=== PATIENT | male | born 1935 | race Caucasian/White ===

== ENCOUNTER 2017-06-23 11:40 | Inpatient (IN) | payer OTHER, MEDICARE ==
[~2017-06-23] VITALS: Ht 188 cm; Wt 90.9 kg
[2017-06-23 11:57] VITALS: BP 136/68; PULSE 79; RESP 20; TEMP 98.1; O2SAT 97
--- NOTE | 2017-06-23 12:08 | PD ---
HPI Chief Complaint: Fall Time Seen by Provider: 11:51 Travel History International Travel<30 days: No Contact w/Intl Traveler<30days: No Traveled to known affect area: No History of Present Illness HPI Patient is an 82-year-old male presenting to emergency Department for evaluation after sustaining a mechanical fall yesterday subsequently bumping his head. Per EMS patient was seen and evaluated at a hospital in [place] however his was not satisfied with the care he received an him here for evaluation. Patient is a very poor historian, he states that he was sitting in a chair got up and fell. He reports right-sided arm pain. He has a contusion to the left forehead. Patient is not quantifying his pain. He does deny any loss of consciousness. is en route to the hospital. PFSH Past Medical History Hx Anticoagulant Therapy: Yes (aspirin daily) Depression: Yes Cardiovascular Problems: Yes High Cholesterol: Yes Diabetes: Yes GERD: Yes Hypertension: Yes Neurologic: Yes (neuropathy) Reproductive: Yes (BPH) Social History Alcohol Use: No Tobacco Use: No Substance Use: No Allergies-Medications (Allergen,Severity, Reaction): Coded Allergies: No Known Allergies (Unverified , 06/23/17) Reported Meds & Prescriptions Reported Meds & Active Scripts Active Reported Aspirin Low Dose (Aspirin) 81 Mg Chew 81 Mg CHEW DAILY Isosorbide Dinitrate 20 Mg Tab 30 Mg PO HS Cymbalta DR (Duloxetine HCl) 30 Mg Capdr 30 Mg PO DAILY Gabapentin 600 Mg Tab 600 Mg PO HS Gabapentin 300 Mg Cap 300 Mg PO DAILY Atorvastatin (Atorvastatin Calcium) 40 Mg Tab 40 Mg PO HS Glimepiride 2 Mg Tab 2 Mg PO DAILY Take with breakfast or first main meal Finasteride 5 Mg Tab 5 Mg PO DAILY Do not crush. Pantoprazole (Pantoprazole Sodium) 40 Mg Tab 40 Mg PO DAILY Review of Systems Except as stated in HPI: all other systems reviewed are Neg Skin: Positive Other (contusion to left forehead) Physical Exam Exam Limitations: Poor Historian Narrative GENERAL: Well-developed, well-nourished, alert male. Resting in no acute distress. SKIN: Warm and dry. Contusion to left forehead. HEAD: Atraumatic. Normocephalic. EYES: Pupils equal and round. No scleral icterus. No injection or drainage. ENT: No nasal bleeding or discharge. Mucous membranes pink and moist. NECK: Trachea midline. No JVD. CARDIOVASCULAR: Regular rate and rhythm. RESPIRATORY: No accessory muscle use. Clear to auscultation. Breath sounds equal bilaterally. GASTROINTESTINAL: Abdomen soft, non-tender, nondistended. Hepatic and splenic margins not palpable. MUSCULOSKELETAL: Extremities without clubbing, cyanosis, or edema. No obvious deformities. NEUROLOGICAL: Awake and alert. 3/5 muscle strength in the right upper extremity , 5/5 muscle strength in left upper extremity and bilateral lower extremities. Patient oriented to self, place PSYCHIATRIC: Appropriate mood and affect; insight and judgment normal. Data Data Last Documented VS Vital Signs Date Time Temp Pulse Resp B/P (MAP) Pulse Ox O2 Delivery O2 Flow Rate FiO2 06/23/17 11:57 98.1 79 20 136/68 (90) [address] Brain W/O Iv Contrast(Rout) (06/23/17 ) Complete Blood Count With Diff (06/23/17 12:17) Comprehensive Metabolic Panel (06/23/17 12:17) Urinalysis - C+S If Indicated (06/23/17 12:17) Ecg Monitoring (06/23/17 12:17) Iv Access Insert/Monitor (06/23/17 12:17) Oximetry (06/23/17 12:17) Sodium Chloride 0.9% Flush (Ns Flush) (06/23/17 12:30) Ct Cerv Spine W/O Contrast (06/23/17 ) Urine Culture (06/23/17 12:55) Sodium Chlor 0.9% 1000 Ml Inj (Ns 1000 M (06/23/17 13:30) Ceftriaxone Inj (Rocephin Inj) (06/23/17 13:30) Urinary Catheter Insert/Apply (06/23/17 13:54) Gabapentin (Neurontin) (06/23/17 14:15) Admit Order (Ed Use Only) (06/23/17 14:42) Labs Laboratory Tests Test 06/23/17 12:40 06/23/17 12:55 White Blood Count 7.4 TH/MM3 Red Blood Count 3.55 MIL/MM3 Hemoglobin 10.4 GM/DL Hematocrit 31.8 % Mean Corpuscular Volume 89.6 FL Mean Corpuscular Hemoglobin 29.2 PG Mean Corpuscular Hemoglobin Concent 32.6 % Red Cell Distribution Width 19.0 % Platelet Count 155 TH/MM3 Mean Platelet Volume 9.4 FL Neutrophils (%) (Auto) 75.5 % Lymphocytes (%) (Auto) 13.0 % Monocytes (%) (Auto) 9.8 % Eosinophils (%) (Auto) 1.0 % Basophils (%) (Auto) 0.7 % Neutrophils # (Auto) 5.6 TH/MM3 Lymphocytes # (Auto) 1.0 TH/MM3 Monocytes # (Auto) 0.7 TH/MM3 Eosinophils # (Auto) 0.1 TH/MM3 Basophils # (Auto) 0.1 TH/MM3 CBC Comment DIFF FINAL Differential Comment Blood Urea Nitrogen 39 MG/DL Creatinine 3.27 MG/DL Random Glucose 229 MG/DL Total Protein 6.4 GM/DL Albumin 2.6 GM/DL Calcium Level 8.5 MG/DL Alkaline Phosphatase 75 U/L Aspartate Amino Transf (AST/SGOT) 23 U/L Alanine Aminotransferase (ALT/SGPT) 21 U/L Total Bilirubin 0.4 MG/DL Sodium Level 142 MEQ/L Potassium Level 4.1 MEQ/L Chloride Level 109 MEQ/L Carbon Dioxide Level 25.1 MEQ/L Anion Gap 8 MEQ/L Estimat Glomerular Filtration Rate 18 ML/MIN Urine Color YELLOW Urine Turbidity CLOUDY Urine pH 6.0 Urine Specific [place] 1.014 Urine Protein 100 mg/dL Urine Glucose (UA) NEG mg/dL Urine Ketones NEG mg/dL Urine Occult Blood MOD Urine Nitrite POS Urine Bilirubin NEG Urine Urobilinogen LESS THAN 2.0 MG/DL Urine Leukocyte Esterase LARGE Urine RBC 40 /hpf Urine WBC /hpf Urine WBC Clumps MANY Urine Bacteria MANY /hpf Microscopic Urinalysis Comment CATH-CULTURE IND MDM Medical Decision Making Medical Screen Exam Complete: Yes Emergency Medical Condition: Yes Interpretation(s) Last Impressions Head CT 06/23/17 0000 Signed Impressions: Service Date/Time: Friday, June 23, 2017 12:32 - CONCLUSION: No bleed or other acute intracranial abnormality. Chronic white matter changes. Alejandro Millan MD Cervical Spine CT 06/23/17 0000 Signed Impressions: Service Date/Time: Friday, June 23, 2017 12:33 - CONCLUSION: 1. Postsurgical features of anterior plate and screw with interbody bone plug at C5-7 without significant bony union. 2. Advanced multilevel degenerative spondylosis of the cervical spine most prominently at C5-7 with posterior osteophytes resulting in severe bony central canal narrowing. 3. Slight increased anterior disc height at C7-T1, likely degenerative and reflecting adjacent level flexion. Flexion/extension views may be performed if there is clinical concern regarding ligamentous instability. 4. No acute fracture. Wiliam Oropeza MD Laboratory Tests Test 06/23/17 12:40 06/23/17 12:55 White Blood Count 7.4 TH/MM3 Red Blood Count 3.55 MIL/MM3 Hemoglobin 10.4 GM/DL Hematocrit 31.8 % Mean Corpuscular Volume 89.6 FL Mean Corpuscular Hemoglobin 29.2 PG Mean Corpuscular Hemoglobin Concent 32.6 % Red Cell Distribution Width 19.0 % Platelet Count 155 TH/MM3 Mean Platelet Volume 9.4 FL Neutrophils (%) (Auto) 75.5 % Lymphocytes (%) (Auto) 13.0 % Monocytes (%) (Auto) 9.8 % Eosinophils (%) (Auto) 1.0 % Basophils (%) (Auto) 0.7 % Neutrophils # (Auto) 5.6 TH/MM3 Lymphocytes # (Auto) 1.0 TH/MM3 Monocytes # (Auto) 0.7 TH/MM3 Eosinophils # (Auto) 0.1 TH/MM3 Basophils # (Auto) 0.1 TH/MM3 CBC Comment DIFF FINAL Differential Comment Blood Urea Nitrogen 39 MG/DL Creatinine 3.27 MG/DL Random Glucose 229 MG/DL Total Protein 6.4 GM/DL Albumin 2.6 GM/DL Calcium Level 8.5 MG/DL Alkaline Phosphatase 75 U/L Aspartate Amino Transf (AST/SGOT) 23 U/L Alanine Aminotransferase (ALT/SGPT) 21 U/L Total Bilirubin 0.4 MG/DL Sodium Level 142 MEQ/L Potassium Level 4.1 MEQ/L Chloride Level 109 MEQ/L Carbon Dioxide Level 25.1 MEQ/L Anion Gap 8 MEQ/L Estimat Glomerular Filtration Rate 18 ML/MIN Urine Color YELLOW Urine Turbidity CLOUDY Urine pH 6.0 Urine Specific [place] 1.014 Urine Protein 100 mg/dL Urine Glucose (UA) NEG mg/dL Urine Ketones NEG mg/dL Urine Occult Blood MOD Urine Nitrite POS Urine Bilirubin NEG Urine Urobilinogen LESS THAN 2.0 MG/DL Urine Leukocyte Esterase LARGE Urine RBC 40 /hpf Urine WBC /hpf Urine WBC Clumps MANY Urine Bacteria MANY /hpf Microscopic Urinalysis Comment CATH-CULTURE IND Vital Signs Date Time Temp Pulse Resp B/P (MAP) Pulse Ox O2 Delivery O2 Flow Rate FiO2 06/23/17 11:57 98.1 79 20 136/68 (90) 97 Differential Diagnosis Contusion versus hemorrhage versus UTI versus other Narrative Course Patient is a 82-year-old male that presented to emergency department for evaluation after a fall yesterday. was not present initially, she is here now and states that he is normally able to transfer from a chair to his wheelchair but he was very weak yesterday. She states that he was seen in February and and discharged, throughout the night he remained very weak and unable to transfer. It took her as well as to neighbors to get him into the bed. She states that he has been increasingly more confused since yesterday. She brought him in today because he was also complaining of back pain last night. She is concerned because he had a significant cervical spine injury after fall previously. This may account for the right-sided weakness that he has on exam today. CT scan, labs, urinalysis ordered and pending. CT scan of the brain, read by the radiologist shows no acute integrating abnormality, chronic white matter changes. CT scan of the cervical spine which was also read by the radiologist shows postsurgical changes, degenerative disc disease, no acute fracture. Urinalysis is indicative of urinary tract infection, nitrite positive with hematuria. Patient was given 1 g Rocephin IV 1 dose. Chemistry with elevated BUN/creatinine 39/3.27, no labs to compare patient's baseline. IV fluid ordered. CBC reviewed, mild anemia with hemoglobin of 10.4/31.8. Discussed findings with patient and spouse. Due to patient's increasing weakness, increased risk for falls as well as urinary tract infection. Patient will be admitted under observation. Discussed with Dr. Juarez who accepted admission. Orders placed. Diagnosis Primary Impression: UTI (urinary tract infection) Qualified Codes: N39.0 - Urinary tract infection, site not specified; R31.9 - Hematuria, unspecified Additional Impressions: Acute renal failure Qualified Codes: N17.9 - Acute kidney failure, unspecified Weakness generalized Admitting Information Admitting Physician Requests: Observation Condition: Stable Miriam Richey Jun 23, 2017 12:07
[2017-06-23] MEDS ORDERED: FINA5TAB2 PO (12:19)
[2017-06-23] MEDS ORDERED: ASPI81CH6 CHEW (12:19)
[2017-06-23] MEDS ORDERED: GABA600T PO (12:19)
[2017-06-23] MEDS ORDERED: PANT40TA3 PO (12:19)
[2017-06-23] MEDS ORDERED: CYMB30CA PO (12:19)
[2017-06-23] MEDS ORDERED: ISOS20TA2 PO (12:19)
[2017-06-23] MEDS ORDERED: ATOR40TA16 PO (12:19)
[2017-06-23] MEDS ORDERED: GABA300C5 PO (12:19)
[2017-06-23] MEDS ORDERED: GLIM2TAB PO (12:19)
[2017-06-23] MEDS ORDERED: SODIUM CHLORIDE 0.9% FLUSH 5 ML FLUSH IV FLUSH PRN (12:30)
[2017-06-23 12:49] LABS: AUTOMATED NEUTROPHIL # 5.6 TH/MM3 (1.8-7.7); BASOPHIL # 0.1 TH/MM3 (0-0.2); BASOPHIL % 0.7 % (0.0-2.0); EOSINOPHIL # 0.1 TH/MM3 (0-0.4); HEMATOCRIT 31.8 % (39.0-51.0); HEMO FLAGS DIFF FINAL; MEAN CELL VOLUME 89.6 FL (80.0-100.0); MEAN CORPUSCULAR HEMOGLOBIN 29.2 PG (27.0-34.0); MEAN CORPUSCULAR HGB CONC 32.6 % (32.0-36.0); MONO % 9.8 % (0.0-8.0); NEUT % 75.5 % (16.0-70.0); PLATELET COUNT 155 TH/MM3 (150-450); RED BLOOD COUNT 3.55 MIL/MM3 (4.50-5.90); WHITE BLOOD COUNT 7.4 TH/MM3 (4.0-11.0)
--- NOTE | 2017-06-23 13:02 | RADRPT ---
EXAM DATE/TIME: 06/23/2017 12:32 [facility] COMPARISON: No previous studies available for comparison. INDICATIONS : Trauma; fall yesterday. RADIATION DOSE: 56.35 CTDIvol (mGy) MEDICAL HISTORY : Cardiovascular disease. Hypertension. SURGICAL HISTORY : None. ENCOUNTER: Initial ACUITY: 1 day PAIN SCALE: 4/10 LOCATION: cranial TECHNIQUE: Multiple contiguous axial images were obtained of the head. Using automated exposure control and adj ustment of the mA and/or kV according to patient size, radiation dose was kept as low as reasonably a chievable to obtain optimal diagnostic quality images. DICOM format image data is available electro nically for review and comparison. FINDINGS: CEREBRUM: The ventricles are normal for age. No evidence of midline shift, mass lesion, hemorrhage or acute in farction. No extra-axial fluid collections are seen. Chronic appearing diffuse low attenuation seen in the periventricular white matter. POSTERIOR FOSSA: The cerebellum and brainstem are intact. The 4th ventricle is midline. The cerebellopontine angle i s unremarkable. EXTRACRANIAL: 14 mm left maxillary mucous retention cyst. SKULL: The calvaria is intact. No evidence of skull fracture. CONCLUSION: No bleed or other acute intracranial abnormality. Chronic white matter changes. Alejandro Millan MD on June 23, 2017 at 12:59 Board Certified Radiologist. This report was verified electronically.
--- NOTE | 2017-06-23 13:02 | RADRPT ---
EXAM DATE/TIME: 06/23/2017 12:33 [facility] COMPARISON: No previous studies available for comparison. INDICATIONS : Trauma; fall. RADIATION DOSE: 22.44 CTDIvol (mGy) MEDICAL HISTORY : Cardiovascular disease. Hypertension. SURGICAL HISTORY : None. ENCOUNTER: Initial ACUITY: 1 day PAIN SCALE: 4/10 LOCATION: Bilateral neck TECHNIQUE: Volumetric scanning of the cervical spine was performed. Multiplanar reconstructions in the sagittal, coronal and oblique axial planes were performed. Using automated exposure control and adjustment o f the mA and/or kV according to patient size, radiation dose was kept as low as reasonably achievable to obtain optimal diagnostic quality images. DICOM format image data is available electronically f or review and comparison. FINDINGS: Prior anterior plate and screw fixation at C5-7 with interbody bone plug through C6. There is no ryder d bony union. Hardware is well positioned and appears intact. Vertebral body heights are maintained. Osseous structures are intact without evidence for acute bony fracture. Dens is intact. Loss of xvai l cervical lordosis. There is slight increased anterior disc height at C7-T1. Sagittal alignment is o therwise maintained. There is a normal C1-2 relationship. Facets are normally aligned. Multilevel deg enerative spondylosis with prominent posterior osteophytes at C5-6 and C6-7 and variable multilevel f acet arthropathy. Bony central canal measures approximately 8 mm at C5-6 with significant effacement of the lateral recesses bilaterally. This is slightly less prominent at C6-7. There is no significant prevertebral soft tissue hematoma. No significant cervical adenopathy or gross mass. The thyroid mohini ears unremarkable. Visualized lung apices are clear without pneumothorax. CONCLUSION: 1. Postsurgical features of anterior plate and screw with interbody bone plug at C5-7 without signifi cant bony union. 2. Advanced multilevel degenerative spondylosis of the cervical spine most prominently at C5-7 with p osterior osteophytes resulting in severe bony central canal narrowing. 3. Slight increased anterior disc height at C7-T1, likely degenerative and reflecting adjacent level flexion. Flexion/extension views may be performed if there is clinical concern regarding ligamentous instability. 4. No acute fracture. Wiliam Oropeza MD on June 23, 2017 at 12:52 Board Certified Radiologist. This report was verified electronically.
[2017-06-23 13:11] LABS: ALT (GPT) 21 U/L (12-78); ANION GAP 8 MEQ/L (5-15); AST (GOT) 23 U/L (15-37); BICARBONATE 25.1 MEQ/L (21.0-32.0); BLOOD UREA NITROGEN 39 MG/DL (7-18); CHLORIDE 109 MEQ/L (98-107); GLOMERULAR FILTRATION RATE 18 ML/MIN (>89); POTASSIUM 4.1 MEQ/L (3.5-5.1); SODIUM (NA) 142 MEQ/L (136-145)
[2017-06-23 13:13] LABS: ALKALINE PHOSPHATASE 75 U/L (45-117); TOTAL BILIRUBIN ADULT 0.4 MG/DL (0.2-1.0)
[2017-06-23 13:14] LABS: BACTERIA, URINE MANY /hpf; BLOOD, URINE MOD (NEG); GLUCOSE,URINE NEG (NEG); KETONE, URINE NEG (NEG); NITRITE,URINE POS (NEG); URINE COLOR YELLOW (YELLW/STRAW)
[2017-06-23 13:16] LABS: COMMENT (UR) CATH-CULTURE IND; CULTURE IF INDICATED CATH CULTURE IND
[2017-06-23] MEDS ORDERED: cefTRIAXone INJ 1,000 MG in SODIUM CHLORIDE 0.9% INJ 100 ML IV ONE (13:30)
[2017-06-23] MEDS ORDERED: SODIUM CHLOR 0.9% 1000 ML INJ 1,000 ML IV ONE (13:30)
[2017-06-23] MEDS ORDERED: GABAPENTIN 100 MG CAP PO ONE (14:15)
[2017-06-23] MEDS ORDERED: BISACODYL 10 MG SUPP RECTAL PRN (14:45)
[2017-06-23] MEDS ORDERED: NALOXONE HCL 0.4 MG/ML AMP IV PUSH PRN (14:45)
[2017-06-23] MEDS ORDERED: ONDANSETRON HCL 4 MG/2 ML VIAL IVP PRN (14:45)
[2017-06-23] MEDS ORDERED: LACTULOSE SYRUP 20 GM/30 ML CUP PO PRN (14:45)
[2017-06-23] MEDS ORDERED: SENNOSIDES 8.6 MG TAB PO PRN (14:45)
[2017-06-23] MEDS ORDERED: MAGNESIUM HYDROXIDE SUSP 30 ML CUP PO PRN (14:45)
[2017-06-23] MEDS ORDERED: SODIUM CHLORIDE 0.9% FLUSH 10 ML FLUSH IV FLUSH PRN (14:45)
[2017-06-23 15:19] VITALS: BP 167/78; PULSE 78; RESP 20; O2SAT 98
--- NOTE | 2017-06-23 15:22 | HHI.HP ---
HPI Service [facility] Primary Care Physician Errol Klein MD Admission Diagnosis UTI, ARF Diagnoses: Travel History International Travel<30 Days: No Contact w/Intl Traveler <30 Da: No Traveled to Known Affected Are: No History of Present Illness Patient is a 82-year-old male with past medical history of hyperlipidemia, AR, neuropathy, GERD, diabetes, BPH comes in to the emergency room status post fall. at bedside helps with the history and states that he was trying to transfer from bed to his wheelchair when he tried to get up , tried holding his walker and he fell. Pt states that he experienced weakness in his upper extremities which is new. Patient hit the front of his head. He complained to her of neck pain. Patient denied any chest pain, lightheadedness or dizziness. Denies any burning with urination or increase in urinary frequency. However , states that prior to March he was treated on multiple occasions about 4 times for urinary tract infection until they were able to get cultures and he was appropriately treated. It has been about 3 months since he hasn't been on any antibiotics. denies any prior history of kidney failures or kidney disease. Patient admits to feeling nauseous however he denies any vomiting or fevers or chills. tells me after the fall she noted some fasciculations in his upper extremities and tremors of the upper extremities which is new for him. Review of Systems Except as stated in HPI: all other systems reviewed are Neg Past Family Social History Past Medical History Hyperlipidemia, AR, neuropathy, GERD, diabetes, BPH, anemia of unknown origin requiring blood transfusion Past Surgical History Cervicals spine surgery, cardiac stent placement 1998, lumbar surgery, cholecystectomy Reported Medications Reported Meds & Active Scripts Active Reported Aspirin Low Dose (Aspirin) 81 Mg Chew 81 Mg CHEW DAILY Isosorbide Dinitrate 20 Mg Tab 30 Mg PO HS Cymbalta DR (Duloxetine HCl) 30 Mg Capdr 30 Mg PO DAILY Gabapentin 600 Mg Tab 600 Mg PO HS Gabapentin 300 Mg Cap 300 Mg PO DAILY Atorvastatin (Atorvastatin Calcium) 40 Mg Tab 40 Mg PO HS Glimepiride 2 Mg Tab 2 Mg PO DAILY Take with breakfast or first main meal Finasteride 5 Mg Tab 5 Mg PO DAILY Do not crush. Pantoprazole (Pantoprazole Sodium) 40 Mg Tab 40 Mg PO DAILY Allergies: Coded Allergies: No Known Allergies (Unverified , 06/23/17) Family History Mother was healthy and lived to be 98. Father of prostate cancer Social History Denies any alcohol use or illegal drug use. Admits to smoking pipes and cigars Physical Exam Vital Signs Vital Signs Date Time Temp Pulse Resp B/P (MAP) Pulse Ox O2 Delivery O2 Flow Rate FiO2 06/23/17 11:57 98.1 79 20 136/68 (90) 97 Physical Exam GENERAL: This is an elderly male somewhat hard of hearing. Pleasant SKIN: No rashes, ecchymoses or lesions. Cool and dry. HEAD: Tenderness to palpation in the left frontal area, abrasion noted but no signs of infection or bleeding. EYES: Pupils equal round and reactive. Extraocular motions intact. No scleral icterus. No injection or drainage. ENT: Nose without drainage. Mucous membranes somewhat dry. Throat without erythema, tonsillar hypertrophy or exudate. Uvula midline. Airway patent. NECK: Trachea midline. I did palpate the back of his neck and at times he does experience some discomfort. However he is able to rotate left and right are up and down his neck CARDIOVASCULAR: Regular rate and rhythm without murmurs RESPIRATORY: Clear to auscultation. Breath sounds equal bilaterally. No wheezes GASTROINTESTINAL: Abdomen soft, non-tender, nondistended, obese. No guarding. : Medrano catheter in place with blood-tinged urine MUSCULOSKELETAL: Extremities without edema. There is decreased strength in his lower extremities almost a 4 out of 5 bilaterally. NEUROLOGICAL: Awake and alert. Cranial nerves II through XII intact. Normal speech. Laboratory Laboratory Tests Test 06/23/17 12:40 06/23/17 12:55 White Blood Count 7.4 Red Blood Count 3.55 Hemoglobin 10.4 Hematocrit 31.8 Mean Corpuscular Volume 89.6 Mean Corpuscular Hemoglobin 29.2 Mean Corpuscular Hemoglobin Concent 32.6 Red Cell Distribution Width 19.0 Platelet Count 155 Mean Platelet Volume 9.4 Neutrophils (%) (Auto) 75.5 Lymphocytes (%) (Auto) 13.0 Monocytes (%) (Auto) 9.8 Eosinophils (%) (Auto) 1.0 Basophils (%) (Auto) 0.7 Neutrophils # (Auto) 5.6 Lymphocytes # (Auto) 1.0 Monocytes # (Auto) 0.7 Eosinophils # (Auto) 0.1 Basophils # (Auto) 0.1 CBC Comment DIFF FINAL Differential Comment Blood Urea Nitrogen 39 Creatinine 3.27 Random Glucose 229 Total Protein 6.4 Albumin 2.6 Calcium Level 8.5 Alkaline Phosphatase 75 Aspartate Amino Transf (AST/SGOT) 23 Alanine Aminotransferase (ALT/SGPT) 21 Total Bilirubin 0.4 Sodium Level 142 Potassium Level 4.1 Chloride Level 109 Carbon Dioxide Level 25.1 Anion Gap 8 Estimat Glomerular Filtration Rate 18 Urine Color YELLOW Urine Turbidity CLOUDY Urine pH 6.0 Urine Specific [place] 1.014 Urine Protein 100 Urine Glucose (UA) NEG Urine Ketones NEG Urine Occult Blood MOD Urine Nitrite POS Urine Bilirubin NEG Urine Urobilinogen LESS THAN 2.0 Urine Leukocyte Esterase LARGE Urine RBC 40 Urine WBC Urine WBC Clumps MANY Urine Bacteria MANY Microscopic Urinalysis Comment CATH-CULTURE IND Date/Time Source Procedure Growth Status 06/23/17 12:55 Urine Catheterized Urine Urine Culture Pending Received Result Diagram: 06/23/17 1240 06/23/17 1240 Imaging Last Impressions Head CT 06/23/17 0000 Signed Impressions: Service Date/Time: Friday, June 23, 2017 12:32 - CONCLUSION: No bleed or other acute intracranial abnormality. Chronic white matter changes. Alejandro Millan MD Cervical Spine CT 06/23/17 0000 Signed Impressions: Service Date/Time: Friday, June 23, 2017 12:33 - CONCLUSION: 1. Postsurgical features of anterior plate and screw with interbody bone plug at C5-7 without significant bony union. 2. Advanced multilevel degenerative spondylosis of the cervical spine most prominently at C5-7 with posterior osteophytes resulting in severe bony central canal narrowing. 3. Slight increased anterior disc height at C7-T1, likely degenerative and reflecting adjacent level flexion. Flexion/extension views may be performed if there is clinical concern regarding ligamentous instability. 4. No acute fracture. MD Osman Vides VTE Risk Assessment Caprini VTE Risk Assessment: Mod/High Risk (score >= 2) Caprini Risk Assessment Model Point Value = 1 Point Value = 2 Point Value = 3 Point Value = 5 Age 41-60 Minor surgery BMI > 25 kg/m2 Swollen legs Varicose veins or History of unexplained or recurrent spontaneous Oral contraceptives or hormone replacement Sepsis (< 1 month) Serious lung disease, including pneumonia (< 1 month) Abnormal pulmonary function Acute myocardial infarction Congestive heart failure (< 1 month) History of inflammatory bowel disease Medical patient at bed rest Age 61-74 Arthroscopic surgery Major open surgery (> 45 min) Laparoscopic surgery (> 45 min) Malignancy Confined to bed (> 72 hours) Immobilizing plaster cast Central venous access Age >= 75 History of VTE Family history of VTE Factor V Leiden Prothrombin [id number] Lupus anticoagulant Anticardiolipin antibodies Elevated serum homocysteine Heparin-induced thrombocytopenia Other congenital or acquired thrombophilia Stroke (< 1 month) Elective arthroplasty Hip, pelvis, or leg fracture Acute spinal cord injury (< 1 month) Prophylaxis Regimen Total Risk Factor Score Risk Level Prophylaxis Regimen 0-1 Low Early ambulation 2 Moderate Order ONE of the following: *Sequential Compression Device (SCD) *Heparin 5000 units SQ BID 3-4 Higher Order ONE of the following medications: *Heparin 5000 units SQ TID *Enoxaparin/Lovenox 40 mg SQ daily (WT < 150 kg, CrCl > 30 mL/min) *Enoxaparin/Lovenox 30 mg SQ daily (WT < 150 kg, CrCl > 10-29 mL/min) *Enoxaparin/Lovenox 30 mg SQ BID (WT < 150 kg, CrCl > 30 mL/min) AND/OR *Sequential Compression Device (SCD) 5 or more Highest Order ONE of the following medications: *Heparin 5000 units SQ TID (Preferred with Epidurals) *Enoxaparin/Lovenox 40 mg SQ daily (WT < 150 kg, CrCl > 30 mL/min) *Enoxaparin/Lovenox 30 mg SQ daily (WT < 150 kg, CrCl > 10-29 mL/min) *Enoxaparin/Lovenox 30 mg SQ BID (WT < 150 kg, CrCl > 30 mL/min) AND *Sequential Compression Device (SCD) Assessment and Plan Assessment and Plan UTI. Urine concerning for UTI. Apparently, patient was treated 4 times prior to March for urinary tract infection. Patient received a dose of Rocephin in the emergency room. I will continue IV Rocephin .Follow urine cultures. Discussed with RN and apparently patient had loose stools while on antibiotics. We will add Lactinex CORINNE: denies any prior history of kidney disease. Creatinine was 3.27 today. Patient does have a history of BPH which could be causing urinary obstruction. Patient only uses condom catheter at home and does not self catheterize. We'll check an ultrasound of the bladder to rule out any hydronephrosis or obstruction. Will give IVFs, gentle hydration due to age. NS@ 75ml/hr. Monitor Cr levels closely and if worsening, will consult nephrology. Fall/neck pain/upper extremity weakness: Pt admits to weakness in his upper extremities at the time of the fall and then later complained of excruciating neck pain to his . Here pt doesn't complain of pain to me but just discomfort w palpation, Will get PT to evaluate the patient. Will consult neurosx for further eval and recs. CT neck revealed advanced multilevel degenerative spondylosis of the cervical spine most prominent at C5 to C7 with posterior osteophytes resulting in severe bony central canal narrowing. is very concerned about patient's neck pain and weakness in the upper extremity. I will get a neurosurgical evaluation for further recommendations. Mild anemia: Hemoglobin 10.4 today. Monitor H&H hyperlipidemia, AR, neuropathy, GERD, diabetes, BPH: We'll resume all of patient's home medications. Patient is on aspirin and will monitor hemoglobin closely. Hold Glimepiride due to kidney function, Will place him on low-dose insulin sliding scale monitor his blood sugars. DVT prophylaxis: SCDs/heparin. Hold anticoagulation if hemoglobin continues to drop Code Status Patient wishes to be full code Discussed Condition With Patient, ER staff, and Justina Juarez MD Jun 23, 2017 15:22
[2017-06-23] MEDS ORDERED: GLUCAGON 1 MG/ML VIAL OTHER PRN (15:45)
[2017-06-23] MEDS: SODIUM CHLOR 0.9% 1000 ML INJ 1,000 ML IV SCH (15:52)
--- NOTE | 2017-06-23 16:16 | RADRPT ---
EXAM DATE/TIME: 06/23/2017 15:47 [place] COMPARISON: No previous studies available for comparison. INDICATIONS : Increased BUN and creatinine. MEDICAL HISTORY : Benign prostatic hyperplasia, (BPH) Hypercholesterolemia. Hypertension. Gastroesophageal reflux. Diab etes. Cardiac disorders. SURGICAL HISTORY : Coronary stent. ENCOUNTER: Initial ACUITY: 1 day PAIN SCORE: 6/10 LOCATION: Bilateral flank MEASUREMENTS: RIGHT KIDNEY: 11.7 x 4.9 x 5.1 cm LEFT KIDNEY: 11.6 x 5.1 x 5.6 cm FINDINGS: RIGHT KIDNEY: 2.7 x 2.8 x 2.9 cm upper pole simple cyst. Mild hydronephrosis is present. LEFT KIDNEY: There is mild hydronephrosis present. BLADDER: The bladder is abnormal. A Medrano catheter is present within the bladder and there is abnormal soft ti ssue echotexture seen suggesting diffuse wall thickening and possible mass. It is not well evaluated on this study. CONCLUSION: 1. Mild hydronephrosis. 2. The bladder is abnormal. It is contracted and therefore not well evaluated with Medrano catheter in place however there is a concern for marked bladder wall thickening, possibility of mass is difficult to exclude. 3. Right renal cyst. Luis Garcia MD on June 23, 2017 at 16:12 Board Certified Radiologist. This report was verified electronically.
[2017-06-23] MEDS: LACTOBACILLUS ACIDOPHILUS 1 GM PACKET PO SCH (16:48)
[2017-06-23] MEDS: INSULIN ASPART SUPPLEMENTAL SCALE SQ SCH ×2 (16:53→21:56)
[2017-06-23 20:00] VITALS: BP 171/77; PULSE 81; RESP 18; TEMP 97.2; O2SAT 96
[2017-06-23] MEDS: SODIUM CHLORIDE 0.9% FLUSH 10 ML FLUSH IV FLUSH SCH (21:44)
[2017-06-23] MEDS: DOCUSATE SODIUM 50 MG/SENNA 8.6 MG TAB PO SCH (21:53)
[2017-06-23] MEDS: GABAPENTIN 300 MG CAP PO SCH (21:53)
[2017-06-23] MEDS: ISOSORBIDE DINITRATE 10 MG TAB PO SCH (21:54)
[2017-06-23] MEDS: ATORVASTATIN 40 MG TAB PO SCH (21:54)
[2017-06-24] VITALS: BP 148/76; PULSE 74; RESP 17; TEMP 96.8; O2SAT 95
[2017-06-24 00:45] LABS: HEMATOCRIT 29.5 % (39.0-51.0); REVIEW FLAG FINAL
[2017-06-24] MEDS: HEPARIN SODIUM - SQ 10,000 UNITS/ML VIAL SQ SCH ×2 (02:04→08:14)
[2017-06-24] MEDS: SODIUM CHLOR 0.9% 1000 ML INJ 1,000 ML IV SCH ×2 (02:09→17:03)
[2017-06-24 04:00] VITALS: BP 117/66; PULSE 88; RESP 17; TEMP 98.3; O2SAT 96
[2017-06-24 06:13] LABS: BICARBONATE 25.4 MEQ/L (21.0-32.0)
[2017-06-24 06:58] LABS: HEMATOCRIT 31.6 % (39.0-51.0); REVIEW FLAG FINAL
[2017-06-24] MEDS: INSULIN ASPART SUPPLEMENTAL SCALE SQ SCH ×4 (07:48→20:50)
[2017-06-24 08:00] VITALS: BP 129/65; PULSE 56; RESP 19; TEMP 96.9; O2SAT 96
[2017-06-24] MEDS: FINASTERIDE 5 MG TAB PO SCH (08:12)
[2017-06-24] MEDS: PANTOPRAZOLE SOD 40 MG DELAYED RELEASE TAB PO SCH (08:13)
[2017-06-24] MEDS: DULoxetine HCl DR 30 MG CAP PO SCH (08:13)
[2017-06-24] MEDS: DOCUSATE SODIUM 50 MG/SENNA 8.6 MG TAB PO SCH ×2 (08:16→20:17)
[2017-06-24] MEDS: SODIUM CHLORIDE 0.9% FLUSH 10 ML FLUSH IV FLUSH SCH ×2 (08:16→20:17)
[2017-06-24] MEDS: LACTOBACILLUS ACIDOPHILUS 1 GM PACKET PO SCH ×3 (08:17→17:03)
[2017-06-24] MEDS ORDERED: GABAPENTIN 300 MG CAP PO SCH (09:00)
[2017-06-24] MEDS ORDERED: ASPIRIN 81 MG CHEW TAB CHEW SCH (09:00)
[2017-06-24] MEDS ORDERED: INFLUENZA VIRUS VACCINE (QUADRIVALENT) 0.5 ML SYR IM ONE (10:00)
[2017-06-24] MEDS ORDERED: PNEUMOCOCCAL POLYVALENT INJ 25 MCG/0.5 ML SYR IM ONE (10:00)
--- NOTE | 2017-06-24 11:05 | PD.CONS ---
[facility] Service neurosurgery Consult Requested By Dr Veras Reason for Consult Cervical stenosis Primary Care Physician Errol Klein MD History of Present Illness This is a 82-year-old male with past medical history of hyperlipidemia, LA, neuropathy, GERD, diabetes, BPH comes in to the emergency room status post fall. at bedside helps with the history and states that he was trying to transfer from bed to his wheelchair when he tried to get up , tried holding his walker and he fell. Pt states that he experienced weakness in his upper extremities which is new. Patient hit the front of his head. He complained to her of neck pain. Patient denied any chest pain, lightheadedness or dizziness. Denies any burning with urination or increase in urinary frequency. However , states that prior to March he was treated on multiple occasions about 4 times for urinary tract infection until they were able to get cultures and he was appropriately treated. It has been about 3 months since he hasn't been on any antibiotics. He denies any prior history of kidney failures or kidney disease. Reports feeling nauseous however he denies any vomiting or fevers or chills. tells me after the fall she noted some fasciculations in his upper extremities and tremors of the upper extremities which is new for him. CT C spine showed stenosis. Neurosurgical consuktation was requested Past Family Social History Allergies: Coded Allergies: No Known Allergies (Unverified , 06/23/17) Past Medical History Hyperlipidemia, LA, neuropathy, GERD, diabetes, BPH, anemia of unknown origin requiring blood transfusion Past Surgical History Past Surgical History ACDF Cervical spine surgery, cardiac stent placement 1998, lumbar surgery, cholecystectomy Reported Medications Reported Medications Reported Meds & Active Scripts Active Reported Aspirin Low Dose (Aspirin) 81 Mg Chew 81 Mg CHEW DAILY Isosorbide Dinitrate 20 Mg Tab 30 Mg PO HS Cymbalta DR (Duloxetine HCl) 30 Mg Capdr 30 Mg PO DAILY Gabapentin 600 Mg Tab 600 Mg PO HS Gabapentin 300 Mg Cap 300 Mg PO DAILY Atorvastatin (Atorvastatin Calcium) 40 Mg Tab 40 Mg PO HS Glimepiride 2 Mg Tab 2 Mg PO DAILY Take with breakfast or first main meal Finasteride 5 Mg Tab 5 Mg PO DAILY Do not crush. Pantoprazole (Pantoprazole Sodium) 40 Mg Tab 40 Mg PO DAILY Active Ordered Medications Current Medications Medications (Trade) Dose Ordered Sig/Oracio Route Start Time Stop Time Status Last Admin Sodium Chloride 1,000 ml @ 75 mls/hr [id number] IV 06/23/17 15:00 06/24/17 17:03 (NS Flush) 2 ml UNSCH PRN IV FLUSH 06/23/17 14:45 (NS Flush) 2 ml BID IV FLUSH 06/23/17 21:00 (Zofran Inj) 4 mg Q6H PRN IVP 06/23/17 14:45 (Narcan Inj) 0.4 mg UNSCH PRN IV PUSH 06/23/17 14:45 (Georgette-Colace) 1 tab BID PO 06/23/17 21:00 06/23/17 21:53 (Milk Of Magnesia Liq) 30 ml Q12H PRN PO 06/23/17 14:45 (Senokot) 17.2 mg Q12H PRN PO 06/23/17 14:45 (Dulcolax Supp) 10 mg DAILY PRN RECTAL 06/23/17 14:45 (Lactulose Liq) 30 ml DAILY PRN PO 06/23/17 14:45 Ceftriaxone Sodium 1000 mg/ Sodium Chloride 100 ml @ 200 mls/hr Q24H IV 06/24/17 14:00 06/24/17 13:35 (Lactinex Pkt) 1 gm TID PO 06/23/17 18:00 06/24/17 17:03 (Heparin Inj) 5,000 units Q12HR SQ 06/23/17 21:00 06/24/17 08:14 (Aspirin Chew) 81 mg DAILY CHEW 06/24/17 09:00 06/24/17 08:12 (Lipitor) 40 mg HS PO 06/23/17 21:00 06/23/17 21:54 (Cymbalta Dr) 30 mg DAILY PO 06/24/17 09:00 06/24/17 08:13 (Proscar) 5 mg DAILY PO 06/24/17 09:00 06/24/17 08:12 (Neurontin) 600 mg HS PO 06/23/17 21:00 06/23/17 21:53 (Isordil) 30 mg HS PO 06/23/17 21:00 06/23/17 21:54 (Protonix) 40 mg DAILY PO 06/24/17 09:00 06/24/17 08:13 (D50w (Vial) Inj) 50 ml UNSCH PRN IV PUSH 06/23/17 15:45 (Glucagon Inj) 1 mg UNSCH PRN OTHER 06/23/17 15:45 (NovoLOG SUPPLEMENTAL SCALE) 1 ACHS SLIDING SCALE SQ 06/23/17 17:00 06/24/17 13:35 (Neurontin) 300 mg TID PO 06/24/17 18:00 06/24/17 16:14 Family History Mother was healthy and lived to be . Father of prostate cancer Social History Denies any alcohol use or illegal drug use. Admits to smoking pipes and cigars Physical Exam Vital Signs Vital Signs Date Time Temp Pulse Resp B/P (MAP) Pulse Ox O2 Delivery O2 Flow Rate FiO2 06/24/17 08:00 96.9 56 19 129/65 (86) 96 06/24/17 04:00 98.3 88 17 117/66 (83) 96 06/24/17 00:00 96.8 74 17 148/76 (100) 95 06/23/17 20:00 97.2 81 18 171/77 (108) 96 06/23/17 16:48 06/23/17 15:19 78 20 167/78 (107) 98 Room Air 06/23/17 11:57 98.1 79 20 136/68 (90) 97 Physical Exam The patient is alert, awake and oriented to time, place and person. Speech is fluent. Higher cognitive functions are normal. Cranial nerve examination demonstrates the pupils to be equal, round, and reactive to light. Extra-ocular movements are intact. Facial motor and sensory function are normal and symmetrical. Gross hearing is intact, bilaterally. The uvula is midline and elevates symmetrically with the soft palate. Sternocleidomastoid and trapezius muscles have normal and symmetrical strength. Other cranial nerves are intact. Neck is soft and supple. Cervical spine has a decreased range of motion in anterior flexion, extension, lateral bending, and rotation without pain. There is no tenderness to palpation to the spinous processes or paraspinal muscles. Muscle testing reveals normal bulk and tone overall without rigidity, spasticity , fasciculations, or atrophy. Muscle strength is 4/5 in his deltod, biceps 4/5, triceps, brachioradialis 4 on the left, 4+ on the right, wrist extension and binder and box builder 3/5 on the right, 4/5 on the left. . In the lower extremities, strength is 4+/5 in both iliopsoas, quadriceps, hamstrings, plantar flexion, dorsiflexion, and extensor hallicus longus. Sensory examination is decreased in a C6 and C7 dermatome Deep tendon reflexes are 2+ and symmetrical in the biceps, triceps, and brachioradialis, bilaterally, in the upper extremities. In the lower extremities , the patellar and Achilles are 2+, bilaterally. There is a bilateral Babinsky , no clonus Cerebellar examination is intact to [id number] test, rapid rhythmic alternating motion. There is no dysmetria, dysdiadochokinesia, truncal ataxia, or tremor. Laboratory Laboratory Tests Test 06/23/17 12:40 06/23/17 12:55 06/24/17 00:13 06/24/17 04:36 White Blood Count 7.4 Red Blood Count 3.55 Hemoglobin 10.4 9.9 Hematocrit 31.8 29.5 Mean Corpuscular Volume 89.6 Mean Corpuscular Hemoglobin 29.2 Mean Corpuscular Hemoglobin Concent 32.6 Red Cell Distribution Width 19.0 Platelet Count 155 Mean Platelet Volume 9.4 Neutrophils (%) (Auto) 75.5 Lymphocytes (%) (Auto) 13.0 Monocytes (%) (Auto) 9.8 Eosinophils (%) (Auto) 1.0 Basophils (%) (Auto) 0.7 Neutrophils # (Auto) 5.6 Lymphocytes # (Auto) 1.0 Monocytes # (Auto) 0.7 Eosinophils # (Auto) 0.1 Basophils # (Auto) 0.1 CBC Comment DIFF FINAL Differential Comment Blood Urea Nitrogen 39 36 Creatinine 3.27 2.77 Random Glucose 229 120 Total Protein 6.4 Albumin 2.6 Calcium Level 8.5 8.2 Alkaline Phosphatase 75 Aspartate Amino Transf (AST/SGOT) 23 Alanine Aminotransferase (ALT/SGPT) 21 Total Bilirubin 0.4 Sodium Level 142 144 Potassium Level 4.1 4.0 Chloride Level 109 111 Carbon Dioxide Level 25.1 25.4 Anion Gap 8 8 Estimat Glomerular Filtration Rate 18 22 Urine Color YELLOW Urine Turbidity CLOUDY Urine pH 6.0 Urine Specific [place] 1.014 Urine Protein 100 Urine Glucose (UA) NEG Urine Ketones NEG Urine Occult Blood MOD Urine Nitrite POS Urine Bilirubin NEG Urine Urobilinogen LESS THAN 2.0 Urine Leukocyte Esterase LARGE Urine RBC 40 Urine WBC Urine WBC Clumps MANY Urine Bacteria MANY Microscopic Urinalysis Comment CATH-CULTURE IND Test 06/24/17 06:13 Hemoglobin 10.5 Hematocrit 31.6 Date/Time Source Procedure Growth Status 06/23/17 12:55 Urine Catheterized Urine Urine Culture Pending Received Result Diagram: 06/24/17 0613 06/24/17 0436 Imaging Last 48 hours Impressions Renal Ultrasound 06/23/17 0000 Signed Impressions: Service Date/Time: Friday, June 23, 2017 15:47 - CONCLUSION: 1. Mild hydronephrosis. 2. The bladder is abnormal. It is contracted and therefore not well evaluated with Medrano catheter in place however there is a concern for marked bladder wall thickening, possibility of mass is difficult to exclude. 3. Right renal cyst. Luis Garcia MD Head CT 06/23/17 0000 Signed Impressions: Service Date/Time: Friday, June 23, 2017 12:32 - CONCLUSION: No bleed or other acute intracranial abnormality. Chronic white matter changes. Alejandro Millan MD Cervical Spine CT 06/23/17 0000 Signed Impressions: Service Date/Time: Friday, June 23, 2017 12:33 - CONCLUSION: 1. Postsurgical features of anterior plate and screw with interbody bone plug at C5-7 without significant bony union. 2. Advanced multilevel degenerative spondylosis of the cervical spine most prominently at C5-7 with posterior osteophytes resulting in severe bony central canal narrowing. 3. Slight increased anterior disc height at C7-T1, likely degenerative and reflecting adjacent level flexion. Flexion/extension views may be performed if there is clinical concern regarding ligamentous instability. 4. No acute fracture. Wiliam Oropeza MD Assessment and Plan Assessment and Plan Caprini VTE Risk Assessment Caprini VTE Risk Assessment: No/Low Risk (score <= 1) Caprini Risk Assessment Model Point Value = 1 Point Value = 2 Point Value = 3 Point Value = 5 Age 41-60 Minor surgery BMI > 25 kg/m2 Swollen legs Varicose veins or History of unexplained or recurrent spontaneous Oral contraceptives or hormone replacement Sepsis (< 1 month) Serious lung disease, including pneumonia (< 1 month) Abnormal pulmonary function Acute myocardial infarction Congestive heart failure (< 1 month) History of inflammatory bowel disease Medical patient at bed rest Age 61-74 Arthroscopic surgery Major open surgery (> 45 min) Laparoscopic surgery (> 45 min) Malignancy Confined to bed (> 72 hours) Immobilizing plaster cast Central venous access Age >= 75 History of VTE Family history of VTE Factor V Leiden Prothrombin [id number] Lupus anticoagulant Anticardiolipin antibodies Elevated serum homocysteine Heparin-induced thrombocytopenia Other congenital or acquired thrombophilia Stroke (< 1 month) Elective arthroplasty Hip, pelvis, or leg fracture Acute spinal cord injury (< 1 month) Prophylaxis Regimen Total Risk Factor Score Risk Level Prophylaxis Regimen 0-1 Low Early ambulation 2 Moderate Order ONE of the following: *Sequential Compression Device (SCD) *Heparin 5000 units SQ BID 3-4 Higher Order ONE of the following medications: *Heparin 5000 units SQ TID *Enoxaparin/Lovenox 40 mg SQ daily (WT < 150 kg, CrCl > 30 mL/min) *Enoxaparin/Lovenox 30 mg SQ daily (WT < 150 kg, CrCl > 10-29 mL/min) *Enoxaparin/Lovenox 30 mg SQ BID (WT < 150 kg, CrCl > 30 mL/min) AND/OR *Sequential Compression Device (SCD) 5 or more Highest Order ONE of the following medications: *Heparin 5000 units SQ TID (Preferred with Epidurals) *Enoxaparin/Lovenox 40 mg SQ daily (WT < 150 kg, CrCl > 30 mL/min) *Enoxaparin/Lovenox 30 mg SQ daily (WT < 150 kg, CrCl > 10-29 mL/min) *Enoxaparin/Lovenox 30 mg SQ BID (WT < 150 kg, CrCl > 30 mL/min) AND *Sequential Compression Device (SCD) Attending Statement I reviewed his clinical and radiological fndings. He has clinical evidence of cervical myelopathy. I recommend an MRI cervical spine. I discussed with him the alternatives of treatment. Will defer recommendations to upon completion of MRI Continue Pulmonary.aggressive pulmonary toilette, nasotracheal suction, and breathing treatments with nebulizers. BPH. Consult urology Nutrition. Continue Oral diet Renal. monitor closely urine output, BUN and creatinine Endocrine. Monitor serial Acu checks and SSI as needed in detail ID monitor for signs of infection Continue Protonix for stress ulcer prophylaxis Continue Ashu hose and SCD's for DVT prophylaxis. Gunnar Gambino MD Jun 24, 2017 11:05
[2017-06-24 12:00] VITALS: BP 160/81; PULSE 83; RESP 21; TEMP 97.4; O2SAT 97
[2017-06-24] MEDS: cefTRIAXone INJ 1,000 MG in SODIUM CHLORIDE 0.9% INJ 100 ML IV SCH (13:35)
--- NOTE | 2017-06-24 15:54 | HHI.PR ---
Subjective Remarks no major complaints denies cp/sob denies abdominal pain, nausea or vomiting (+) hematuria Objective Vitals Vital Signs Date Time Temp Pulse Resp B/P (MAP) Pulse Ox O2 Delivery O2 Flow Rate FiO2 06/24/17 12:00 97.4 83 21 160/81 (107) 97 06/24/17 08:00 96.9 56 19 129/65 (86) 96 06/24/17 04:00 98.3 88 17 117/66 (83) 96 06/24/17 00:00 96.8 74 17 148/76 (100) 95 06/23/17 20:00 97.2 81 18 171/77 (108) 96 06/23/17 16:48 I/O 06/23/17 06/23/17 06/23/17 06/24/17 06/24/17 06/24/17 07:00 15:00 23:00 07:00 15:00 23:00 Intake Total 1360 ml 1556 ml 120 ml Output Total 1400 ml 1150 ml Balance -40 ml 406 ml 120 ml Intake Oral 760 ml 240 ml 120 ml IV Total 600 ml 1316 ml Output Urine Total 1400 ml 1150 ml # Bowel Movements 0 Result Diagram: 06/24/17 0613 06/24/17 0436 Imaging Last Impressions Renal Ultrasound 06/23/17 0000 Signed Impressions: Service Date/Time: Friday, June 23, 2017 15:47 - CONCLUSION: 1. Mild hydronephrosis. 2. The bladder is abnormal. It is contracted and therefore not well evaluated with Franks catheter in place however there is a concern for marked bladder wall thickening, possibility of mass is difficult to exclude. 3. Right renal cyst. Luis Garica MD Head CT 06/23/17 0000 Signed Impressions: Service Date/Time: Friday, June 23, 2017 12:32 - CONCLUSION: No bleed or other acute intracranial abnormality. Chronic white matter changes. Alejandro Millan MD Cervical Spine CT 06/23/17 0000 Signed Impressions: Service Date/Time: Friday, June 23, 2017 12:33 - CONCLUSION: 1. Postsurgical features of anterior plate and screw with interbody bone plug at C5-7 without significant bony union. 2. Advanced multilevel degenerative spondylosis of the cervical spine most prominently at C5-7 with posterior osteophytes resulting in severe bony central canal narrowing. 3. Slight increased anterior disc height at C7-T1, likely degenerative and reflecting adjacent level flexion. Flexion/extension views may be performed if there is clinical concern regarding ligamentous instability. 4. No acute fracture. Wiliam Oropeza MD Objective Remarks AAOx3 NAD Clear lungs BL S1S2 Abdomen soft, nt, nd no edema in lower extremities franks catheter in place with hematuria Medications and IVs Current Medications Medications (Trade) Dose Ordered Sig/Oracio Route Start Time Stop Time Status Last Admin Sodium Chloride 1,000 ml @ 75 mls/hr [id number] IV 06/23/17 15:00 06/24/17 17:03 (NS Flush) 2 ml UNSCH PRN IV FLUSH 06/23/17 14:45 (NS Flush) 2 ml BID IV FLUSH 06/23/17 21:00 (Zofran Inj) 4 mg Q6H PRN IVP 06/23/17 14:45 (Narcan Inj) 0.4 mg UNSCH PRN IV PUSH 06/23/17 14:45 (Georgette-Colace) 1 tab BID PO 06/23/17 21:00 06/23/17 21:53 (Milk Of Magnesia Liq) 30 ml Q12H PRN PO 06/23/17 14:45 (Senokot) 17.2 mg Q12H PRN PO 06/23/17 14:45 (Dulcolax Supp) 10 mg DAILY PRN RECTAL 06/23/17 14:45 (Lactulose Liq) 30 ml DAILY PRN PO 06/23/17 14:45 Ceftriaxone Sodium 1000 mg/ Sodium Chloride 100 ml @ 200 mls/hr Q24H IV 06/24/17 14:00 06/24/17 13:35 (Lactinex Pkt) 1 gm TID PO 06/23/17 18:00 06/24/17 17:03 (Heparin Inj) 5,000 units Q12HR SQ 06/23/17 21:00 06/24/17 08:14 (Aspirin Chew) 81 mg DAILY CHEW 06/24/17 09:00 06/24/17 08:12 (Lipitor) 40 mg HS PO 06/23/17 21:00 06/23/17 21:54 (Cymbalta Dr) 30 mg DAILY PO 06/24/17 09:00 06/24/17 08:13 (Proscar) 5 mg DAILY PO 06/24/17 09:00 06/24/17 08:12 (Neurontin) 600 mg HS PO 06/23/17 21:00 06/23/17 21:53 (Isordil) 30 mg HS PO 06/23/17 21:00 06/23/17 21:54 (Protonix) 40 mg DAILY PO 06/24/17 09:00 06/24/17 08:13 (D50w (Vial) Inj) 50 ml UNSCH PRN IV PUSH 06/23/17 15:45 (Glucagon Inj) 1 mg UNSCH PRN OTHER 06/23/17 15:45 (NovoLOG SUPPLEMENTAL SCALE) 1 ACHS SLIDING SCALE SQ 06/23/17 17:00 06/24/17 13:35 (Neurontin) 300 mg TID PO 06/24/17 18:00 06/24/17 16:14 A/P Problem List: (1) UTI (urinary tract infection) ICD Code: N39.0 - Urinary tract infection, site not specified Status: Acute Plan: Concerning for urinary tract infection. Apparently the patient has been treated for times this past March. Continue IV Rocephin. Follow-up urine cultures. (2) Acute renal failure ICD Code: N17.9 - Acute kidney failure, unspecified Status: Acute Plan: Creatinine 2.27 on admission. 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 Continue with Franks catheter and gentle IV fluids. (3) Weakness generalized ICD Code: R53.1 - Weakness Status: Acute Plan: CT neck revealed advanced multilevel degenerative spondylosis of the cervical spine most prominent at C5 to C7 with posterior osteophytes resulting in severe bony central canal narrowing. is very concerned about patient's neck pain and weakness in the upper extremity. Neurosurgery has been consulted - awaiting recommendations. Continue with physical therapy. (4) Bladder outlet obstruction ICD Code: N32.0 - Bladder-neck obstruction Status: Acute Plan: Continue Franks catheter. Urology consulted. Appreciate recommendations. The patient will likely need to be discharge with a Franks catheter. (5) Hematuria ICD Code: R31.9 - Hematuria, unspecified Plan: Continue to monitor, continue Franks catheter. Hold aspirin and heparin. Assessment and Plan DVT prophylaxis: SCDs, hold heparin subcutaneously due to hematuria. Discharge Planning Continue to monitor in the medical floor. The patient still with elevated creatinine and hematuria. Problem Qualifiers (1) UTI (urinary tract infection): Qualified Codes: N39.0 - Urinary tract infection, site not specified; R31.9 - Hematuria, unspecified (2) Acute renal failure: Qualified Codes: N17.9 - Acute kidney failure, unspecified (3) Hematuria: Qualified Codes: R31.0 - Gross hematuria Kvng Ruiz MD Jun 24, 2017 15:54
[2017-06-24 16:00] VITALS: BP 175/78; PULSE 67; RESP 20; TEMP 96.9; O2SAT 97
[2017-06-24] MEDS: GABAPENTIN 300 MG CAP PO SCH ×2 (16:14→20:17)
--- NOTE | 2017-06-24 17:22 | PD.CONS ---
HPI Service Urology Consult Requested By Reason for Consult BPH Primary Care Physician Errol Klein MD Diagnosis: History of Present Illness 82yo male admitted for UTI and fall seen in consultation for bladder wall thickening and urinary retention. Patient reports he follows with Dr. Mac, Urology in [place] for his lower urinary tract symptoms. Patient states he does have a slow weak stream with difficulty in voiding. He was found to have close to 800cc in his bladder once catheter was placed with dark murky looking urine return. Ultrasound also identified bilateral hydronephrosis and CORINNE with Cr over 3, as well as thickened bladder wall. Patient with likely bladder outlet obstruction. Currently doing well, on antibiotics. No fevers. Creatinine has improved since catheter placement Review of Systems ROS Limitations: Clinical Condition Constitutional: DENIES: Fever Endocrine: DENIES: Heat/cold intolerance Ears, nose, mouth, throat: DENIES: Hearing loss Respiratory: DENIES: Cough Cardiovascular: DENIES: Chest pain Gastrointestinal: COMPLAINS OF: Abdominal pain Genitourinary: COMPLAINS OF: Urgency, Dysuria Musculoskeletal: COMPLAINS OF: Muscle aches Integumentary: DENIES: Abnormal pigmentation Hematologic/lymphatic: DENIES: Bruising Psychiatric: DENIES: Anxiety Except as stated in HPI: all other systems reviewed are Neg Past Family Social History Past Medical History Hyperlipidemia, NH, neuropathy, GERD, diabetes, BPH, anemia of unknown origin requiring blood transfusion Past Surgical History Cervicals spine surgery, cardiac stent placement 1998, lumbar surgery, cholecystectomy Reported Medications Reported Meds & Active Scripts Active Reported Aspirin Low Dose (Aspirin) 81 Mg Chew 81 Mg CHEW DAILY Isosorbide Dinitrate 20 Mg Tab 30 Mg PO HS Cymbalta DR (Duloxetine HCl) 30 Mg Capdr 30 Mg PO DAILY Gabapentin 600 Mg Tab 600 Mg PO HS Gabapentin 300 Mg Cap 300 Mg PO DAILY Atorvastatin (Atorvastatin Calcium) 40 Mg Tab 40 Mg PO HS Glimepiride 2 Mg Tab 2 Mg PO DAILY Take with breakfast or first main meal Finasteride 5 Mg Tab 5 Mg PO DAILY Do not crush. Pantoprazole (Pantoprazole Sodium) 40 Mg Tab 40 Mg PO DAILY Allergies: Coded Allergies: No Known Allergies (Unverified , 06/23/17) Active Ordered Medications Current Medications Medications (Trade) Dose Ordered Sig/Oracio Route Start Time Stop Time Status Last Admin Sodium Chloride 1,000 ml @ 75 mls/hr [id number] IV 06/23/17 15:00 06/24/17 17:03 (NS Flush) 2 ml UNSCH PRN IV FLUSH 06/23/17 14:45 (NS Flush) 2 ml BID IV FLUSH 06/23/17 21:00 (Zofran Inj) 4 mg Q6H PRN IVP 06/23/17 14:45 (Narcan Inj) 0.4 mg UNSCH PRN IV PUSH 06/23/17 14:45 (Georgette-Colace) 1 tab BID PO 06/23/17 21:00 06/23/17 21:53 (Milk Of Magnesia Liq) 30 ml Q12H PRN PO 06/23/17 14:45 (Senokot) 17.2 mg Q12H PRN PO 06/23/17 14:45 (Dulcolax Supp) 10 mg DAILY PRN RECTAL 06/23/17 14:45 (Lactulose Liq) 30 ml DAILY PRN PO 06/23/17 14:45 Ceftriaxone Sodium 1000 mg/ Sodium Chloride 100 ml @ 200 mls/hr Q24H IV 06/24/17 14:00 06/24/17 13:35 (Lactinex Pkt) 1 gm TID PO 06/23/17 18:00 06/24/17 17:03 (Heparin Inj) 5,000 units Q12HR SQ 06/23/17 21:00 06/24/17 08:14 (Aspirin Chew) 81 mg DAILY CHEW 06/24/17 09:00 06/24/17 08:12 (Lipitor) 40 mg HS PO 06/23/17 21:00 06/23/17 21:54 (Cymbalta Dr) 30 mg DAILY PO 06/24/17 09:00 06/24/17 08:13 (Proscar) 5 mg DAILY PO 06/24/17 09:00 06/24/17 08:12 (Neurontin) 600 mg HS PO 06/23/17 21:00 06/23/17 21:53 (Isordil) 30 mg HS PO 06/23/17 21:00 06/23/17 21:54 (Protonix) 40 mg DAILY PO 06/24/17 09:00 06/24/17 08:13 (D50w (Vial) Inj) 50 ml UNSCH PRN IV PUSH 06/23/17 15:45 (Glucagon Inj) 1 mg UNSCH PRN OTHER 06/23/17 15:45 (NovoLOG SUPPLEMENTAL SCALE) 1 ACHS SLIDING SCALE SQ 06/23/17 17:00 06/24/17 13:35 (Neurontin) 300 mg TID PO 06/24/17 18:00 06/24/17 16:14 Family History Mother was healthy and lived to be . Father of prostate cancer Social History Denies any alcohol use or illegal drug use. Admits to smoking pipes and cigars Physical Exam Vital Signs Date Time Temp Pulse Resp B/P (MAP) Pulse Ox O2 Delivery O2 Flow Rate FiO2 06/24/17 16:00 96.9 67 20 175/78 (110) 97 06/24/17 12:00 97.4 83 21 160/81 (107) 97 06/24/17 08:00 96.9 56 19 129/65 (86) 96 06/24/17 04:00 98.3 88 17 117/66 (83) 96 06/24/17 00:00 96.8 74 17 148/76 (100) 95 06/23/17 20:00 97.2 81 18 171/77 (108) 96 Physical Exam GENERAL: This is a well-nourished, well-developed patient, in no apparent distress. SKIN: No rashes, ecchymoses or lesions. Cool and dry. HEAD: Atraumatic. Normocephalic. EYES: . Extraocular motions intact. No scleral icterus. No injection or drainage. ENT: Nose without bleeding, purulent drainage. Airway patent. NECK: Trachea midline. CARDIOVASCULAR: Normal pulses RESPIRATORY: Nonlabored, equal chest rise GASTROINTESTINAL: Abdomen soft, non-tender, nondistended. GENITOURINARY: Franks catheter in place, draining dark murky appearing urine MUSCULOSKELETAL: Extremities without clubbing, cyanosis, or edema.. NEUROLOGICAL: Awake and alert. Motor and sensory grossly within normal limits. Normal speech. Lab results reviewed: Yes Laboratory Tests Test 06/24/17 00:13 06/24/17 04:36 06/24/17 06:13 Hemoglobin 9.9 10.5 Hematocrit 29.5 31.6 Blood Urea Nitrogen 36 Creatinine 2.77 Random Glucose 120 Calcium Level 8.2 Sodium Level 144 Potassium Level 4.0 Chloride Level 111 Carbon Dioxide Level 25.4 Anion Gap 8 Estimat Glomerular Filtration Rate 22 Date/Time Source Procedure Growth Status 06/23/17 12:55 Urine Catheterized Urine Urine Culture - Preliminary Gram Negative Vivek Resulted Result Diagram: 06/24/17 0613 06/24/17 0436 Personally reviewed images: Yes Imaging Last Impressions Renal Ultrasound 06/23/17 0000 Signed Impressions: Service Date/Time: Friday, June 23, 2017 15:47 - CONCLUSION: 1. Mild hydronephrosis. 2. The bladder is abnormal. It is contracted and therefore not well evaluated with Franks catheter in place however there is a concern for marked bladder wall thickening, possibility of mass is difficult to exclude. 3. Right renal cyst. Luis Garcia MD Head CT 06/23/17 0000 Signed Impressions: Service Date/Time: Friday, June 23, 2017 12:32 - CONCLUSION: No bleed or other acute intracranial abnormality. Chronic white matter changes. Alejandro Millan MD Cervical Spine CT 06/23/17 0000 Signed Impressions: Service Date/Time: Friday, June 23, 2017 12:33 - CONCLUSION: 1. Postsurgical features of anterior plate and screw with interbody bone plug at C5-7 without significant bony union. 2. Advanced multilevel degenerative spondylosis of the cervical spine most prominently at C5-7 with posterior osteophytes resulting in severe bony central canal narrowing. 3. Slight increased anterior disc height at C7-T1, likely degenerative and reflecting adjacent level flexion. Flexion/extension views may be performed if there is clinical concern regarding ligamentous instability. 4. No acute fracture. Wiliam Oropeza MD Assessment and Plan Problem List: (1) UTI (urinary tract infection) ICD Code: N39.0 - Urinary tract infection, site not specified Status: Acute (2) Acute renal failure ICD Code: N17.9 - Acute kidney failure, unspecified Status: Acute Assessment and Plan -Thickened bladder wall likely due to chronic bladder outlet obstruction -Expect Cr to improve with catheter in place -Maintain franks catheter in place -Continue Antibiotics -Patient may be discharged with catheter in place once medically stable. He is to followup with his Urologist, Dr. Mac in [facility] for catheter removal and voiding trial as well as any further evaluation regarding his lower urinary tract symptoms. -Please call with questions Problem Qualifiers (1) UTI (urinary tract infection): Qualified Codes: N39.0 - Urinary tract infection, site not specified; R31.9 - Hematuria, unspecified (2) Acute renal failure: Qualified Codes: N17.9 - Acute kidney failure, unspecified Cain Correia MD Jun 24, 2017 17:22
[2017-06-24 20:00] VITALS: BP 174/81; PULSE 74; RESP 18; TEMP 97.7; O2SAT 97
[2017-06-24] MEDS: ATORVASTATIN 40 MG TAB PO SCH (20:17)
[2017-06-24] MEDS: ISOSORBIDE DINITRATE 10 MG TAB PO SCH (20:17)
[2017-06-25] VITALS: BP 119/64; PULSE 79; RESP 17; TEMP 98; O2SAT 96
[2017-06-25 04:00] VITALS: BP 135/70; PULSE 85; RESP 17; TEMP 97.9; O2SAT 96
[2017-06-25] MEDS: SODIUM CHLOR 0.9% 1000 ML INJ 1,000 ML IV SCH ×2 (05:41→21:32)
[2017-06-25] MEDS: INSULIN ASPART SUPPLEMENTAL SCALE SQ SCH ×4 (07:39→21:39)
[2017-06-25 08:00] VITALS: BP 159/72; PULSE 77; RESP 17; TEMP 96.7; O2SAT 96
[2017-06-25] MEDS: DULoxetine HCl DR 30 MG CAP PO SCH (08:24)
[2017-06-25] MEDS: DOCUSATE SODIUM 50 MG/SENNA 8.6 MG TAB PO SCH ×2 (08:24→21:00)
[2017-06-25] MEDS: LACTOBACILLUS ACIDOPHILUS 1 GM PACKET PO SCH ×3 (08:24→18:00)
[2017-06-25] MEDS: GABAPENTIN 300 MG CAP PO SCH ×4 (08:24→21:28)
[2017-06-25] MEDS: SODIUM CHLORIDE 0.9% FLUSH 10 ML FLUSH IV FLUSH SCH ×2 (08:24→21:36)
[2017-06-25] MEDS: PANTOPRAZOLE SOD 40 MG DELAYED RELEASE TAB PO SCH (08:24)
[2017-06-25] MEDS: FINASTERIDE 5 MG TAB PO SCH (08:24)
[2017-06-25 12:00] VITALS: BP 162/73; PULSE 71; RESP 17; TEMP 97.7; O2SAT 97
--- NOTE | 2017-06-25 15:38 | RADRPT ---
EXAM DATE/TIME: 06/25/2017 14:54 [facility] COMPARISON: No previous studies available for comparison. INDICATIONS : Pain. Post fall. MEDICAL HISTORY : Hypertension. Diabetes mellitus type 2. Renal insufficiency. SURGICAL HISTORY : Fusion, cervical. Fusion, lumbar. Cholecystectomy. ENCOUNTER: Initial ACUITY: 2 day PAIN SCORE: 2/10 LOCATION: neck TECHNIQUE: Multiplanar, multisequence MRI examination of the cervical spine was performed. FINDINGS: VERTEBRAE: Status post anterior cervical fusion C5-C7 with allograft. ALIGNMENT: Reversal of the normal cervical lordosis. CORD: Normal configuration and signal. POST FOSSA: The cerebellar tonsils are normal in position. C2-C3: The thecal sac has a normal configuration. There is no evidence of disc herniation or spinal canal s tenosis. The neural foramina are patent bilaterally. C3-C4: Moderate uncinate ridging is present causing some flattening of the anterior thecal space with bilate ral foraminal encroachment. C4-C5: Moderate uncinate ridging is present more prominent on the right than the left bilateral foramina enc roachment worse on the right. C5-C6: Level is fused with mild to moderate spinal stenosis with effacement of the anterior thecal sac. C6-C7: Level was used with mild to moderate spinal stenosis with effacement of the anterior thecal sac. C7-T1: The thecal sac has a normal configuration. There is no evidence of disc herniation or spinal canal s tenosis. The neural foramina are patent bilaterally. CONCLUSION: Fusion, C5-C7. Moderate degenerative changes at C3-C4 and C4-C5 with [id number] stenosis. Cisco England MD FACR on June 25, 2017 at 15:30 Board Certified Radiologist. This report was verified electronically.
[2017-06-25] MEDS: cefTRIAXone INJ 1,000 MG in SODIUM CHLORIDE 0.9% INJ 100 ML IV SCH (15:44)
--- NOTE | 2017-06-25 15:58 | HHI.NSPN ---
(Sparkle Dave) Note Status Status: Progress Note (Sparkle Dave) Interval History Interval History This is a 82-year-old male with past medical history of hyperlipidemia, ID, neuropathy, GERD, diabetes, BPH comes in to the emergency room status post fall. at bedside helps with the history and states that he was trying to transfer from bed to his wheelchair when he tried to get up , tried holding his walker and he fell. Pt states that he experienced weakness in his upper extremities which is new. Patient hit the front of his head. He complained to her of neck pain. Patient denied any chest pain, lightheadedness or dizziness. Denies any burning with urination or increase in urinary frequency. However , states that prior to March he was treated on multiple occasions about 4 times for urinary tract infection until they were able to get cultures and he was appropriately treated. It has been about 3 months since he hasn't been on any antibiotics. He denies any prior history of kidney failures or kidney disease. Reports feeling nauseous however he denies any vomiting or fevers or chills. tells me after the fall she noted some fasciculations in his upper extremities and tremors of the upper extremities which is new for him. CT C spine showed stenosis. Neurosurgical consultation was requested 06/25: patient seen this morning during rounds. MRI C spine ordered - pending. no changes in his neuro symptoms. (Sparkle Dave) Labs, Micro, & Vital Signs Results Date Time Temp Pulse Resp B/P (MAP) Pulse Ox O2 Delivery O2 Flow Rate FiO2 06/25/17 12:00 97.7 71 17 162/73 (102) 97 06/25/17 08:00 96.7 77 17 159/72 (101) 96 06/25/17 04:00 97.9 85 17 135/70 (91) 96 06/25/17 00:00 98.0 79 17 119/64 (82) 96 06/24/17 20:00 97.7 74 18 174/81 (112) 97 06/24/17 16:00 96.9 67 20 175/78 (110) 97 Constitutional Vital Signs Date Time Temp Pulse Resp B/P (MAP) Pulse Ox O2 Delivery O2 Flow Rate FiO2 06/25/17 12:00 97.7 71 17 162/73 (102) 97 06/25/17 08:00 96.7 77 17 159/72 (101) 96 06/25/17 04:00 97.9 85 17 135/70 (91) 96 06/25/17 00:00 98.0 79 17 119/64 (82) 96 06/24/17 20:00 97.7 74 18 174/81 (112) 97 06/24/17 16:00 96.9 67 20 175/78 (110) 97 (Sparkle Dave) Review of Systems Musculoskeletal: COMPLAINS OF: Neck pain Neurologic: COMPLAINS OF: Localized weakness, Paresthesias (Sparkle Dave) Physical Exam Mr. Plata is alert, awake and oriented to place and person. Speech is fluent. Cranial nerve examination demonstrates the pupils to be equal, round, and reactive to light. Extra-ocular movements are intact. Facial motor are normal and symmetrical. Gross decreased hearing. Sternocleidomastoid and trapezius muscles have normal and symmetrical strength. Other cranial nerves are intact. Cervical spine has a decreased range of motion in anterior flexion, extension, lateral bending, and rotation without pain. 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 In the lower extremities, strength is 4+ to 5-/5 in iliopsoas , quadriceps, hamstrings, plantar flexion, dorsiflexion. Sensory examination is intact to light touch in both the upper and lower extremities, symmetrically. Deep tendon reflexes are trace to 1+ biceps, triceps, and brachioradialis in the upper extremities. In the lower extremities, the patellar and Achilles are absent, bilaterally. There is a bilateral Babinski response. Yasmeen sign is negative. There is no clonus. Cerebellar examination is intact to buczxr-[id number] test. (Sparkle Dave) Mr Plata is alert, awake and oriented to time, place and person. Speech is fluent. Higher cognitive functions are normal. Cranial nerve examination demonstrates the pupils to be equal, round, and reactive to light. Extra-ocular movements are intact. Facial motor and sensory function are normal and symmetrical. Gross hearing is intact, bilaterally. The uvula is midline and elevates symmetrically with the soft palate. Sternocleidomastoid and trapezius muscles have normal and symmetrical strength. Other cranial nerves are intact. Neck is soft and supple. Cervical spine has a decreased range of motion in anterior flexion, extension, lateral bending, and rotation without pain. There is no tenderness to palpation to the spinous processes or paraspinal muscles. Muscle testing reveals normal bulk and tone overall without rigidity, spasticity , fasciculations, or atrophy. 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 . In the lower extremities, strength is 4+/5 in both iliopsoas, quadriceps, hamstrings, plantar flexion, dorsiflexion, and extensor hallicus longus. Sensory examination is decreased in a C6 and C7 dermatome Deep tendon reflexes are 2+ and symmetrical in the biceps, triceps, and brachioradialis, bilaterally, in the upper extremities. In the lower extremities , the patellar and Achilles are 2+, bilaterally. There is a bilateral Babinsky , no clonus Cerebellar examination is intact to [id number]-[id number] test, rapid rhythmic alternating motion. There is no dysmetria, dysdiadochokinesia, truncal ataxia, or tremor. (Gunnar Gambino MD) Medications Current Medications Current Medications Medications (Trade) Dose Ordered Sig/Oracio Route PRN Reason Start Time Stop Time Status Last Admin Dose Admin Sodium Chloride 1,000 ml @ 75 mls/hr [id number] IV 06/23/17 15:00 06/25/17 05:41 Sodium Chloride (NS Flush) 2 ml UNSCH PRN IV FLUSH FLUSH AFTER USING IV ACCESS 06/23/17 14:45 Sodium Chloride (NS Flush) 2 ml BID IV FLUSH 06/23/17 21:00 06/24/17 20:17 Ondansetron HCl (Zofran Inj) 4 mg Q6H PRN IVP NAUSEA OR VOMITING 06/23/17 14:45 Naloxone HCl (Narcan Inj) 0.4 mg UNSCH PRN IV PUSH SEE LABEL COMMENTS 06/23/17 14:45 Senna/Docusate Sodium (Georgette-Colace) 1 tab BID PO 06/23/17 21:00 06/25/17 08:24 Magnesium Hydroxide (Milk Of Magnesia Liq) 30 ml Q12H PRN PO Mild constipation 06/23/17 14:45 Sennosides (Senokot) 17.2 mg Q12H PRN PO Moderate constipation 06/23/17 14:45 Bisacodyl (Dulcolax Supp) 10 mg DAILY PRN RECTAL SEVERE CONSITIPATION 06/23/17 14:45 Lactulose (Lactulose Liq) 30 ml DAILY PRN PO SEVERE CONSITIPATION 06/23/17 14:45 Ceftriaxone Sodium 1000 mg/ Sodium Chloride 100 ml @ 200 mls/hr Q24H IV 06/24/17 14:00 06/25/17 15:44 Lactobacillus Acidophilus (Lactinex Pkt) 1 gm TID PO 06/23/17 18:00 06/25/17 13:00 Heparin Sodium (Porcine) (Heparin Inj) 5,000 units Q12HR SQ 06/23/17 21:00 Future Hold 06/24/17 08:14 Aspirin (Aspirin Chew) 81 mg DAILY CHEW 06/24/17 09:00 Future Hold 06/24/17 08:12 Atorvastatin Calcium (Lipitor) 40 mg HS PO 06/23/17 21:00 06/24/17 20:17 Duloxetine HCl (Cymbalta Dr) 30 mg DAILY PO 06/24/17 09:00 06/25/17 08:24 Finasteride (Proscar) 5 mg DAILY PO 06/24/17 09:00 06/25/17 08:24 Gabapentin (Neurontin) 600 mg HS PO 06/23/17 21:00 06/24/17 20:17 Isosorbide Dinitrate (Isordil) 30 mg HS PO 06/23/17 21:00 06/24/17 20:17 Pantoprazole Sodium (Protonix) 40 mg DAILY PO 06/24/17 09:00 06/25/17 08:24 Dextrose (D50w (Vial) Inj) 50 ml UNSCH PRN IV PUSH HYPOGLYCEMIA-SEE COMMENTS 06/23/17 15:45 Glucagon (Glucagon Inj) 1 mg UNSCH PRN OTHER HYPOGLYCEMIA-SEE COMMENTS 06/23/17 15:45 Insulin Aspart (NovoLOG SUPPLEMENTAL SCALE) 1 ACHS SLIDING SCALE SQ 06/23/17 17:00 06/24/17 20:50 Gabapentin (Neurontin) 300 mg TID PO 06/24/17 18:00 06/25/17 13:00 (Sparkle Dave) Medical Decision Making MDM Remarks 82 y/o male s/p fall, acute upper extremity weakness CT C spine without acute fractures, awaiting MRI C spine (Sparkle Dave) Plan Plan Remarks awaiting MRI C spine, further recs to follow cont medical management PT, OT (Sparkle Dave) Attending Statement Cervical myelopathy. I again discussed with him the alternatives of treatment including a surgical decompression as a last resort. We have discussed the details including the [id number] details of the surgical procedure, its indications, alternatives, risks, and potential complications. Risks and potential complications include, but are not limited to, infection, blood loss, CSF leak, partial or complete loss of sight in one or both eyes, paresis, paralysis, permanent pain or difficulty swallowing, loss of bowel or bladder function, complications from anesthesia, blood clot, stroke, myocardial infarction, or even . Continue Pulmonary.aggressive pulmonary toilette, nasotracheal suction, and breathing treatments with nebulizers. BPH. Consult urology Nutrition. Continue Oral diet Renal. monitor closely urine output, BUN and creatinine Endocrine. Monitor serial Acu checks and SSI as needed in detail ID monitor for signs of infection Continue Protonix for stress ulcer prophylaxis Continue Ashu hose and SCD's for DVT prophylaxis. The exam, history, and the medical decision-making described in the above note were completed with the assistance of the mid-level provider. I reviewed and agree with the findings presented. I attest that I had a [id number] encounter with the patient on the same day, and personally performed and documented my assessment and findings in the medical record. (Gunnar Gambino MD) Sparkle Dave Jun 25, 2017 15:58 Gunnar Gambino MD Jun 26, 2017 16:16
[2017-06-25 16:00] VITALS: BP 175/82; PULSE 66; RESP 17; TEMP 96.1; O2SAT 97
[2017-06-25] MEDS ORDERED: ASP: Documented ESBL, MDR A baumannii or P. aeruginosa PRN (16:15)
[2017-06-25] MEDS ORDERED: MISCELLANEOUS PHARMACY INFORMATION XX PRN (16:15)
[2017-06-25] MEDS ORDERED: ASP: ID consult, note reason in consult order PRN (16:15)
--- NOTE | 2017-06-25 16:34 | HHI.PR ---
Subjective Remarks patient still has neck pain denies fevers or chills denies cp/sob Objective Vitals Vital Signs Date Time Temp Pulse Resp B/P (MAP) Pulse Ox O2 Delivery O2 Flow Rate FiO2 06/25/17 12:00 97.7 71 17 162/73 (102) 97 06/25/17 08:00 96.7 77 17 159/72 (101) 96 06/25/17 04:00 97.9 85 17 135/70 (91) 96 06/25/17 00:00 98.0 79 17 119/64 (82) 96 06/24/17 20:00 97.7 74 18 174/81 (112) 97 I/O 06/24/17 06/24/17 06/24/17 06/25/17 06/25/17 06/25/17 07:00 15:00 23:00 07:00 15:00 23:00 Intake Total 1556 ml 120 ml 1587 ml 1240 ml Output Total 1150 ml 800 ml 2000 ml Balance 406 ml 120 ml 787 ml -760 ml Intake Oral 240 ml 120 ml 900 ml 240 ml IV Total 1316 ml 687 ml 1000 ml Output Urine Total 1150 ml 800 ml 2000 ml # Bowel Movements 4 Result Diagram: 06/24/17 0613 06/24/17 0436 Imaging Last Impressions Cervical Spine MRI 06/25/17 0000 Signed Impressions: Service Date/Time: Sunday, June 25, 2017 14:54 - CONCLUSION: Fusion, C5- C7. Moderate degenerative changes at C3-C4 and C4-C5 with acwd-dg-hycyfyfx stenosis. Cisco England MD FACR Renal Ultrasound 06/23/17 0000 Signed Impressions: Service Date/Time: Friday, June 23, 2017 15:47 - CONCLUSION: 1. Mild hydronephrosis. 2. The bladder is abnormal. It is contracted and therefore not well evaluated with Franks catheter in place however there is a concern for marked bladder wall thickening, possibility of mass is difficult to exclude. 3. Right renal cyst. Luis Garcia MD Head CT 06/23/17 0000 Signed Impressions: Service Date/Time: Friday, June 23, 2017 12:32 - CONCLUSION: No bleed or other acute intracranial abnormality. Chronic white matter changes. Alejandro Millan MD Cervical Spine CT 06/23/17 0000 Signed Impressions: Service Date/Time: Friday, June 23, 2017 12:33 - CONCLUSION: 1. Postsurgical features of anterior plate and screw with interbody bone plug at C5-7 without significant bony union. 2. Advanced multilevel degenerative spondylosis of the cervical spine most prominently at C5-7 with posterior osteophytes resulting in severe bony central canal narrowing. 3. Slight increased anterior disc height at C7-T1, likely degenerative and reflecting adjacent level flexion. Flexion/extension views may be performed if there is clinical concern regarding ligamentous instability. 4. No acute fracture. Wiliam Oropeza MD Objective Remarks AAOx3 NAD Clear lungs BL S1S2 Abdomen soft, nt, nd no edema in lower extremities franks catheter in place with hematuria Neck is soft and supple. Cervical spine has a decreased range of motion in anterior flexion, extension, lateral bending, and rotation without pain. There is no tenderness to palpation to the spinous processes or paraspinal muscles. Medications and IVs Current Medications Medications (Trade) Dose Ordered Sig/Oracio Route Start Time Stop Time Status Last Admin Sodium Chloride 1,000 ml @ 75 mls/hr [id number] IV 06/23/17 15:00 06/25/17 05:41 (NS Flush) 2 ml UNSCH PRN IV FLUSH 06/23/17 14:45 (NS Flush) 2 ml BID IV FLUSH 06/23/17 21:00 06/24/17 20:17 (Zofran Inj) 4 mg Q6H PRN IVP 06/23/17 14:45 (Narcan Inj) 0.4 mg UNSCH PRN IV PUSH 06/23/17 14:45 (Georgette-Colace) 1 tab BID PO 06/23/17 21:00 06/25/17 08:24 (Milk Of Magnesia Liq) 30 ml Q12H PRN PO 06/23/17 14:45 (Senokot) 17.2 mg Q12H PRN PO 06/23/17 14:45 (Dulcolax Supp) 10 mg DAILY PRN RECTAL 06/23/17 14:45 (Lactulose Liq) 30 ml DAILY PRN PO 06/23/17 14:45 (Lactinex Pkt) 1 gm TID PO 06/23/17 18:00 06/25/17 13:00 (Heparin Inj) 5,000 units Q12HR SQ 06/23/17 21:00 Future Hold 06/24/17 08:14 (Aspirin Chew) 81 mg DAILY CHEW 06/24/17 09:00 Future Hold 06/24/17 08:12 (Lipitor) 40 mg HS PO 06/23/17 21:00 06/24/17 20:17 ([address]) 30 mg DAILY PO 06/24/17 09:00 06/25/17 08:24 (Proscar) 5 mg DAILY PO 06/24/17 09:00 06/25/17 08:24 (Neurontin) 600 mg HS PO 06/23/17 21:00 06/24/17 20:17 (Isordil) 30 mg HS PO 06/23/17 21:00 06/24/17 20:17 (Protonix) 40 mg DAILY PO 06/24/17 09:00 06/25/17 08:24 (D50w (Vial) Inj) 50 ml UNSCH PRN IV PUSH 06/23/17 15:45 (Glucagon Inj) 1 mg UNSCH PRN OTHER 06/23/17 15:45 (NovoLOG SUPPLEMENTAL SCALE) 1 ACHS SLIDING SCALE SQ 06/23/17 17:00 06/24/17 20:50 (Neurontin) 300 mg TID PO 06/24/17 18:00 06/25/17 13:00 (ASP Crit: Doc ESBL, MDR A baumannii or P aer) 1 UNSCH X1 PRN XX 06/25/17 16:15 06/26/17 16:14 UNV (ASP Crit: Infectious disease consult) 1 UNSCH X1 PRN XX 06/25/17 16:15 06/26/17 16:14 UNV ([facility] Information) 1 UNSCH X1 PRN XX 06/25/17 16:15 06/26/17 16:14 UNV Ertapenem 1000 mg/ Sodium Chloride 100 ml @ 200 mls/hr Q24H IV 06/25/17 16:15 UNV A/P Problem List: (1) UTI (urinary tract infection) ICD Code: N39.0 - Urinary tract infection, site not specified Status: Acute Plan: Concerning for urinary tract infection. Apparently the patient has been treated for times this past March. 06/25 the patient has been started on IV Rocephin, however urine cultures growing ESBL Escherichia coli, I will DC Rocephin and start the patient on Invanz and consult infectious disease. (2) Acute renal failure ICD Code: N17.9 - Acute kidney failure, unspecified Status: Acute Plan: Creatinine 3.27 on admission trending down. 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 Continue with Franks catheter and gentle IV fluids. 06/25 labs ordered today and pending. (3) Weakness generalized ICD Code: R53.1 - Weakness Status: Acute Plan: CT neck revealed advanced multilevel degenerative spondylosis of the cervical spine most prominent at C5 to C7 with posterior osteophytes resulting in severe bony central canal narrowing. is very concerned about patient's neck pain and weakness in the upper extremity. Neurosurgery has been consulted - recommended cervical spine MRI which shows fusion at C5 C7 with moderate degenerative changes at C3-C4 and C4-C5 mild to moderate stenosis. Will await recommendations. (4) Bladder outlet obstruction ICD Code: N32.0 - Bladder-neck obstruction Status: Acute Plan: Continue Franks catheter. Urology consulted. Appreciate recommendations. The patient will likely need to be discharge with a Franks catheter. (5) Hematuria ICD Code: R31.9 - Hematuria, unspecified Plan: Continue to monitor, continue Franks catheter. Hold aspirin and heparin. 06/25 hematuria improving. Continue to hold aspirin and heparin. Assessment and Plan DVT prophylaxis: SCDs, hold heparin subcutaneously due to hematuria. Discharge Planning Continue to monitor in the medical floor. The patient still with elevated creatinine and hematuria. Problem Qualifiers (1) UTI (urinary tract infection): Qualified Codes: N39.0 - Urinary tract infection, site not specified; R31.9 - Hematuria, unspecified (2) Acute renal failure: Qualified Codes: N17.9 - Acute kidney failure, unspecified (3) Hematuria: Qualified Codes: R31.0 - Gross hematuria Kvng Ruiz MD Jun 25, 2017 16:34
[2017-06-25 17:40] LABS: AUTOMATED NEUTROPHIL # 3.6 TH/MM3 (1.8-7.7); BASOPHIL % 0.5 % (0.0-2.0); EOSINOPHIL # 0.3 TH/MM3 (0-0.4); EOSINOPHIL % 5.2 % (0.0-4.0); HEMATOCRIT 31.4 % (39.0-51.0); HEMO FLAGS DIFF FINAL; LYMPH % 20.3 % (9.0-44.0); LYMPHOCYTE # 1.1 TH/MM3 (1.0-4.8); MEAN CELL VOLUME 89.4 FL (80.0-100.0); MEAN CORPUSCULAR HEMOGLOBIN 30.2 PG (27.0-34.0); MEAN CORPUSCULAR HGB CONC 33.7 % (32.0-36.0); MONO % 10.3 % (0.0-8.0); NEUT % 63.7 % (16.0-70.0); PLATELET COUNT 160 TH/MM3 (150-450); RED BLOOD COUNT 3.52 MIL/MM3 (4.50-5.90); WHITE BLOOD COUNT 5.6 TH/MM3 (4.0-11.0)
[2017-06-25 18:04] LABS: ANION GAP 8 MEQ/L (5-15); AST (GOT) 22 U/L (15-37); BICARBONATE 25.2 MEQ/L (21.0-32.0); BLOOD UREA NITROGEN 32 MG/DL (7-18); CHLORIDE 108 MEQ/L (98-107); GLOMERULAR FILTRATION RATE 27 ML/MIN (>89); POTASSIUM 4.1 MEQ/L (3.5-5.1); SODIUM (NA) 141 MEQ/L (136-145)
[2017-06-25 18:06] LABS: ALT (GPT) 26 U/L (12-78)
[2017-06-25 18:09] LABS: ALKALINE PHOSPHATASE 71 U/L (45-117); TOTAL BILIRUBIN ADULT 0.3 MG/DL (0.2-1.0)
[2017-06-25 20:49] VITALS: BP 164/77; PULSE 76; RESP 18; TEMP 96.9; O2SAT 94
[2017-06-25] MEDS: ATORVASTATIN 40 MG TAB PO SCH (21:28)
[2017-06-25] MEDS: ISOSORBIDE DINITRATE 10 MG TAB PO SCH (21:28)
[2017-06-25] MEDS: ERTAPENEM INJ 500 MG in SODIUM CHLORIDE 0.9% INJ 100 ML IV SCH (21:32)
[2017-06-26 00:43] VITALS: BP 125/68; PULSE 76; RESP 18; TEMP 98.6; O2SAT 97
[2017-06-26 07:43] LABS: HEMATOCRIT 28.1 % (39.0-51.0); MEAN CELL VOLUME 88.4 FL (80.0-100.0); MEAN CORPUSCULAR HEMOGLOBIN 29.7 PG (27.0-34.0); MEAN CORPUSCULAR HGB CONC 33.6 % (32.0-36.0); PLATELET COUNT 158 TH/MM3 (150-450); RED BLOOD COUNT 3.18 MIL/MM3 (4.50-5.90); RED CELL DISTRIBUTION WIDTH 17.8 % (11.6-17.2); REVIEW FLAG FINAL
[2017-06-26 07:48] LABS: BASOPHIL % 0.8 % (0.0-2.0); EOSINOPHIL # 0.3 TH/MM3 (0-0.4); EOSINOPHIL % 5.4 % (0.0-4.0); HEMATOCRIT 28.1 % (39.0-51.0); HEMO FLAGS DIFF FINAL; LYMPH % 22.2 % (9.0-44.0); LYMPHOCYTE # 1.1 TH/MM3 (1.0-4.8); MEAN CELL VOLUME 88.6 FL (80.0-100.0); MEAN CORPUSCULAR HEMOGLOBIN 30.2 PG (27.0-34.0); MEAN CORPUSCULAR HGB CONC 34.1 % (32.0-36.0); MONO % 10.1 % (0.0-8.0); NEUT % 61.5 % (16.0-70.0); PLATELET COUNT 147 TH/MM3 (150-450); RED BLOOD COUNT 3.17 MIL/MM3 (4.50-5.90); RED CELL DISTRIBUTION WIDTH 17.9 % (11.6-17.2); WHITE BLOOD COUNT 4.9 TH/MM3 (4.0-11.0)
[2017-06-26 07:54] VITALS: BP 154/72; PULSE 66; RESP 20; TEMP 97.1; O2SAT 100
[2017-06-26] MEDS: INSULIN ASPART SUPPLEMENTAL SCALE SQ SCH ×4 (08:00→20:29)
[2017-06-26 08:10] VITALS: BP 176/79; PULSE 68; RESP 18; TEMP 97.3; O2SAT 97
[2017-06-26 08:14] LABS: ALT (GPT) 26 U/L (12-78); ANION GAP 9 MEQ/L (5-15); AST (GOT) 23 U/L (15-37); BICARBONATE 25.5 MEQ/L (21.0-32.0); BLOOD UREA NITROGEN 29 MG/DL (7-18); CHLORIDE 110 MEQ/L (98-107); GLOMERULAR FILTRATION RATE 32 ML/MIN (>89); POTASSIUM 3.7 MEQ/L (3.5-5.1); SODIUM (NA) 144 MEQ/L (136-145)
[2017-06-26] MEDS: GABAPENTIN 300 MG CAP PO SCH ×4 (08:15→20:22)
[2017-06-26] MEDS: LACTOBACILLUS ACIDOPHILUS 1 GM PACKET PO SCH ×3 (08:15→17:03)
[2017-06-26] MEDS: SODIUM CHLORIDE 0.9% FLUSH 10 ML FLUSH IV FLUSH SCH ×2 (08:15→20:23)
[2017-06-26] MEDS: PANTOPRAZOLE SOD 40 MG DELAYED RELEASE TAB PO SCH (08:15)
[2017-06-26] MEDS: DULoxetine HCl DR 30 MG CAP PO SCH (08:15)
[2017-06-26] MEDS: FINASTERIDE 5 MG TAB PO SCH (08:15)
[2017-06-26] MEDS: DOCUSATE SODIUM 50 MG/SENNA 8.6 MG TAB PO SCH ×2 (08:15→20:23)
[2017-06-26 08:17] LABS: ALKALINE PHOSPHATASE 65 U/L (45-117); TOTAL BILIRUBIN ADULT 0.3 MG/DL (0.2-1.0)
[2017-06-26 11:15] VITALS: BP_SYST 152; BP_SYST 172; BP_DIAS 70; BP_DIAS 81; PULSE 66; RESP 20; TEMP 95.6; O2SAT 98
[2017-06-26] MEDS: SODIUM CHLOR 0.9% 1000 ML INJ 1,000 ML IV SCH ×2 (12:00→20:31)
--- NOTE | 2017-06-26 14:49 | HHI.NSPN ---
(Sparkle Dave) Note Status Status: Progress Note (Sparkle Dave) Interval History Interval History This is a 82-year-old male with past medical history of hyperlipidemia, NE, neuropathy, GERD, diabetes, BPH comes in to the emergency room status post fall. at bedside helps with the history and states that he was trying to transfer from bed to his wheelchair when he tried to get up , tried holding his walker and he fell. Pt states that he experienced weakness in his upper extremities which is new. Patient hit the front of his head. He complained to her of neck pain. Patient denied any chest pain, lightheadedness or dizziness. Denies any burning with urination or increase in urinary frequency. However , states that prior to March he was treated on multiple occasions about 4 times for urinary tract infection until they were able to get cultures and he was appropriately treated. It has been about 3 months since he hasn't been on any antibiotics. He denies any prior history of kidney failures or kidney disease. Reports feeling nauseous however he denies any vomiting or fevers or chills. tells me after the fall she noted some fasciculations in his upper extremities and tremors of the upper extremities which is new for him. CT C spine showed stenosis. Neurosurgical consultation was requested 06/25: patient seen this morning during rounds. MRI C spine ordered - pending. no changes in his neuro symptoms. 06/26: dw more in detail. patient had ACDF July [address] Monsalve, orthopedic surgeon. Patient did well for a while following surgery but then was becoming progressively weak in his legs again, and has had falls at home as his legs give out. this most recent fall caused more weakness in his extremities. (Sparkle Dave) Labs, Micro, & Vital Signs Results Date Time Temp Pulse Resp B/P (MAP) Pulse Ox O2 Delivery O2 Flow Rate FiO2 06/26/17 11:15 95.6 66 20 172/81 (111) 98 152/70 (97) 06/26/17 08:10 97.3 68 18 176/79 (111) 97 06/26/17 07:54 97.1 66 20 154/72 (99) 100 06/26/17 00:43 98.6 76 18 125/68 (87) 97 06/25/17 20:49 96.9 76 18 164/77 (106) 94 06/25/17 16:00 96.1 66 17 175/82 (113) 97 06/27/17 07:00 Intake Total 1120 ml Balance 1120 ml Constitutional Vital Signs Date Time Temp Pulse Resp B/P (MAP) Pulse Ox O2 Delivery O2 Flow Rate FiO2 06/26/17 11:15 95.6 66 20 172/81 (111) 98 152/70 (97) 06/26/17 08:10 97.3 68 18 176/79 (111) 97 06/26/17 07:54 97.1 66 20 154/72 (99) 100 06/26/17 00:43 98.6 76 18 125/68 (87) 97 06/25/17 20:49 96.9 76 18 164/77 (106) 94 06/25/17 16:00 96.1 66 17 175/82 (113) 97 06/27/17 07:00 Intake Total 1120 ml Balance 1120 ml (Sparkle Dave) Review of Systems Constitutional: DENIES: Fever, Chills Neurologic: COMPLAINS OF: Abnormal gait, Localized weakness (Sparkle Dave ) Physical Exam Mr. Plata is alert, awake and oriented to place and person. Speech is fluent. Cranial nerve examination demonstrates the pupils to be equal, round, and reactive to light. Extra-ocular movements are intact. Facial motor are normal and symmetrical. Gross decreased hearing. Sternocleidomastoid and trapezius muscles have normal and symmetrical strength. Other cranial nerves are intact. Cervical spine has a decreased range of motion in anterior flexion, extension, lateral bending, and rotation without pain. Muscle strength is 5-/5 deltoid, 4+both biceps, right triceps, 4-/5 left triceps and support dba. In the lower extremities, strength is 4+ to 5-/5 in iliopsoas , quadriceps, hamstrings, plantar flexion, dorsiflexion. Deep tendon reflexes are trace to 1+ biceps, triceps, and brachioradialis in the upper extremities. In the lower extremities, the patellar and Achilles are absent, bilaterally. There is a bilateral Babinski response. Yasmeen sign is negative. There is no clonus. (Sparkle Dave) The patient is alert, awake and oriented to time, place and person. Speech is fluent. Higher cognitive functions are normal. Cranial nerve examination demonstrates the pupils to be equal, round, and reactive to light. Extra-ocular movements are intact. Facial motor and sensory function are normal and symmetrical. Gross hearing is intact, bilaterally. The uvula is midline and elevates symmetrically with the soft palate. Sternocleidomastoid and trapezius muscles have normal and symmetrical strength. Other cranial nerves are intact. Neck is soft and supple. Cervical spine has a decreased range of motion in anterior flexion, extension, lateral bending, and rotation without pain. There is no tenderness to palpation to the spinous processes or paraspinal muscles. Muscle testing reveals normal bulk and tone overall without rigidity, spasticity , fasciculations, or atrophy. Muscle strength is 4/5 in his deltod, biceps 4/5, triceps, brachioradialis 4 on the left, 4+ on the right, wrist extension and support dba 3/5 on the right, 4/5 on the left. . In the lower extremities, strength is 4+/5 in both iliopsoas, quadriceps, hamstrings, plantar flexion, dorsiflexion, and extensor hallicus longus. Sensory examination is decreased in a C6 and C7 dermatome Deep tendon reflexes are 2+ and symmetrical in the biceps, triceps, and brachioradialis, bilaterally, in the upper extremities. In the lower extremities , the patellar and Achilles are 2+, bilaterally. There is a bilateral Babinsky , no clonus Cerebellar examination is intact to luqyfw-[id number] test, rapid rhythmic alternating motion. There is no dysmetria, dysdiadochokinesia, truncal ataxia, or tremor. (Gunnar Gambino MD) Medications Current Medications Current Medications Medications (Trade) Dose Ordered Sig/Oracio Route PRN Reason Start Time Stop Time Status Last Admin Dose Admin Sodium Chloride 1,000 ml @ 75 mls/hr [id number] IV 06/23/17 15:00 06/26/17 12:00 Sodium Chloride (NS Flush) 2 ml UNSCH PRN IV FLUSH FLUSH AFTER USING IV ACCESS 06/23/17 14:45 Sodium Chloride (NS Flush) 2 ml BID IV FLUSH 06/23/17 21:00 06/25/17 21:36 Ondansetron HCl (Zofran Inj) 4 mg Q6H PRN IVP NAUSEA OR VOMITING 06/23/17 14:45 Naloxone HCl (Narcan Inj) 0.4 mg UNSCH PRN IV PUSH SEE LABEL COMMENTS 06/23/17 14:45 Senna/Docusate Sodium (Georgette-Colace) 1 tab BID PO 06/23/17 21:00 06/26/17 08:15 Magnesium Hydroxide (Milk Of Magnesia Liq) 30 ml Q12H PRN PO Mild constipation 06/23/17 14:45 Sennosides (Senokot) 17.2 mg Q12H PRN PO Moderate constipation 06/23/17 14:45 Bisacodyl (Dulcolax Supp) 10 mg DAILY PRN RECTAL SEVERE CONSITIPATION 06/23/17 14:45 Lactulose (Lactulose Liq) 30 ml DAILY PRN PO SEVERE CONSITIPATION 06/23/17 14:45 Lactobacillus Acidophilus (Lactinex Pkt) 1 gm TID PO 06/23/17 18:00 06/26/17 12:21 Heparin Sodium (Porcine) (Heparin Inj) 5,000 units Q12HR SQ 06/23/17 21:00 Future Hold 06/24/17 08:14 Aspirin (Aspirin Chew) 81 mg DAILY CHEW 06/24/17 09:00 Future Hold 06/24/17 08:12 Atorvastatin Calcium (Lipitor) 40 mg HS PO 06/23/17 21:00 06/25/17 21:28 Duloxetine HCl (Cymbalta Dr) 30 mg DAILY PO 06/24/17 09:00 06/26/17 08:15 Finasteride (Proscar) 5 mg DAILY PO 06/24/17 09:00 06/26/17 08:15 Gabapentin (Neurontin) 600 mg HS PO 06/23/17 21:00 06/25/17 21:28 Isosorbide Dinitrate (Isordil) 30 mg HS PO 06/23/17 21:00 06/25/17 21:28 Pantoprazole Sodium (Protonix) 40 mg DAILY PO 06/24/17 09:00 06/26/17 08:15 Dextrose (D50w (Vial) Inj) 50 ml UNSCH PRN IV PUSH HYPOGLYCEMIA-SEE COMMENTS 06/23/17 15:45 Glucagon (Glucagon Inj) 1 mg UNSCH PRN OTHER HYPOGLYCEMIA-SEE COMMENTS 06/23/17 15:45 Insulin Aspart (NovoLOG SUPPLEMENTAL SCALE) 1 ACHS SLIDING SCALE SQ 06/23/17 17:00 06/26/17 12:00 Gabapentin (Neurontin) 300 mg TID PO 06/24/17 18:00 06/26/17 12:21 Miscellaneous Medication (ASP Crit: Doc ESBL, MDR A baumannii or P aer) 1 UNSCH X1 PRN .XX PHARMACY DOCUMENTATION 06/25/17 16:15 06/26/17 16:14 Miscellaneous Medication (ASP Crit: Infectious disease consult) 1 UNSCH X1 PRN .XX PHARMACY DOCUMENTATION 06/25/17 16:15 06/26/17 16:14 Miscellaneous Medication ([facility]) 1 UNSCH X1 PRN XX PHARMACY DOCUMENTATION 06/25/17 16:15 06/26/17 16:14 Ertapenem 500 mg/ Sodium Chloride 100 ml @ 200 mls/hr Q24H IV 06/25/17 20:00 06/25/17 21:32 Chlorhexidine Gluconate (Hibiclens 4% Top Soln) 1 applic HS TOP 06/26/17 21:00 06/28/17 21:01 (Sparkle Dave) Medical Decision Making MDM Remarks 82 y/o male s/p fall, acute upper extremity weakness CT C spine without acute fractures MRI Cervical spine with severe canal stenosis, cord compression at C5-6, C6-7 (Sparkle Dave) Plan Plan Remarks MRI C spine reviewed by Dr. Gambino, he has severe stenosis with cord compression at C5-6, C6-7 recommending spinal decompression with C5-6, C6-7 posterior cervical laminectomy to OR tomorrow for surgery, NPO tonight after midnight Dr. Gambino discussed with and detail the [id number] details of the surgical procedure, its indications, alternatives, risks, and potential complications. Risks and potential complications include, but are not limited to, infection, blood loss, CSF leak, partial or complete loss of sight in one or both eyes, paresis, paralysis, permanent pain or difficulty swallowing, loss of bowel or bladder function, complications from anesthesia, blood clot, stroke , myocardial infarction, or even . (Sparkle Dave) Attending Statement Cervical myelopathy. I again discussed with him the alternatives of treatment including a surgical decompression as a last resort. We have discussed the details including the [id number] details of the surgical procedure, its indications, alternatives, risks, and potential complications. Risks and potential complications include, but are not limited to, infection, blood loss, CSF leak, partial or complete loss of sight in one or both eyes, paresis, paralysis, permanent pain or difficulty swallowing, loss of bowel or bladder function, complications from anesthesia, blood clot, stroke, myocardial infarction, or even . Continue Pulmonary.aggressive pulmonary toilette, nasotracheal suction, and breathing treatments with nebulizers. BPH. Consult urology Nutrition. Continue Oral diet Renal. monitor closely urine output, BUN and creatinine Endocrine. Monitor serial Acu checks and SSI as needed in detail ID monitor for signs of infection Continue Protonix for stress ulcer prophylaxis Continue Ashu hose and SCD's for DVT prophylaxis. The exam, history, and the medical decision-making described in the above note were completed with the assistance of the mid-level provider. I reviewed and agree with the findings presented. I attest that I had a [id number] encounter with the patient on the same day, and personally performed and documented my assessment and findings in the medical record. (Gunnar Gambino MD) Sparkle Dave Jun 26, 2017 14:49 Gunnar Gambino MD Jun 26, 2017 16:18
--- NOTE | 2017-06-26 15:26 | HHI.PR ---
Subjective Remarks Denies cp/sob. Hmeaturia is clearing. afebrile Objective Vitals Vital Signs Date Time Temp Pulse Resp B/P (MAP) Pulse Ox O2 Delivery O2 Flow Rate FiO2 06/26/17 11:15 95.6 66 20 172/81 (111) 98 152/70 (97) 06/26/17 08:10 97.3 68 18 176/79 (111) 97 06/26/17 07:54 97.1 66 20 154/72 (99) 100 06/26/17 00:43 98.6 76 18 125/68 (87) 97 06/25/17 20:49 96.9 76 18 164/77 (106) 94 06/25/17 16:00 96.1 66 17 175/82 (113) 97 I/O 06/25/17 06/25/17 06/25/17 06/26/17 06/26/17 06/26/17 07:00 15:00 23:00 07:00 15:00 23:00 Intake Total 1240 ml 1480 ml 580 ml 1120 ml Output Total 2000 ml 1750 ml 2000 ml Balance -760 ml -270 ml -1420 ml 1120 ml Intake Oral 240 ml 480 ml 480 ml 120 ml IV Total 1000 ml 1000 ml 100 ml 1000 ml Output Urine Total 2000 ml 1750 ml 2000 ml # Bowel Movements 1 Result Diagram: 06/26/17 0647 06/26/17 0647 Imaging Last Impressions Cervical Spine MRI 06/25/17 0000 Signed Impressions: Service Date/Time: Sunday, June 25, 2017 14:54 - CONCLUSION: Fusion, C5- C7. Moderate degenerative changes at C3-C4 and C4-C5 with [id number]-od-siqjrwvw stenosis. Cisco England MD FACR Renal Ultrasound 06/23/17 0000 Signed Impressions: Service Date/Time: Friday, June 23, 2017 15:47 - CONCLUSION: 1. Mild hydronephrosis. 2. The bladder is abnormal. It is contracted and therefore not well evaluated with Franks catheter in place however there is a concern for marked bladder wall thickening, possibility of mass is difficult to exclude. 3. Right renal cyst. Luis Garcia MD Head CT 06/23/17 0000 Signed Impressions: Service Date/Time: Friday, June 23, 2017 12:32 - CONCLUSION: No bleed or other acute intracranial abnormality. Chronic white matter changes. Alejandro Millan MD Cervical Spine CT 06/23/17 0000 Signed Impressions: Service Date/Time: Friday, June 23, 2017 12:33 - CONCLUSION: 1. Postsurgical features of anterior plate and screw with interbody bone plug at C5-7 without significant bony union. 2. Advanced multilevel degenerative spondylosis of the cervical spine most prominently at C5-7 with posterior osteophytes resulting in severe bony central canal narrowing. 3. Slight increased anterior disc height at C7-T1, likely degenerative and reflecting adjacent level flexion. Flexion/extension views may be performed if there is clinical concern regarding ligamentous instability. 4. No acute fracture. Wiliam Oropeza MD Objective Remarks AAOx3 NAD Clear lungs BL S1S2 Abdomen soft, nt, nd no edema in lower extremities franks catheter in place with hematuria Neck is soft and supple. Cervical spine has a decreased range of motion in anterior flexion, extension, lateral bending, and rotation without pain. There is no tenderness to palpation to the spinous processes or paraspinal muscles. Medications and IVs Current Medications Medications (Trade) Dose Ordered Sig/Oracio Route Start Time Stop Time Status Last Admin Sodium Chloride 1,000 ml @ 75 mls/hr [id number] IV 06/23/17 15:00 06/26/17 12:00 (NS Flush) 2 ml UNSCH PRN IV FLUSH 06/23/17 14:45 (NS Flush) 2 ml BID IV FLUSH 06/23/17 21:00 06/26/17 20:23 (Zofran Inj) 4 mg Q6H PRN IVP 06/23/17 14:45 (Narcan Inj) 0.4 mg UNSCH PRN IV PUSH 06/23/17 14:45 (Georgette-Colace) 1 tab BID PO 06/23/17 21:00 06/26/17 08:15 (Milk Of Magnesia Liq) 30 ml Q12H PRN PO 06/23/17 14:45 (Senokot) 17.2 mg Q12H PRN PO 06/23/17 14:45 (Dulcolax Supp) 10 mg DAILY PRN RECTAL 06/23/17 14:45 (Lactulose Liq) 30 ml DAILY PRN PO 06/23/17 14:45 (Lactinex Pkt) 1 gm TID PO 06/23/17 18:00 06/26/17 17:03 (Heparin Inj) 5,000 units Q12HR SQ 06/23/17 21:00 Future Hold 06/24/17 08:14 (Aspirin Chew) 81 mg DAILY CHEW 06/24/17 09:00 Future Hold 06/24/17 08:12 (Lipitor) 40 mg HS PO 06/23/17 21:00 06/26/17 20:22 (Cymbalta Dr) 30 mg DAILY PO 06/24/17 09:00 06/26/17 08:15 (Proscar) 5 mg DAILY PO 06/24/17 09:00 06/26/17 08:15 (Neurontin) 600 mg HS PO 06/23/17 21:00 06/26/17 20:22 (Isordil) 30 mg HS PO 06/23/17 21:00 06/26/17 20:22 (Protonix) 40 mg DAILY PO 06/24/17 09:00 06/26/17 08:15 (D50w (Vial) Inj) 50 ml UNSCH PRN IV PUSH 06/23/17 15:45 (Glucagon Inj) 1 mg UNSCH PRN OTHER 06/23/17 15:45 (NovoLOG SUPPLEMENTAL SCALE) 1 ACHS SLIDING SCALE SQ 06/23/17 17:00 06/26/17 12:00 (Neurontin) 300 mg TID PO 06/24/17 18:00 06/26/17 17:04 Ertapenem 500 mg/ Sodium Chloride 100 ml @ 200 mls/hr Q24H IV 06/25/17 20:00 06/26/17 20:23 (Hibiclens 4% Top Soln) 1 applic HS TOP 06/26/17 21:00 06/28/17 21:01 06/26/17 20:31 A/P Problem List: (1) UTI (urinary tract infection) ICD Code: N39.0 - Urinary tract infection, site not specified Status: Acute Plan: Concerning for urinary tract infection. Apparently the patient has been treated for times this past March. 06/25 the patient has been started on IV Rocephin, however urine cultures growing ESBL Escherichia coli, I will DC Rocephin and start the patient on Invanz and consult infectious disease. 11/7 Continu Invanz,. ID consult. (2) Acute renal failure ICD Code: N17.9 - Acute kidney failure, unspecified Status: Acute Plan: Creatinine 3.27 on admission trending down. 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 Continue with Franks catheter and gentle IV fluids. 06/26 Creatinine trending down at 2.02 today. monitor bun/creatinine, strict I's and O's. (3) Weakness generalized ICD Code: R53.1 - Weakness Status: Acute Plan: CT neck revealed advanced multilevel degenerative spondylosis of the cervical spine most prominent at C5 to C7 with posterior osteophytes resulting in severe bony central canal narrowing. is very concerned about patient's neck pain and weakness in the upper extremity. Neurosurgery has been consulted - recommended cervical spine MRI which shows fusion at C5 C7 with moderate degenerative changes at C3-C4 and C4-C5 mild to moderate stenosis. Will await recommendations. 06/26 MRI C spine reviewed by Dr. Gambino, he has severe stenosis with cord compression at C5-6, C6-7 recommending spinal decompression with C5-6, C6-7 posterior cervical laminectomy to OR tomorrow for surgery, NPO tonight after midnight (4) Bladder outlet obstruction ICD Code: N32.0 - Bladder-neck obstruction Status: Acute Plan: Continue Franks catheter. Urology consulted. Appreciate recommendations. The patient will likely need to be discharge with a Franks catheter. (5) Hematuria ICD Code: R31.9 - Hematuria, unspecified Plan: Continue to monitor, continue Franks catheter. Hold aspirin and heparin. 06/25 hematuria improving. Continue to hold aspirin and heparin. 06/26 Hematuria resolving. continue franks catheter. Assessment and Plan DVT prophylaxis: SCDs, hold heparin subcutaneously due to hematuria. Discharge Planning Continue to monitor in the medical floor. The patient still with elevated creatinine and hematuria. Problem Qualifiers (1) UTI (urinary tract infection): Qualified Codes: N39.0 - Urinary tract infection, site not specified; R31.9 - Hematuria, unspecified (2) Acute renal failure: Qualified Codes: N17.9 - Acute kidney failure, unspecified (3) Hematuria: Qualified Codes: R31.0 - Gross hematuria Kvng Ruiz MD Jun 26, 2017 15:26
[2017-06-26 16:00] VITALS: BP 160/80; PULSE 66; RESP 20; TEMP 97.7; O2SAT 96
--- NOTE | 2017-06-26 16:39 | MB ---
cc: WALLY MONTES DE OCA MD DATE OF CONSULTATION 06/26/[address] Franco REASON FOR CONSULTATION ESBL E-coli UTI. HISTORY OF PRESENT ILLNESS This is an 82-year-old white male who presented to emergency department post falling. The patient has been undergoing workup. He incidentally was found to have urinary tract infection due to ESBL E-coli and that is why this consultation is requested. The patient is afebrile. White blood cell count is normal. He has a Medrano catheter in place which has adama-colored concentrated urine. He had been started on ertapenem yesterday evening. The patient is currently up in the bedside chair. He states that he feels okay. He is being evaluated by neurosurgery for a neurosurgical procedure which is planned possibly for tomorrow. The patient's tells me that he has had multiple antibiotic courses for UTI over the past year. She does not recall cultures being taken before March when he had a UTI and he was treated with IV antibiotics. The patient's hospitalizations have been in [facility]. PAST MEDICAL HISTORY 1. Neuropathy. 2. Diabetes mellitus. 3. Benign prostatic hypertrophy. 4. Gastroesophageal reflux disease. 5. Hyperlipidemia. 6. History of cervical spine surgery. 7. Cardiac stent placement. 8. Cholecystectomy. 9. Lumbar surgery. ALLERGIES NO KNOWN DRUG ALLERGIES. MEDICATIONS 1. Ertapenem. 2. Neurontin. 3. Cymbalta. 4. Proscar. 5. Protonix. 6. Georgette-Colace. 7. Lipitor. 8. Isordil. 9. Lactinex. 10. Insulin. SOCIAL HISTORY The patient is . No tobacco, no alcohol or illicit drugs. FAMILY HISTORY Noncontributory. REVIEW OF SYSTEMS Negative 10-point review. PHYSICAL EXAMINATION GENERAL: This is a pleasant, well-developed male in no acute distress. He is awake and alert and oriented. VITAL SIGNS: Temperature 95.6, BP 172/81, respirations 20, heart rate 66. HEENT: Head is atraumatic. Extraocular movements grossly intact. Pupils reactive to light without icterus. Oropharynx moist mucosa. NECK: Supple without adenopathy. LUNGS: Clear breath sounds. HEART: Regular S1-S2. No murmurs, rubs or gallops. ABDOMEN: Bowel sounds present, soft, nontender. RECTAL: Not performed. GENITOURINARY: The patient has a Medrano catheter which has adama-colored concentrated urine. EXTREMITIES: No clubbing or cyanosis or edema. SKIN: No rash. NEUROLOGIC: No gross focal findings. LABORATORY DATA WBC 5.0, platelets 158, hemoglobin 9.4. Creatinine 2.02, BUN 29, estimated GFR of 32, sodium 144. IMPRESSION 1. UTI due to ESBL E-coli. 2. Acute kidney failure. RECOMMENDATIONS 1. Continue ertapenem. 2. Monitor repeat urine culture in a couple of days to check for clearance. Thank you this consultation. The patient's progress will be monitored. Wally Montes De Oca MD FD/SINGH /4:04 PM /4:30 PM MTDJunior
[2017-06-26 20:00] VITALS: BP 177/79; PULSE 66; RESP 18; TEMP 96.9; O2SAT 96
[2017-06-26] MEDS: ISOSORBIDE DINITRATE 10 MG TAB PO SCH (20:22)
[2017-06-26] MEDS: ATORVASTATIN 40 MG TAB PO SCH (20:22)
[2017-06-26] MEDS: ERTAPENEM INJ 500 MG in SODIUM CHLORIDE 0.9% INJ 100 ML IV SCH (20:23)
[2017-06-26] MEDS: CHLORHEXIDINE GLUCONATE 4% SOLN 120 ML BTL TOP SCH (20:31)
[2017-06-27] VITALS: BP_SYST 118; BP_SYST 126; BP_DIAS 58; BP_DIAS 77; PULSE 71; PULSE 82; RESP 18; TEMP 97.1; TEMP 98; O2SAT 94; O2SAT 96
[2017-06-27] MEDS: SODIUM CHLOR 0.9% 1000 ML INJ 1,000 ML IV SCH (01:51)
[2017-06-27 07:45] LABS: HEMATOCRIT 30.5 % (39.0-51.0); MEAN CELL VOLUME 89.1 FL (80.0-100.0); MEAN CORPUSCULAR HEMOGLOBIN 29.5 PG (27.0-34.0); MEAN CORPUSCULAR HGB CONC 33.1 % (32.0-36.0); PLATELET COUNT 190 TH/MM3 (150-450); RED BLOOD COUNT 3.43 MIL/MM3 (4.50-5.90); RED CELL DISTRIBUTION WIDTH 17.8 % (11.6-17.2); REVIEW FLAG FINAL; WHITE BLOOD COUNT 5.6 TH/MM3 (4.0-11.0)
[2017-06-27 08:00] VITALS: BP 175/82; PULSE 64; RESP 18; TEMP 95.5; O2SAT 94
[2017-06-27] MEDS: INSULIN ASPART SUPPLEMENTAL SCALE SQ SCH ×4 (08:00→21:12)
[2017-06-27 08:09] LABS: BICARBONATE 26.6 MEQ/L (21.0-32.0); POTASSIUM 3.8 MEQ/L (3.5-5.1)
[2017-06-27] MEDS: GABAPENTIN 300 MG CAP PO SCH ×4 (08:41→21:11)
[2017-06-27] MEDS: PANTOPRAZOLE SOD 40 MG DELAYED RELEASE TAB PO SCH (08:41)
[2017-06-27] MEDS: DULoxetine HCl DR 30 MG CAP PO SCH (08:41)
[2017-06-27] MEDS: DOCUSATE SODIUM 50 MG/SENNA 8.6 MG TAB PO SCH (08:41)
[2017-06-27] MEDS: FINASTERIDE 5 MG TAB PO SCH (08:41)
[2017-06-27] MEDS: SODIUM CHLORIDE 0.9% FLUSH 10 ML FLUSH IV FLUSH SCH (08:44)
[2017-06-27] MEDS: LACTOBACILLUS ACIDOPHILUS 1 GM PACKET PO SCH ×3 (08:44→18:00)
--- NOTE | 2017-06-27 09:27 | EKG ---
Date Performed: 06/27/2017 Time Performed: 08:16:35 PTAGE: 82 years EKG: Sinus rhythm INFERIOR MYOCARDIAL INFARCTION , PROBABLY OLD MODERATE T-WAVE ABNORMALITY, CONSIDER ANTERIOR ISCHEMI A ABNORMAL ECG NO PREVIOUS TRACING DOCTOR: Truong Cisneros Interpretating Date/Time 06/27/2017 09:26:08
--- NOTE | 2017-06-27 11:20 | HHI.PR ---
Subjective Remarks Follow-up acute renal failure, UTI, weakness. Patient being taken for neurosurgical procedure now. Denies pain. Still feels weak and describes paresthesias in his extremities. No chest pain or dyspnea. Objective Vitals Vital Signs Date Time Temp Pulse Resp B/P (MAP) Pulse Ox O2 Delivery O2 Flow Rate FiO2 06/27/17 08:00 95.5 64 18 175/82 (113) 94 06/27/17 00:00 97.1 71 18 118/58 (78) 96 06/26/17 20:00 96.9 66 18 177/79 (111) 96 06/26/17 16:00 97.7 66 20 160/80 (106) 96 06/26/17 11:15 95.6 66 20 172/81 (111) 98 152/70 (97) I/O 06/26/17 06/26/17 06/26/17 06/27/17 06/27/17 06/27/17 07:00 15:00 23:00 07:00 15:00 23:00 Intake Total 580 ml 1120 ml 850 ml 1240 ml Output Total 2000 ml 1200 ml 1750 ml Balance -1420 ml 1120 ml -350 ml -510 ml Intake Oral 480 ml 120 ml 750 ml 240 ml IV Total 100 ml 1000 ml 100 ml 1000 ml Output Urine Total 2000 ml 1200 ml 1750 ml # Bowel Movements 0 0 Result Diagram: 06/27/1771306/27/17713 Imaging Last Impressions Cervical Spine MRI 06/25/17 0000 Signed Impressions: Service Date/Time: Sunday, June 25, 2017 14:54 - CONCLUSION: Fusion, C5- C7. Moderate degenerative changes at C3-C4 and C4-C5 with [id number] stenosis. Cisco England MD FACR Renal Ultrasound 06/23/17 0000 Signed Impressions: Service Date/Time: Friday, June 23, 2017 15:47 - CONCLUSION: 1. Mild hydronephrosis. 2. The bladder is abnormal. It is contracted and therefore not well evaluated with Medrano catheter in place however there is a concern for marked bladder wall thickening, possibility of mass is difficult to exclude. 3. Right renal cyst. Luis Garcia MD Head CT 06/23/17 0000 Signed Impressions: Service Date/Time: Friday, June 23, 2017 12:32 - CONCLUSION: No bleed or other acute intracranial abnormality. Chronic white matter changes. Alejandro Millan MD Cervical Spine CT 06/23/17 0000 Signed Impressions: Service Date/Time: Friday, June 23, 2017 12:33 - CONCLUSION: 1. Postsurgical features of anterior plate and screw with interbody bone plug at C5-7 without significant bony union. 2. Advanced multilevel degenerative spondylosis of the cervical spine most prominently at C5-7 with posterior osteophytes resulting in severe bony central canal narrowing. 3. Slight increased anterior disc height at C7-T1, likely degenerative and reflecting adjacent level flexion. Flexion/extension views may be performed if there is clinical concern regarding ligamentous instability. 4. No acute fracture. Wiliam Oropeza MD Objective Remarks General: Elderly male in no acute distress. Heart: Regular rate and rhythm. No murmur. Lungs: Clear to auscultation bilaterally. No wheezes, rales, or rhonchi. Breathing is nonlabored. Abdomen: Soft, nontender, nondistended. Extremities: No lower extremity edema. Psych: Alert and oriented. Procedures None Urinary Catheter: Yes Assessment to: Continue Medrano insert reason: Obstruction/Retention Vascular Central Line Catheter: No A/P Problem List: (1) UTI (urinary tract infection) ICD Code: N39.0 - Urinary tract infection, site not specified Status: Acute (2) Acute renal failure ICD Code: N17.9 - Acute kidney failure, unspecified Status: Acute (3) Weakness generalized ICD Code: R53.1 - Weakness Status: Acute (4) Bladder outlet obstruction ICD Code: N32.0 - Bladder-neck obstruction Status: Acute (5) Hematuria ICD Code: R31.9 - Hematuria, unspecified Assessment and Plan 1. UTI: Urine culture growing ESBL Escherichia coli. Appreciate infectious disease recommendations. Continue Invanz. 2. Acute renal failure: Creatinine stabilizing around 2. Monitor labs. Strict intake/output. 3. Generalized weakness: Patient also describing paresthesias in his extremities. Appreciate neurosurgery recommendations. Going for spinal decompression, posterior cervical laminectomy at C5-C6 and C6-C7. 4. Hematuria: Medrano catheter in place. Hematuria is improving. Aspirin on hold. Appreciate urology recommendations. Plan is to discharge the patient with Medrano catheter in place. 5. DVT prophylaxis: SCDs. Heparin on hold secondary to hematuria, surgical intervention. Problem Qualifiers (1) UTI (urinary tract infection): Qualified Codes: N39.0 - Urinary tract infection, site not specified; R31.9 - Hematuria, unspecified (2) Acute renal failure: Qualified Codes: N17.9 - Acute kidney failure, unspecified (3) Hematuria: Qualified Codes: R31.0 - Gross hematuria Kishore Cuba MD Jun 27, 2017 11:20
[2017-06-27] MEDS ORDERED: POVIDONE IODINE 5% (ANTISEPSIS KIT) 4 APPLICATIONS EACH NARE PRN (11:45)
[2017-06-27] MEDS ORDERED: LACTATED RINGER'S 1000 ML IV PRN (11:45)
[2017-06-27] MEDS ORDERED: SODIUM CHLORID 0.9% 500 ML IV PRN (11:45)
[2017-06-27] MEDS ORDERED: CHLORHEXIDINE GLUCONATE 2 % 1 PACK (2 CLOTHS) TOPICAL PRN (11:45)
[2017-06-27] MEDS ORDERED: INSULIN HUMAN REGULAR 1,000 UNITS/10 ML VIAL SQ PRN (11:45)
[2017-06-27] MEDS ORDERED: METOPROLOL TARTRATE 25 MG TAB PO PRN (11:45)
[2017-06-27] MEDS ORDERED: ceFAZolin 2 GM PREMIX 50 ML ONE (12:21)
[2017-06-27] MEDS ORDERED: THROMBIN (TOPICAL) 5,000 UNIT VIAL ONE (12:21)
[2017-06-27] MEDS ORDERED: GELFOAM SIZE 100 ONE (12:21)
[2017-06-27] MEDS ORDERED: MICROFIBRILLAR COLLAGEN HEMOSTAT 70 X 35 MM BANDAGE ONE (12:21)
[2017-06-27] MEDS ORDERED: GENTAMICIN SULFATE 80 MG/2 ML VIAL ONE (12:21)
[2017-06-27] MEDS ORDERED: MORPHINE SULFATE 4 MG/ML INJ IV PUSH PRN ×2 (13:45)
[2017-06-27] MEDS ORDERED: SODIUM CHLORIDE 0.9% FLUSH 5 ML FLUSH IVF PRN (13:45)
[2017-06-27] MEDS ORDERED: ACETAMINOPHEN 325 MG TAB PO PRN (13:45)
[2017-06-27] MEDS ORDERED: BUPIVACAINE/EPINEPHRINE 0.5% PF 30 ML VIAL ONE (14:56)
[2017-06-27] MEDS ORDERED: MORPHINE SULFATE 2 MG/ML INJ IV PUSH PRN (15:45)
--- NOTE | 2017-06-27 15:57 | RADRPT ---
EXAM DATE/TIME: 06/27/2017 14:00 [facility] COMPARISON: No previous studies available for comparison. INDICATIONS : Level Localization posterior laminectomy C5 to C7. MEDICAL HISTORY : Cardiovascular disease. Hypertension. SURGICAL HISTORY : Fusion, cervical. ENCOUNTER: Subsequent ACUITY: 3 days PAIN SCORE: Non-responsive. LOCATION: Cervical spine. FINDINGS: Metallic probe is directed at C5. CONCLUSION: Localization as above. Cisco England MD FACR on June 27, 2017 at 15:55 Board Certified Radiologist. This report was verified electronically.
[2017-06-27] MEDS ORDERED: DO NOT ADM ANY ANTICOAGULANT DRUGS PRN (15:58)
[2017-06-27] MEDS ORDERED: NS + KCL 20 MEQ INJ 1,000 ML IV SCH (16:00)
--- NOTE | 2017-06-27 16:38 | PD.OP ---
Operative Report Date of Surgery: Jun 27, 2017 Preoperative Diagnosis: Cervical stenosis with myelopathy Postoperative Diagnosis: Cervical stenosis with myelopathy Procedure: C5-7 posterior cervical laminectomy and foraminotomy Anesthesia: general Surgeon: Gunnar Gambino Supervisor Underwriting Clerks(s): Mercy Bui Operation and Findings: INDICATIONS FOR THE PROCEDURE The patient is a 80 year-old male who presented with intractable neck pain and clinical evidence of cervical myelopathy due to cord compression. He had a prior anterior cervical fusion performed by an orthopedic surgeon, but had extensive residual osteophites causing spinal cord compression. He failed nonoperative treatment and remained severely myelopathic. A cervical laminectomy was indicated.. The [id number] details of the procedure, indications, alternatives, risks and potential complications were fully discussed with the patient. The patient fully understood. All The questions were answered. No guarantees were given. The patient voiced requesting the procedure and provided informed consents. The patient was offered the alternative of delaying the procedure and continuing with nonsurgical management. DETAILS OF THE SURGICAL PROCEDURE After the induction of general anesthesia, endotracheal intubation was performed. Electrodes were placed for electrophysiological monitoring of te somatosensorial evoked potentials, EMG, and motor evoked potentials prior to the intubation and kept thorough the procedure. A Medrano catheter, bilateral TIARA hose, and sequential compression devices were placed and kept throughout the procedure. The patient was carefully log-rolled to the prone position on a 3080 table. All pressure points were carefully padded with eggcrate mattress. The patient was positioned in a prone position with rigid fixation of the head using the Huddleston headholder. All pressure points were carefully padded with eggcrate mattress. The eyes were tapped shut after ointment was applied by the anesthesiologist to prevent corneal abrasion. A Suze hugger was placed over the expossed lower body to maintain control of the core body temperature. The electrophysiological team placed the needles and electrodes in their proper location and baseline SSEP's and motor evoked potentials were registered. The posterior cervical region was prepped and draped in the usual sterile fashion. A localizing X-ray was performed with the C-arm and the fracture was localized. A medial incision was outlined from the spinous process of C5 down to C7. Surgical Approach A midline skin incision was made with a #10 blade. Dissection was carried out through the posterior cervical fascia with a Bovie. The spinous process of C5, C6, and C7 were exposed and a subperiosteal dissection was performed over the spinous process, lamina lateral masses of C5 down to C7. Bilateral self retaining retractors were placed on incision. Surgical decompression The operative microscope was draped in the usual sterile fashion and brought to the field. The rest of the surgical procedure was performed using microdissection technique with the exception of the closure. Under the operative microscope, the laminas at C5 down to C7 and the spinous processes were carefully drilled using the TPS drill with a 5m cutting jed. The ligamentum Flavum was carefully removed with a 2 and 3mm thin foot plate Kerrison and a bilateral foraminotomy was done. The incision was irrigated with basic ortho solution Completion of the Procedure The incision was thoroughly irrigated with several liters of antibiotic solution. A seven mm Andrew-Aleman drain was left on the epidural space and was then externalized through a separate stab incision. The incision was then closed in layers. 0 Vicryl with interrupted sutures were used to close the thoracolumbar fascia. The superficial fascia was closed with 0 Vicryl sutures. Three-0 Vicryl was used to close the subcutaneous tissue. The skin was closed with 4-0 running subcuticular Vicryl. Dermabond was applied to the skin. The drain was secured 3-0 nylon. At the end of the procedure the sponges, needles, and instrument counts were all correct. Estimated blood loss was 50-60 cc's. No complications occurred. The patient received prophylactic antibiotics. The patient was then extubated and transferred to the recovery room in stable condition. The entire procedure was performed using electrophysiological monitor of the electromyogram, evoked potential and sphincters. No intraoperative changes were detected. Gunnar Gambino MD Jun 27, 2017 16:38
[2017-06-27] MEDS ORDERED: *morphine SULFATE 8 MG/ML PERIprocedure ONLY ONE (18:48)
[2017-06-27 20:00] VITALS: BP 129/61; PULSE 72; RESP 18; TEMP 97.2; O2SAT 96
[2017-06-27] MEDS: CHLORHEXIDINE GLUCONATE 4% SOLN 120 ML BTL TOP SCH (20:20)
[2017-06-27] MEDS: ceFAZolin 2 GM PREMIX 50 ML IV SCH (21:11)
[2017-06-27] MEDS: DOCUSATE SODIUM 100 MG CAP PO SCH (21:11)
[2017-06-27] MEDS: ATORVASTATIN 40 MG TAB PO SCH (21:11)
[2017-06-27] MEDS: ACETAMINOPHEN/HYDROcodone 325 MG/10 MG TAB PO PRN (21:12)
[2017-06-27] MEDS: SODIUM CHLORIDE 0.9% FLUSH 5 ML FLUSH IVF SCH (21:21)
[2017-06-27] MEDS: ISOSORBIDE DINITRATE 10 MG TAB PO SCH (23:42)
[2017-06-28] VITALS (10 sets, daily range): BP systolic 86–166; BP diastolic 51–80; PULSE 18–86; RESP 18–20; TEMP 95.3–98; O2SAT 93–100
[2017-06-28] MEDS: RESP: ALBUTEROL 2.5 MG/3 ML NEB (SCH) INH ×6 (01:26→20:39)
[2017-06-28] MEDS: ACETAMINOPHEN/HYDROcodone 325 MG/10 MG TAB PO PRN ×2 (01:49→14:39)
[2017-06-28] MEDS: ERTAPENEM INJ 500 MG in SODIUM CHLORIDE 0.9% INJ 100 ML IV SCH ×2 (01:49→21:22)
[2017-06-28] MEDS: SODIUM CHLOR 0.9% 1000 ML INJ 1,000 ML IV SCH ×2 (01:50→14:38)
[2017-06-28] MEDS: ceFAZolin 2 GM PREMIX 50 ML IV SCH ×2 (06:13→14:37)
[2017-06-28 08:04] LABS: AUTOMATED NEUTROPHIL # 6.7 TH/MM3 (1.8-7.7); BASOPHIL % 0.3 % (0.0-2.0); EOSINOPHIL % 0.3 % (0.0-4.0); HEMATOCRIT 26.8 % (39.0-51.0); HEMO FLAGS DIFF FINAL; LYMPH % 6.2 % (9.0-44.0); LYMPHOCYTE # 0.5 TH/MM3 (1.0-4.8); MEAN CELL VOLUME 89.1 FL (80.0-100.0); MEAN CORPUSCULAR HEMOGLOBIN 29.9 PG (27.0-34.0); MEAN CORPUSCULAR HGB CONC 33.6 % (32.0-36.0); MONO % 4.5 % (0.0-8.0); NEUT % 88.7 % (16.0-70.0); PLATELET COUNT 194 TH/MM3 (150-450); RED BLOOD COUNT 3.01 MIL/MM3 (4.50-5.90); RED CELL DISTRIBUTION WIDTH 18.2 % (11.6-17.2); WHITE BLOOD COUNT 7.6 TH/MM3 (4.0-11.0)
[2017-06-28 08:26] LABS: BICARBONATE 24.4 MEQ/L (21.0-32.0); POTASSIUM 4.7 MEQ/L (3.5-5.1)
[2017-06-28] MEDS: DOCUSATE SODIUM 100 MG CAP PO SCH ×2 (08:51→21:22)
[2017-06-28] MEDS: GABAPENTIN 300 MG CAP PO SCH ×4 (08:51→21:22)
[2017-06-28] MEDS: PANTOPRAZOLE SOD 40 MG DELAYED RELEASE TAB PO SCH (08:51)
[2017-06-28] MEDS: FINASTERIDE 5 MG TAB PO SCH (08:51)
[2017-06-28] MEDS: DULoxetine HCl DR 30 MG CAP PO SCH (08:51)
[2017-06-28] MEDS: INSULIN ASPART SUPPLEMENTAL SCALE SQ SCH ×4 (08:52→19:52)
[2017-06-28] MEDS: SODIUM CHLORIDE 0.9% FLUSH 5 ML FLUSH IVF SCH ×2 (08:52→21:00)
[2017-06-28] MEDS: LACTOBACILLUS ACIDOPHILUS 1 GM PACKET PO SCH ×3 (08:52→17:40)
--- NOTE | 2017-06-28 10:53 | HHI.PR ---
Subjective Remarks f/u for back surgery and UTI Patient stated that he has some discomfort in his neck but pain is controlled. Seems to be a poor story and. Denied any upper or lower extremity weakness. Denies any paresthesia. He has no complaints at all. Objective Vitals Vital Signs Date Time Temp Pulse Resp B/P (MAP) Pulse Ox O2 Delivery O2 Flow Rate FiO2 06/28/17 08:39 95.8 64 18 104/56 (72) 97 06/28/17 08:06 98 Nasal Cannula 2.00 06/28/17 04:36 99 Nasal Cannula 2.00 06/28/17 04:00 97.4 73 18 112/56 (74) 99 06/28/17 01:30 97.4 18 18 98/52 (67) 99 06/28/17 01:30 93 Nasal Cannula 2.00 06/27/17 20:06 98.0 76 16 139/68 (91) 97 Nasal Cannula 2 06/27/17 20:00 97.2 72 18 129/61 (83) 96 06/27/17 18:15 70 12 142/68 (92) 99 06/27/17 18:00 97.3 65 12 129/61 (83) 99 06/27/17 17:45 66 14 133/65 (87) 98 06/27/17 17:30 65 13 138/65 (89) 99 06/27/17 17:15 66 13 137/63 (87) 97 06/27/17 17:00 70 14 138/64 (88) 94 06/27/17 16:45 69 12 140/66 (90) 95 Room Air 06/27/17 16:30 69 15 126/58 (80) 97 06/27/17 16:15 70 14 123/58 (79) 100 Simple Mask 6 06/27/17 16:01 95.9 68 11 130/60 (83) 100 Simple Mask 6 Manual Cuff/Auscultation I/O 06/27/17 06/27/17 06/27/17 06/28/17 06/28/17 06/28/17 07:00 15:00 23:00 07:00 15:00 23:00 Intake Total 1240 ml 2250 ml 2091 ml Output Total 1750 ml 560 ml 50 ml 800 ml Balance -510 ml 1690 ml 2041 ml -800 ml Intake Oral 240 ml 250 ml 120 ml IV Total 1000 ml 1971 ml Other 2000 ml Output Urine Total 1750 ml 500 ml 800 ml Drainage Total 60 ml 50 ml # Bowel Movements 0 Result Diagram: 06/28/1774206/28/17742 Objective Remarks GENERAL: in NAD NECK: in neck collar with MILAGRO drain in place serosanguineous. CARDIOVASCULAR: Regular rate and rhythm without murmurs, gallops, or rubs. RESPIRATORY: Breath sounds equal bilaterally. No accessory muscle use. GASTROINTESTINAL: Abdomen soft, non-tender, nondistended. MUSCULOSKELETAL: 5 out of 5 upper lung history strength. Sensations intact. Procedures None Medications and IVs Current Medications IV Flush (NS Flush) 2 ml UNSCH PRN IV FLUSH FLUSH AFTER USING IV ACCESS; Start 06/23/17 at 12:30; Stop 06/23/17 at 14:59; Status DC Sodium Chloride 1,000 ml @ 999 mls/hr BOLUS ONCE IV Last administered on 06/23 14:08; Start 06/23/17 at 13:30; Stop 06/23/17 at 14:30; Status DC Ceftriaxone Sodium 1000 mg/ Sodium Chloride 100 ml @ 200 mls/hr ONCE ONCE IV Last administered on 06/23/17 14:08; Start 06/23/17 at 13:30; Stop 06/23/17 at 13:59; Status DC Gabapentin (Neurontin) 100 mg ONCE ONCE PO Last administered on 06/23/17 15: 14; Start 06/23/17 at 14:15; Stop 06/23/17 at 14:16; Status DC Sodium Chloride 1,000 ml @ 75 mls/hr [id number] IV Last administered on 01:50; Start 06/23/17 at 15:00 Sodium Chloride (NS Flush) 2 ml UNSCH PRN IV FLUSH FLUSH AFTER USING IV ACCESS Last administered on 06/27/17 11:15; Start 06/23/17 at 14:45; Stop 06/27/17 at 15:32; Status DC Sodium Chloride (NS Flush) 2 ml BID IV FLUSH Last administered on 06/27/17 08: 44; Start 06/23/17 at 21:00; Stop 06/27/17 at 15:32; Status DC Ondansetron HCl (Zofran Inj) 4 mg Q6H PRN IVP NAUSEA OR VOMITING; Start at 14:45 Naloxone HCl (Narcan Inj) 0.4 mg UNSCH PRN IV PUSH SEE LABEL COMMENTS; Start 06/23/17 at 14:45 Senna/Docusate Sodium (Georgette-Colace) 1 tab BID PO Last administered on 08:41; Start 06/23/17 at 21:00; Stop 06/27/17 at 15:30; Status DC Magnesium Hydroxide (Milk Of Magnesia Liq) 30 ml Q12H PRN PO Mild constipation ; Start 06/23/17 at 14:45 Sennosides (Senokot) 17.2 mg Q12H PRN PO Moderate constipation; Start 06/23/17 at 14:45 Bisacodyl (Dulcolax Supp) 10 mg DAILY PRN RECTAL SEVERE CONSITIPATION; Start 06/23/17 at 14:45 Lactulose (Lactulose Liq) 30 ml DAILY PRN PO SEVERE CONSITIPATION; Start at 14:45 Ceftriaxone Sodium 1000 mg/ Sodium Chloride 100 ml @ 200 mls/hr Q24H IV Last administered on 06/25/17 15:44; Start 06/24/17 at 14:00; Stop 06/25/17 at 16:19 ; Status DC Lactobacillus Acidophilus (Lactinex Pkt) 1 gm TID PO Last administered on 08:52; Start 06/23/17 at 18:00 Heparin Sodium (Porcine) (Heparin Inj) 5,000 units Q12HR SQ Last administered on 06/24/17 08:14; Start 06/23/17 at 21:00; Status Future Hold Aspirin (Aspirin Chew) 81 mg DAILY CHEW Last administered on 06/24/17 08:12; Start 06/24/17 at 09:00; Status Future Hold Atorvastatin Calcium (Lipitor) 40 mg HS PO Last administered on 06/27/17 21:11 ; Start 06/23/17 at 21:00 Duloxetine HCl (Cymbalta Dr) 30 mg DAILY PO Last administered on 06/28/17 08: 51; Start 06/24/17 at 09:00 Finasteride (Proscar) 5 mg DAILY PO Last administered on 06/28/17 08:51; Start 06/24/17 at 09:00 Gabapentin (Neurontin) 300 mg DAILY PO ; Start 06/24/17 at 09:00; Stop 06/24/17 at 09:00; Status DC Gabapentin (Neurontin) 600 mg HS PO Last administered on 06/27/17 21:11; Start 06/23/17 at 21:00 Isosorbide Dinitrate (Isordil) 30 mg HS PO Last administered on 06/27/17 23:42 ; Start 06/23/17 at 21:00 Pantoprazole Sodium (Protonix) 40 mg DAILY PO Last administered on 06/27/17 08 :41; Start 06/24/17 at 09:00; Stop 06/27/17 at 15:31; Status DC Dextrose (D50w (Vial) Inj) 50 ml UNSCH PRN IV PUSH HYPOGLYCEMIA-SEE COMMENTS; Start 06/23/17 at 15:45 Glucagon (Glucagon Inj) 1 mg UNSCH PRN OTHER HYPOGLYCEMIA-SEE COMMENTS; Start 06/23/17 at 15:45 Insulin Aspart (NovoLOG SUPPLEMENTAL SCALE) 1 ACHS SLIDING SCALE SQ Last administered on 06/28/17 08:52; Start 06/23/17 at 17:00 Pneumococcal Polyvalent Vaccine (Pneumovax-23 Inj) 25 mcg ONCE ONCE IM Last administered on 06/24/17 10:52; Start 06/24/17 at 10:00; Stop 06/24/17 at 10:01 ; Status DC Influenza Virus Vaccine (Flu (Quadrivalent) Vaccine Inj) 0.5 ml ONCE ONCE IM Last administered on 06/24/17 10:54; Start 06/24/17 at 10:00; Stop 06/24/17 at 10:01; Status DC Gabapentin (Neurontin) 300 mg TID PO Last administered on 06/28/17 08:51; Start 06/24/17 at 18:00 Miscellaneous Medication (ASP Crit: Doc ESBL, MDR A baumannii or P aer) 1 UNSCH X1 PRN .XX PHARMACY DOCUMENTATION; Start 06/25/17 at 16:15; Stop 06/26/17 at 16 :14; Status DC Miscellaneous Medication (ASP Crit: Infectious disease consult) 1 UNSCH X1 PRN .XX PHARMACY DOCUMENTATION; Start 06/25/17 at 16:15; Stop 06/26/17 at 16:14; Status DC Miscellaneous Medication ([facility] Information) 1 UNSCH X1 PRN XX PHARMACY DOCUMENTATION; Start 06/25/17 at 16:15; Stop 06/26/17 at 16:14; Status DC Ertapenem 500 mg/ Sodium Chloride 100 ml @ 200 mls/hr Q24H IV Last administered on 06/28/17 01:49; Start 06/25/17 at 20:00 Chlorhexidine Gluconate (Hibiclens 4% Top Soln) 1 applic HS TOP Last administered on 06/26/17 20:31; Start 06/26/17 at 21:00; Stop 06/28/17 at 21:01 Lactated Ringer's 1,000 ml @ 30 mls/hr Q24H PRN IV SEE LABEL COMMENTS Last administered on 06/27/17 11:15; Start 06/27/17 at 11:45; Stop 06/30/17 at 11: 44 Sodium Chloride 500 ml @ 30 mls/hr [id number] PRN IV SEE LABEL COMMENTS; Start at 11:45; Stop 06/30/17 at 11:44 Metoprolol Tartrate (Lopressor) 25 mg ECOLOGICAL RISK ASSESSOR PRN PO SEE LABEL COMMENTS; Start 06/27/17 at 11:45; Stop 06/30/17 at 11:44 Povidone Iodine (Betadine 5% Antisepsis Kit) 1 applic ECOLOGICAL RISK ASSESSOR PRN EACH NARE SEE LABEL COMMENTS; Start 06/27/17 at 11:45; Stop 06/30/17 at 11:44 Chlorhexidine Gluconate (Chlorhexidine 2% Cloth) 3 pack ECOLOGICAL RISK ASSESSOR PRN TOPICAL SEE LABEL COMMENTS; Start 06/27/17 at 11:45; Stop 06/30/17 at 11:44 Insulin Human Regular (NovoLIN R INJ) See Protocol Table ... ECOLOGICAL RISK ASSESSOR PRN SQ SEE PROTOCOL TABLE; Start 06/27/17 at 11:45; Stop 06/30/17 at 11:44 Microfibriller Collagen Hemostat (Avitene Bandage) 1 bandage STK-MED ONCE .ROUTE Last administered on 06/27/17 14:30; Start 06/27/17 at 12:21; Stop 06/27/17 at 12:22; Status DC Thrombin (Thrombin Top Soln) 10,000 units STK-MED ONCE .ROUTE Last administered on 06/27/17 14:30; Start 06/27/17 at 12:21; Stop 06/27/17 at 12:22 ; Status DC Cefazolin Sodium/ Dextrose 50 ml @ As Directed STK-MED ONCE .ROUTE ; Start 06/27 at 12:21; Stop 06/27/17 at 12:22; Status DC Gelatin (Gelfoam 100 Top) 1 foam STK-MED ONCE .ROUTE Last administered on 14:30; Start 06/27/17 at 12:21; Stop 06/27/17 at 12:22; Status DC Gentamicin Sulfate (Gentamicin Inj) 240 mg STK-MED ONCE .ROUTE Last administered on 06/27/17 14:30; Start 06/27/17 at 12:21; Stop 06/27/17 at 12:22 ; Status DC Potassium Chloride/Sodium Chloride 1,000 ml @ 100 mls/hr Q10H IV Last administered on 06/27/17 16:30; Start 06/27/17 at 16:00; Stop 06/28/17 at 00:47 ; Status DC IV Flush (NS Flush) 2 ml UNSCH PRN IVF FLUSH AFTER USING IV ACCESS; Start 06/27 at 13:45 IV Flush (NS Flush) 2 ml BID IVF ; Start 06/27/17 at 21:00 Cefazolin Sodium/ Dextrose 50 ml @ 100 mls/hr Q8H IV Last administered on 06/28 06:13; Start 06/27/17 at 22:00; Stop 06/28/17 at 14:29 Docusate Sodium (Colace) 100 mg BID PO Last administered on 06/28/17 08:51; Start 06/27/17 at 21:00 Pantoprazole Sodium (Protonix) 40 mg DAILY PO Last administered on 06/28/17 08 :51; Start 06/28/17 at 09:00 Acetaminophen/ Hydrocodone Bitart ([place] 10-325 Mg) 1 tab Q4H PRN PO PAIN SCALE 1 TO 5 Last administered on 06/27/17 21:12; Start 06/27/17 at 13:45 Acetaminophen/ Hydrocodone Bitart ([place] 10-325 Mg) 2 tab Q4H PRN PO PAIN SCALE 6 TO 10 Last administered on 06/28/17 01:49; Start 06/27/17 at 13:45 Morphine Sulfate (Morphine Inj) 2 mg Q2H PRN IV PUSH PAIN SCALE 1 TO 6; Start 06/27/17 at 13:45; Stop 06/27/17 at 15:35; Status DC Morphine Sulfate (Morphine Inj) 4 mg Q2H PRN IV PUSH PAIN SCALE 7 TO 10; Start 06/27/17 at 13:45 Acetaminophen (Tylenol) 650 mg Q4H PRN PO TEMPERATURE > 101.5 F; Start at 13:45 Bupivacaine HCl/ Epinephrine Bitart (Sensorcaine-Epinephrine Pf 0.5% Inj) 30 ml STK-MED ONCE .ROUTE Last administered on 06/27/17 14:55; Start 06/27/17 at 14: 56; Stop 06/27/17 at 14:57; Status DC Morphine Sulfate (Morphine Inj) 2 mg Q2H PRN IV PUSH PAIN SCALE 1 TO 6; Start 06/27/17 at 15:45 Miscellaneous Information ALL NURSING DEPARTME... UNSCH PRN .XX SEE LABEL COMMENTS; Start 06/27/17 at 15:58; Stop 06/28/17 at 15:57 Albuterol Sulfate (Albuterol Neb) 2.5 mg Q4HR NEB INH Last administered on 08:06; Start 06/27/17 at 20:00 Morphine Sulfate (*morphine INJ PERIprocedure ONLY) 8 mg STK-MED ONCE .ROUTE Last administered on 06/27/17 18:48; Start 06/27/17 at 18:48; Stop 06/27/17 at 18:49; Status DC A/P Problem List: (1) UTI (urinary tract infection) ICD Code: N39.0 - Urinary tract infection, site not specified Status: Acute (2) Acute renal failure ICD Code: N17.9 - Acute kidney failure, unspecified Status: Acute (3) Weakness generalized ICD Code: R53.1 - Weakness Status: Acute (4) Bladder outlet obstruction ICD Code: N32.0 - Bladder-neck obstruction Status: Acute (5) Hematuria ICD Code: R31.9 - Hematuria, unspecified Assessment and Plan This is a 82-year-old male who initially presented with a UTI UTI: Urine culture growing ESBL Escherichia coli. -Appreciate infectious disease recommendations. Continue Invanz. Acute renal failure: -Patient has good urine output. Most likely this may be his baseline. Unable to compare. This may be chronic renal insufficiency. Cervical stenosis with myelopathy s/p C5-7 posterior cervical laminectomy and foraminotomy on 06/27/2017 Hematuria -Medrano catheter in place. Hematuria is improving. Aspirin on hold. Appreciate urology recommendations. Plan is to discharge the patient with Medrano catheter in place. DVT prophylaxis: SCDs. Heparin on hold secondary to hematuria, surgical intervention. Discharge Planning Discussed case with neurosurgeon, Dr. Gambino most likely can be discharge in 1-2 days to SNF. Problem Qualifiers (1) UTI (urinary tract infection): Qualified Codes: N39.0 - Urinary tract infection, site not specified; R31.9 - Hematuria, unspecified (2) Acute renal failure: Qualified Codes: N17.9 - Acute kidney failure, unspecified (3) Hematuria: Qualified Codes: R31.0 - Gross hematuria Rivka Jang MD Jun 28, 2017 10:53
[2017-06-28] MEDS: GLIMEPIRIDE 2 MG TAB PO SCH (12:51)
--- NOTE | 2017-06-28 16:22 | HHI.NSPN ---
Note Status Status: Progress Note Interval History Interval History This is a 82-year-old male with past medical history of hyperlipidemia, IL, neuropathy, GERD, diabetes, BPH comes in to the emergency room status post fall. at bedside helps with the history and states that he was trying to transfer from bed to his wheelchair when he tried to get up , tried holding his walker and he fell. Pt states that he experienced weakness in his upper extremities which is new. Patient hit the front of his head. He complained to her of neck pain. Patient denied any chest pain, lightheadedness or dizziness. Denies any burning with urination or increase in urinary frequency. However , states that prior to March he was treated on multiple occasions about 4 times for urinary tract infection until they were able to get cultures and he was appropriately treated. It has been about 3 months since he hasn't been on any antibiotics. He denies any prior history of kidney failures or kidney disease. Reports feeling nauseous however he denies any vomiting or fevers or chills. tells me after the fall she noted some fasciculations in his upper extremities and tremors of the upper extremities which is new for him. CT C spine showed stenosis. Neurosurgical consultation was requested 06/25: patient seen this morning during rounds. MRI C spine ordered - pending. no changes in his neuro symptoms. 06/26: dw more in detail. patient had ACDF July [address] Monsalve, orthopedic surgeon. Patient did well for a while following surgery but then was becoming progressively weak in his legs again, and has had falls at home as his legs give out. this most recent fall caused more weakness in his extremities. 06/28: s/p cervical decompressive laminectomy, doing well, c/o ana collar not comfortable. has improvement in his upper extremity dysesthesias Labs, Micro, & Vital Signs Results Date Time Temp Pulse Resp B/P (MAP) Pulse Ox O2 Delivery O2 Flow Rate FiO2 06/28/17 12:27 95.3 64 18 135/69 (91) 99 06/28/17 08:39 95.8 64 18 104/56 (72) 97 06/28/17 08:06 98 Nasal Cannula 2.00 06/28/17 04:36 99 Nasal Cannula 2.00 06/28/17 04:00 97.4 73 18 112/56 (74) 99 06/28/17 01:30 97.4 18 18 98/52 (67) 99 06/28/17 01:30 93 Nasal Cannula 2.00 06/27/17 20:06 98.0 76 16 139/68 (91) 97 Nasal Cannula 2 06/27/17 20:00 97.2 72 18 129/61 (83) 96 06/27/17 18:15 70 12 142/68 (92) 99 06/27/17 18:00 97.3 65 12 129/61 (83) 99 06/27/17 17:45 66 14 133/65 (87) 98 06/27/17 17:30 65 13 138/65 (89) 99 06/27/17 17:15 66 13 137/63 (87) 97 06/27/17 17:00 70 14 138/64 (88) 94 06/27/17 16:45 69 12 140/66 (90) 95 Room Air 06/27/17 16:30 69 15 126/58 (80) 97 06/29/17 07:00 Intake Total 950 ml Output Total 800 ml Balance 150 ml Constitutional Vital Signs Date Time Temp Pulse Resp B/P (MAP) Pulse Ox O2 Delivery O2 Flow Rate FiO2 06/28/17 12:27 95.3 64 18 135/69 (91) 99 06/28/17 08:39 95.8 64 18 104/56 (72) 97 06/28/17 08:06 98 Nasal Cannula 2.00 06/28/17 04:36 99 Nasal Cannula 2.00 06/28/17 04:00 97.4 73 18 112/56 (74) 99 06/28/17 01:30 97.4 18 18 98/52 (67) 99 06/28/17 01:30 93 Nasal Cannula 2.00 06/27/17 20:06 98.0 76 16 139/68 (91) 97 Nasal Cannula 2 06/27/17 20:00 97.2 72 18 129/61 (83) 96 06/27/17 18:15 70 12 142/68 (92) 99 06/27/17 18:00 97.3 65 12 129/61 (83) 99 06/27/17 17:45 66 14 133/65 (87) 98 06/27/17 17:30 65 13 138/65 (89) 99 06/27/17 17:15 66 13 137/63 (87) 97 06/27/17 17:00 70 14 138/64 (88) 94 06/27/17 16:45 69 12 140/66 (90) 95 Room Air 06/27/17 16:30 69 15 126/58 (80) 97 06/29/17 07:00 Intake Total 950 ml Output Total 800 ml Balance 150 ml Physical Exam Mr. Plata is alert, awake and oriented to place and person. Speech is fluent. surgical wound with clean optifoam dressing. MILAGRO drain with minimal drainage. Cranial nerve examination demonstrates the pupils to be equal, round, and reactive to light. Extra-ocular movements are intact. Facial motor are normal and symmetrical. Gross decreased hearing. Cervical spine immobilized by collar. Muscle strength is 5-/5 deltoid, 4+both biceps, right triceps, 4-/5 left triceps and bung remover. In the lower extremities, strength is 4+ to 5-/5 in iliopsoas , quadriceps, hamstrings, plantar flexion, dorsiflexion. Deep tendon reflexes are trace to 1+ biceps, triceps, and brachioradialis in the upper extremities. In the lower extremities, the patellar and Achilles are absent, bilaterally. There is a bilateral Babinski response. Yasmeen sign is negative. There is no clonus. Medications Current Medications Current Medications Medications (Trade) Dose Ordered Sig/Oracio Route PRN Reason Start Time Stop Time Status Last Admin Dose Admin Sodium Chloride 1,000 ml @ 75 mls/hr [id number] IV 06/23/17 15:00 06/28/17 14:38 Ondansetron HCl (Zofran Inj) 4 mg Q6H PRN IVP NAUSEA OR VOMITING 06/23/17 14:45 Naloxone HCl (Narcan Inj) 0.4 mg UNSCH PRN IV PUSH SEE LABEL COMMENTS 06/23/17 14:45 Magnesium Hydroxide (Milk Of Magnesia Liq) 30 ml Q12H PRN PO Mild constipation 06/23/17 14:45 Sennosides (Senokot) 17.2 mg Q12H PRN PO Moderate constipation 06/23/17 14:45 Bisacodyl (Dulcolax Supp) 10 mg DAILY PRN RECTAL SEVERE CONSITIPATION 06/23/17 14:45 Lactulose (Lactulose Liq) 30 ml DAILY PRN PO SEVERE CONSITIPATION 06/23/17 14:45 Lactobacillus Acidophilus (Lactinex Pkt) 1 gm TID PO 06/23/17 18:00 06/28/17 12:53 Heparin Sodium (Porcine) (Heparin Inj) 5,000 units Q12HR SQ 06/23/17 21:00 Future Hold 06/24/17 08:14 Aspirin (Aspirin Chew) 81 mg DAILY CHEW 06/24/17 09:00 Future Hold 06/24/17 08:12 Atorvastatin Calcium (Lipitor) 40 mg HS PO 06/23/17 21:00 06/27/17 21:11 Duloxetine HCl (Cymbalta Dr) 30 mg DAILY PO 06/24/17 09:00 06/28/17 08:51 Finasteride (Proscar) 5 mg DAILY PO 06/24/17 09:00 06/28/17 08:51 Gabapentin (Neurontin) 600 mg HS PO 06/23/17 21:00 06/27/17 21:11 Isosorbide Dinitrate (Isordil) 30 mg HS PO 06/23/17 21:00 06/27/17 23:42 Dextrose (D50w (Vial) Inj) 50 ml UNSCH PRN IV PUSH HYPOGLYCEMIA-SEE COMMENTS 06/23/17 15:45 Glucagon (Glucagon Inj) 1 mg UNSCH PRN OTHER HYPOGLYCEMIA-SEE COMMENTS 06/23/17 15:45 Insulin Aspart (NovoLOG SUPPLEMENTAL SCALE) 1 ACHS SLIDING SCALE SQ 06/23/17 17:00 06/28/17 12:53 Gabapentin (Neurontin) 300 mg TID PO 06/24/17 18:00 06/28/17 12:51 Ertapenem 500 mg/ Sodium Chloride 100 ml @ 200 mls/hr Q24H IV 06/25/17 20:00 06/28/17 01:49 Chlorhexidine Gluconate (Hibiclens 4% Top Soln) 1 applic HS TOP 06/26/17 21:00 06/28/17 21:01 06/26/17 20:31 Lactated Ringer's 1,000 ml @ 30 mls/hr Q24H PRN IV SEE LABEL COMMENTS 06/27/17 11:45 06/30/17 11:44 06/27/17 11:15 Sodium Chloride 500 ml @ 30 mls/hr [id number] PRN IV SEE LABEL COMMENTS 06/27/17 11:45 06/30/17 11:44 Metoprolol Tartrate (Lopressor) 25 mg DIETETICS PROFESSOR PRN PO SEE LABEL COMMENTS 06/27/17 11:45 06/30/17 11:44 Povidone Iodine (Betadine 5% Antisepsis Kit) 1 applic DIETETICS PROFESSOR PRN EACH NARE SEE LABEL COMMENTS 06/27/17 11:45 06/30/17 11:44 Chlorhexidine Gluconate (Chlorhexidine 2% Cloth) 3 pack DIETETICS PROFESSOR PRN TOPICAL SEE LABEL COMMENTS 06/27/17 11:45 06/30/17 11:44 Insulin Human Regular (NovoLIN R INJ) See Protocol Table ... DIETETICS PROFESSOR PRN SQ SEE PROTOCOL TABLE 06/27/17 11:45 06/30/17 11:44 IV Flush (NS Flush) 2 ml UNSCH PRN IVF FLUSH AFTER USING IV ACCESS 06/27/17 13:45 IV Flush (NS Flush) 2 ml BID IVF 06/27/17 21:00 Docusate Sodium (Colace) 100 mg BID PO 06/27/17 21:00 06/28/17 08:51 Pantoprazole Sodium (Protonix) 40 mg DAILY PO 06/28/17 09:00 06/28/17 08:51 Acetaminophen/ Hydrocodone Bitart ([place] 10-325 Mg) 1 tab Q4H PRN PO PAIN SCALE 1 TO 5 06/27/17 13:45 06/27/17 21:12 Acetaminophen/ Hydrocodone Bitart ([place] 10-325 Mg) 2 tab Q4H PRN PO PAIN SCALE 6 TO 10 06/27/17 13:45 06/28/17 14:39 Morphine Sulfate (Morphine Inj) 4 mg Q2H PRN IV PUSH PAIN SCALE 7 TO 10 06/27/17 13:45 Acetaminophen (Tylenol) 650 mg Q4H PRN PO TEMPERATURE > 101.5 F 06/27/17 13:45 Morphine Sulfate (Morphine Inj) 2 mg Q2H PRN IV PUSH PAIN SCALE 1 TO 6 06/27/17 15:45 Albuterol Sulfate (Albuterol Neb) 2.5 mg Q4HR NEB INH 06/27/17 20:00 06/28/17 16:15 Glimepiride (Amaryl) 2 mg DAILY PO 06/28/17 12:00 06/28/17 12:51 Medical Decision Making MDM Remarks 82 y/o male s/p fall, acute upper extremity weakness CT C spine without acute fractures MRI Cervical spine with severe canal stenosis, cord compression at C5-6, C6-7, s /p cervical decompressive laminectomy 06/27/17 Plan Plan Remarks dc MILAGRO drain, change to soft collar, [place] on during therapy cont PT, OT, rehab efforts Sparkle Dave Jun 28, 2017 16:22
[2017-06-28] MEDS: CHLORHEXIDINE GLUCONATE 4% SOLN 120 ML BTL TOP SCH (21:00)
[2017-06-28] MEDS: ATORVASTATIN 40 MG TAB PO SCH (21:22)
[2017-06-28] MEDS: ISOSORBIDE DINITRATE 10 MG TAB PO SCH (21:22)
[2017-06-29] VITALS (8 sets, daily range): BP systolic 106–146; BP diastolic 58–67; PULSE 80–94; RESP 18–20; TEMP 97.4–99.4; O2SAT 87–95
[2017-06-29] MEDS: RESP: ALBUTEROL 2.5 MG/3 ML NEB (SCH) INH ×6 (00:47→21:22)
[2017-06-29] MEDS: SODIUM CHLOR 0.9% 1000 ML INJ 1,000 ML IV SCH ×2 (05:43→15:58)
[2017-06-29] MEDS: INSULIN ASPART SUPPLEMENTAL SCALE SQ SCH ×4 (07:47→21:00)
[2017-06-29] MEDS: SODIUM CHLORIDE 0.9% FLUSH 5 ML FLUSH IVF SCH ×2 (09:00→21:00)
[2017-06-29] MEDS: FINASTERIDE 5 MG TAB PO SCH (09:04)
[2017-06-29] MEDS: DULoxetine HCl DR 30 MG CAP PO SCH (09:04)
[2017-06-29] MEDS: PANTOPRAZOLE SOD 40 MG DELAYED RELEASE TAB PO SCH (09:04)
[2017-06-29] MEDS: DOCUSATE SODIUM 100 MG CAP PO SCH ×2 (09:04→21:16)
[2017-06-29] MEDS: GABAPENTIN 300 MG CAP PO SCH ×4 (09:04→21:16)
[2017-06-29] MEDS: GLIMEPIRIDE 2 MG TAB PO SCH (09:04)
[2017-06-29] MEDS: LACTOBACILLUS ACIDOPHILUS 1 GM PACKET PO SCH ×3 (09:04→15:58)
[2017-06-29] MEDS: ACETAMINOPHEN/HYDROcodone 325 MG/10 MG TAB PO PRN ×2 (09:18→12:38)
--- NOTE | 2017-06-29 11:29 | HHI.PR ---
Subjective Remarks Follow-up status post surgery and infection Patient is laying in bed. He had no complaints. Denied any pain. His is at the bedside. When I spoke to patient in regards to where he was with physical therapy his stated that when they try to get him out of bed yesterday he was standing but his pain was too severe for him to walk to the chair. Patient did not take any pain medication prior to this episode. Otherwise he remains afebrile has no other complaints. Discussed with patient's nurse Objective Vitals Vital Signs Date Time Temp Pulse Resp B/P (MAP) Pulse Ox O2 Delivery O2 Flow Rate FiO2 06/29/17 10:19 16 06/29/17 08:00 97.4 91 18 128/65 (86) 95 06/29/17 07:29 95 Nasal Cannula 2.00 06/29/17 04:00 99.4 94 20 119/62 (81) 95 06/29/17 00:00 97.7 88 18 106/58 (74) 92 06/28/17 20:40 93 21 06/28/17 20:00 97.0 86 20 145/80 (101) 94 06/28/17 16:35 98.0 70 18 166/75 (105) 100 06/28/17 12:27 95.3 64 18 135/69 (91) 99 I/O 06/28/17 06/28/17 06/28/17 06/29/17 06/29/17 06/29/17 07:00 15:00 23:00 07:00 15:00 23:00 Intake Total 2091 ml 1430 ml Output Total 50 ml 1500 ml 725 ml 1200 ml Balance 2041 ml -70 ml -725 ml -1200 ml Intake Oral 120 ml 480 ml IV Total 1971 ml 950 ml Output Urine Total 1500 ml 725 ml 1200 ml Drainage Total 50 ml Result Diagram: 06/28/1743 06/28/1743 Objective Remarks Gen; in no acute distress. Appears very weak. CARDIOVASCULAR: Regular rate and rhythm without murmurs, gallops, or rubs. RESPIRATORY: Breath sounds equal bilaterally. No accessory muscle use. GASTROINTESTINAL: Abdomen soft, non-tender, nondistended. MUSCULOSKELETAL: 5 out of 5 upper lung history strength. Sensations intact. Procedures None Medications and IVs Current Medications IV Flush (NS Flush) 2 ml UNSCH PRN IV FLUSH FLUSH AFTER USING IV ACCESS; Start 06/23/17 at 12:30; Stop 06/23/17 at 14:59; Status DC Sodium Chloride 1,000 ml @ 999 mls/hr BOLUS ONCE IV Last administered on 06/23 14:08; Start 06/23/17 at 13:30; Stop 06/23/17 at 14:30; Status DC Ceftriaxone Sodium 1000 mg/ Sodium Chloride 100 ml @ 200 mls/hr ONCE ONCE IV Last administered on 06/23/17 14:08; Start 06/23/17 at 13:30; Stop 06/23/17 at 13:59; Status DC Gabapentin (Neurontin) 100 mg ONCE ONCE PO Last administered on 06/23/17 15: 14; Start 06/23/17 at 14:15; Stop 06/23/17 at 14:16; Status DC Sodium Chloride 1,000 ml @ 75 mls/hr [id number] IV Last administered on 05:43; Start 06/23/17 at 15:00 Sodium Chloride (NS Flush) 2 ml UNSCH PRN IV FLUSH FLUSH AFTER USING IV ACCESS Last administered on 06/27/17 11:15; Start 06/23/17 at 14:45; Stop 06/27/17 at 15:32; Status DC Sodium Chloride (NS Flush) 2 ml BID IV FLUSH Last administered on 06/27/17 08: 44; Start 06/23/17 at 21:00; Stop 06/27/17 at 15:32; Status DC Ondansetron HCl (Zofran Inj) 4 mg Q6H PRN IVP NAUSEA OR VOMITING; Start at 14:45 Naloxone HCl (Narcan Inj) 0.4 mg UNSCH PRN IV PUSH SEE LABEL COMMENTS; Start 06/23/17 at 14:45 Senna/Docusate Sodium (Georgette-Colace) 1 tab BID PO Last administered on 08:41; Start 06/23/17 at 21:00; Stop 06/27/17 at 15:30; Status DC Magnesium Hydroxide (Milk Of Magnesia Liq) 30 ml Q12H PRN PO Mild constipation Last administered on 06/29/17 09:04; Start 06/23/17 at 14:45 Sennosides (Senokot) 17.2 mg Q12H PRN PO Moderate constipation Last administered on 06/29/17 09:04; Start 06/23/17 at 14:45 Bisacodyl (Dulcolax Supp) 10 mg DAILY PRN RECTAL SEVERE CONSITIPATION; Start 06/23/17 at 14:45 Lactulose (Lactulose Liq) 30 ml DAILY PRN PO SEVERE CONSITIPATION; Start at 14:45 Ceftriaxone Sodium 1000 mg/ Sodium Chloride 100 ml @ 200 mls/hr Q24H IV Last administered on 06/25/17 15:44; Start 06/24/17 at 14:00; Stop 06/25/17 at 16:19 ; Status DC Lactobacillus Acidophilus (Lactinex Pkt) 1 gm TID PO Last administered on 06/29 09:04; Start 06/23/17 at 18:00 Heparin Sodium (Porcine) (Heparin Inj) 5,000 units Q12HR SQ Last administered on 06/24/17 08:14; Start 06/23/17 at 21:00; Status Future Hold Aspirin (Aspirin Chew) 81 mg DAILY CHEW Last administered on 06/24/17 08:12; Start 06/24/17 at 09:00; Status Future Hold Atorvastatin Calcium (Lipitor) 40 mg HS PO Last administered on 06/28/17 21:22 ; Start 06/23/17 at 21:00 Duloxetine HCl (Cymbalta Dr) 30 mg DAILY PO Last administered on 06/29/17 09: 04; Start 06/24/17 at 09:00 Finasteride (Proscar) 5 mg DAILY PO Last administered on 06/29/17 09:04; Start 06/24/17 at 09:00 Gabapentin (Neurontin) 300 mg DAILY PO ; Start 06/24/17 at 09:00; Stop 06/24/17 at 09:00; Status DC Gabapentin (Neurontin) 600 mg HS PO Last administered on 06/28/17 21:22; Start 06/23/17 at 21:00 Isosorbide Dinitrate (Isordil) 30 mg HS PO Last administered on 06/28/17 21:22 ; Start 06/23/17 at 21:00 Pantoprazole Sodium (Protonix) 40 mg DAILY PO Last administered on 06/27/17 08 :41; Start 06/24/17 at 09:00; Stop 06/27/17 at 15:31; Status DC Dextrose (D50w (Vial) Inj) 50 ml UNSCH PRN IV PUSH HYPOGLYCEMIA-SEE COMMENTS; Start 06/23/17 at 15:45 Glucagon (Glucagon Inj) 1 mg UNSCH PRN OTHER HYPOGLYCEMIA-SEE COMMENTS; Start 06/23/17 at 15:45 Insulin Aspart (NovoLOG SUPPLEMENTAL SCALE) 1 ACHS SLIDING SCALE SQ Last administered on 06/28/17 17:41; Start 06/23/17 at 17:00 Pneumococcal Polyvalent Vaccine (Pneumovax-23 Inj) 25 mcg ONCE ONCE IM Last administered on 06/24/17 10:52; Start 06/24/17 at 10:00; Stop 06/24/17 at 10:01 ; Status DC Influenza Virus Vaccine (Flu (Quadrivalent) Vaccine Inj) 0.5 ml ONCE ONCE IM Last administered on 06/24/17 10:54; Start 06/24/17 at 10:00; Stop 06/24/17 at 10:01; Status DC Gabapentin (Neurontin) 300 mg TID PO Last administered on 06/29/17 09:04; Start 06/24/17 at 18:00 Miscellaneous Medication (ASP Crit: Doc ESBL, MDR A baumannii or P aer) 1 UNSCH X1 PRN .XX PHARMACY DOCUMENTATION; Start 06/25/17 at 16:15; Stop 06/26/17 at 16 :14; Status DC Miscellaneous Medication (ASP Crit: Infectious disease consult) 1 UNSCH X1 PRN .XX PHARMACY DOCUMENTATION; Start 06/25/17 at 16:15; Stop 06/26/17 at 16:14; Status DC Miscellaneous Medication ([facility] [place] [facility] Information) 1 UNSCH X1 PRN XX PHARMACY DOCUMENTATION; Start 06/25/17 at 16:15; Stop 06/26/17 at 16:14; Status DC Ertapenem 500 mg/ Sodium Chloride 100 ml @ 200 mls/hr Q24H IV Last administered on 06/28/17 21:22; Start 06/25/17 at 20:00 Chlorhexidine Gluconate (Hibiclens 4% Top Soln) 1 applic HS TOP Last administered on 06/26/17 20:31; Start 06/26/17 at 21:00; Stop 06/28/17 at 21:01 ; Status DC Lactated Ringer's 1,000 ml @ 30 mls/hr Q24H PRN IV SEE LABEL COMMENTS Last administered on 06/27/17 11:15; Start 06/27/17 at 11:45; Stop 06/30/17 at 11: 44 Sodium Chloride 500 ml @ 30 mls/hr [id number] PRN IV SEE LABEL COMMENTS; Start at 11:45; Stop 06/30/17 at 11:44 Metoprolol Tartrate (Lopressor) 25 mg UNDERWATER WELDER PRN PO SEE LABEL COMMENTS; Start 06/27/17 at 11:45; Stop 06/30/17 at 11:44 Povidone Iodine (Betadine 5% Antisepsis Kit) 1 applic UNDERWATER WELDER PRN EACH NARE SEE LABEL COMMENTS; Start 06/27/17 at 11:45; Stop 06/30/17 at 11:44 Chlorhexidine Gluconate (Chlorhexidine 2% Cloth) 3 pack UNDERWATER WELDER PRN TOPICAL SEE LABEL COMMENTS; Start 06/27/17 at 11:45; Stop 06/30/17 at 11:44 Insulin Human Regular (NovoLIN R INJ) See Protocol Table ... UNDERWATER WELDER PRN SQ SEE PROTOCOL TABLE; Start 06/27/17 at 11:45; Stop 06/30/17 at 11:44 Microfibriller Collagen Hemostat (Avitene Bandage) 1 bandage STK-MED ONCE .ROUTE Last administered on 06/27/17 14:30; Start 06/27/17 at 12:21; Stop 06/27/17 at 12:22; Status DC Thrombin (Thrombin Top Soln) 10,000 units STK-MED ONCE .ROUTE Last administered on 06/27/17 14:30; Start 06/27/17 at 12:21; Stop 06/27/17 at 12:22 ; Status DC Cefazolin Sodium/ Dextrose 50 ml @ As Directed STK-MED ONCE .ROUTE ; Start 06/27 at 12:21; Stop 06/27/17 at 12:22; Status DC Gelatin (Gelfoam 100 Top) 1 foam STK-MED ONCE .ROUTE Last administered on 14:30; Start 06/27/17 at 12:21; Stop 06/27/17 at 12:22; Status DC Gentamicin Sulfate (Gentamicin Inj) 240 mg STK-MED ONCE .ROUTE Last administered on 06/27/17 14:30; Start 06/27/17 at 12:21; Stop 06/27/17 at 12:22 ; Status DC Potassium Chloride/Sodium Chloride 1,000 ml @ 100 mls/hr Q10H IV Last administered on 06/27/17 16:30; Start 06/27/17 at 16:00; Stop 06/28/17 at 00:47 ; Status DC IV Flush (NS Flush) 2 ml UNSCH PRN IVF FLUSH AFTER USING IV ACCESS; Start 06/27 at 13:45 IV Flush (NS Flush) 2 ml BID IVF ; Start 06/27/17 at 21:00 Cefazolin Sodium/ Dextrose 50 ml @ 100 mls/hr Q8H IV Last administered on 06/28 14:37; Start 06/27/17 at 22:00; Stop 06/28/17 at 14:29; Status DC Docusate Sodium (Colace) 100 mg BID PO Last administered on 06/29/17 09:04; Start 06/27/17 at 21:00 Pantoprazole Sodium (Protonix) 40 mg DAILY PO Last administered on 06/29/17 09:04; Start 06/28/17 at 09:00 Acetaminophen/ Hydrocodone Bitart ([place] 10-325 Mg) 1 tab Q4H PRN PO PAIN SCALE 1 TO 5 Last administered on 06/29/17 09:18; Start 06/27/17 at 13:45 Acetaminophen/ Hydrocodone Bitart ([place] 10-325 Mg) 2 tab Q4H PRN PO PAIN SCALE 6 TO 10 Last administered on 06/28/17 14:39; Start 06/27/17 at 13:45 Morphine Sulfate (Morphine Inj) 2 mg Q2H PRN IV PUSH PAIN SCALE 1 TO 6; Start 06/27/17 at 13:45; Stop 06/27/17 at 15:35; Status DC Morphine Sulfate (Morphine Inj) 4 mg Q2H PRN IV PUSH PAIN SCALE 7 TO 10; Start 06/27/17 at 13:45 Acetaminophen (Tylenol) 650 mg Q4H PRN PO TEMPERATURE > 101.5 F; Start at 13:45 Bupivacaine HCl/ Epinephrine Bitart (Sensorcaine-Epinephrine Pf 0.5% Inj) 30 ml STK-MED ONCE .ROUTE Last administered on 06/27/17 14:55; Start 06/27/17 at 14: 56; Stop 06/27/17 at 14:57; Status DC Morphine Sulfate (Morphine Inj) 2 mg Q2H PRN IV PUSH PAIN SCALE 1 TO 6; Start 06/27/17 at 15:45 Miscellaneous Information ALL NURSING DEPARTME... UNSCH PRN .XX SEE LABEL COMMENTS; Start 06/27/17 at 15:58; Stop 06/28/17 at 15:57; Status DC Albuterol Sulfate (Albuterol Neb) 2.5 mg Q4HR NEB INH Last administered on 07:27; Start 06/27/17 at 20:00 Morphine Sulfate (*morphine INJ PERIprocedure ONLY) 8 mg STK-MED ONCE .ROUTE Last administered on 06/27/17 18:48; Start 06/27/17 at 18:48; Stop 06/27/17 at 18:49; Status DC Glimepiride (Amaryl) 2 mg DAILY PO Last administered on 06/29/17 09:04; Start 06/28/17 at 12:00 Bisacodyl (Dulcolax Supp) 10 mg ONCE ONCE RECTAL ; Start 06/29/17 at 11:30; Stop 06/29/17 at 11:31; Status UNV A/P Problem List: (1) UTI (urinary tract infection) ICD Code: N39.0 - Urinary tract infection, site not specified Status: Acute (2) Acute renal failure ICD Code: N17.9 - Acute kidney failure, unspecified Status: Acute (3) Weakness generalized ICD Code: R53.1 - Weakness Status: Acute (4) Bladder outlet obstruction ICD Code: N32.0 - Bladder-neck obstruction Status: Acute (5) Hematuria ICD Code: R31.9 - Hematuria, unspecified Assessment and Plan This is a 82-year-old male who initially presented with a UTI UTI: Urine culture growing ESBL Escherichia coli. -Appreciate infectious disease recommendations. Continue Invanz. -Repeat urine cultures done on 06/28/2017. If urine cultures are negative for 48 hours then Invanz can be discontinued but if cultures continue to be positive he will need to be discharged on Invanz and urine cultures will have to be follow-up as outpatient. Acute renal failure: -Patient has good urine output. Most likely this may be his baseline. Unable to compare. This may be chronic renal insufficiency. Cervical stenosis with myelopathy -s/p C5-7 posterior cervical laminectomy and foraminotomy on 06/27/2017 -Patient cleared by neurosurgeon to be discharged to rehabilitation facility. Hematuria -Medrano catheter in place. Hematuria is improving. Aspirin on hold. Appreciate urology recommendations. Plan is to discharge the patient with Medrano catheter in place. DVT prophylaxis: SCDs. Heparin on hold secondary to hematuria, surgical intervention. Discharge Planning Pending urine cultures before final plans can be given for discharge to SNF. Problem Qualifiers (1) UTI (urinary tract infection): Qualified Codes: N39.0 - Urinary tract infection, site not specified; R31.9 - Hematuria, unspecified (2) Acute renal failure: Qualified Codes: N17.9 - Acute kidney failure, unspecified (3) Hematuria: Qualified Codes: R31.0 - Gross hematuria Rivka Jang MD Jun 29, 2017 11:29
[2017-06-29] MEDS ORDERED: BISACODYL 10 MG SUPP RECTAL ONE (12:30)
--- NOTE | 2017-06-29 13:58 | HHI.NSPN ---
(Sparkle Dave) Note Status Status: Progress Note (Sparkle Dvae) Interval History Interval History This is a 82-year-old male with past medical history of hyperlipidemia, [place], neuropathy, GERD, diabetes, BPH comes in to the emergency room status post fall. at bedside helps with the history and states that he was trying to transfer from bed to his wheelchair when he tried to get up , tried holding his walker and he fell. Pt states that he experienced weakness in his upper extremities which is new. Patient hit the front of his head. He complained to her of neck pain. Patient denied any chest pain, lightheadedness or dizziness. Denies any burning with urination or increase in urinary frequency. However , states that prior to March he was treated on multiple occasions about 4 times for urinary tract infection until they were able to get cultures and he was appropriately treated. It has been about 3 months since he hasn't been on any antibiotics. He denies any prior history of kidney failures or kidney disease. Reports feeling nauseous however he denies any vomiting or fevers or chills. tells me after the fall she noted some fasciculations in his upper extremities and tremors of the upper extremities which is new for him. CT C spine showed stenosis. Neurosurgical consultation was requested 06/25: patient seen this morning during rounds. MRI C spine ordered - pending. no changes in his neuro symptoms. 06/26: dw more in detail. patient had ACDF July [address] Monsalve, orthopedic surgeon. Patient did well for a while following surgery but then was becoming progressively weak in his legs again, and has had falls at home as his legs give out. this most recent fall caused more weakness in his extremities. 06/28: s/p cervical decompressive laminectomy, doing well, c/o ana collar not comfortable. has improvement in his upper extremity dysesthesias 06/29: being fed breakfast, still repots arms and hands are weak. no new complaints. (Sparkle Dave) Labs, Micro, & Vital Signs Results Date Time Temp Pulse Resp B/P (MAP) Pulse Ox O2 Delivery O2 Flow Rate FiO2 06/29/17 13:38 18 06/29/17 10:19 16 06/29/17 08:00 97.4 91 18 128/65 (86) 95 06/29/17 07:29 95 Nasal Cannula 2.00 06/29/17 04:00 99.4 94 20 119/62 (81) 95 06/29/17 00:00 97.7 88 18 106/58 (74) 92 06/28/17 20:40 93 21 06/28/17 20:00 97.0 86 20 145/80 (101) 94 06/28/17 16:35 98.0 70 18 166/75 (105) 100 Constitutional Vital Signs Date Time Temp Pulse Resp B/P (MAP) Pulse Ox O2 Delivery O2 Flow Rate FiO2 06/29/17 13:38 18 06/29/17 10:19 16 06/29/17 08:00 97.4 91 18 128/65 (86) 95 06/29/17 07:29 95 Nasal Cannula 2.00 06/29/17 04:00 99.4 94 20 119/62 (81) 95 06/29/17 00:00 97.7 88 18 106/58 (74) 92 06/28/17 20:40 93 21 06/28/17 20:00 97.0 86 20 145/80 (101) 94 06/28/17 16:35 98.0 70 18 166/75 (105) 100 (Sparkle Dave) Physical Exam Mr. Plata is alert, awake and oriented to place and person. Speech is fluent. surgical wound with clean optifoam dressing. Cranial nerve examination: pupils equal, round, and reactive to light. Extra- ocular movements are intact. Facial motor are normal and symmetrical. Gross decreased hearing. Cervical spine limited due to postop conditions. Muscle strength is 5-/5 deltoid, 4/5 biceps, triceps and nurse transition. In the lower extremities, strength is 4+ to 5-/5. Bilateral Babinski response. (Sparkle Dave) Mr. Plata is alert, awake and oriented to place and person. Speech is fluent. surgical wound with clean optifoam dressing. Cranial nerve examination: pupils equal, round, and reactive to light. Extra- ocular movements are intact. Facial motor are normal and symmetrical. Gross decreased hearing. Cervical spine limited due to postop conditions. Muscle strength is 5-/5 deltoid, 4/5 biceps, triceps and nurse transition. In the lower extremities, strength is 4+ to 5-/5. Bilateral Babinski (Gunnar Gambino MD) Medications Current Medications Current Medications Medications (Trade) Dose Ordered Sig/Oracio Route PRN Reason Start Time Stop Time Status Last Admin Dose Admin Sodium Chloride 1,000 ml @ 75 mls/hr [id number] IV 06/23/17 15:00 06/29/17 05:43 Ondansetron HCl (Zofran Inj) 4 mg Q6H PRN IVP NAUSEA OR VOMITING 06/23/17 14:45 Naloxone HCl (Narcan Inj) 0.4 mg UNSCH PRN IV PUSH SEE LABEL COMMENTS 06/23/17 14:45 Magnesium Hydroxide (Milk Of Magnesia Liq) 30 ml Q12H PRN PO Mild constipation 06/23/17 14:45 06/29/17 09:04 Sennosides (Senokot) 17.2 mg Q12H PRN PO Moderate constipation 06/23/17 14:45 06/29/17 09:04 Bisacodyl (Dulcolax Supp) 10 mg DAILY PRN RECTAL SEVERE CONSITIPATION 06/23/17 14:45 Lactulose (Lactulose Liq) 30 ml DAILY PRN PO SEVERE CONSITIPATION 06/23/17 14:45 Lactobacillus Acidophilus (Lactinex Pkt) 1 gm TID PO 06/23/17 18:00 06/29/17 12:37 Heparin Sodium (Porcine) (Heparin Inj) 5,000 units Q12HR SQ 06/23/17 21:00 Future Hold 06/24/17 08:14 Aspirin (Aspirin Chew) 81 mg DAILY CHEW 06/24/17 09:00 Future Hold 06/24/17 08:12 Atorvastatin Calcium (Lipitor) 40 mg HS PO 06/23/17 21:00 06/28/17 21:22 Duloxetine HCl (Cymbalta Dr) 30 mg DAILY PO 06/24/17 09:00 06/29/17 09:04 Finasteride (Proscar) 5 mg DAILY PO 06/24/17 09:00 06/29/17 09:04 Gabapentin (Neurontin) 600 mg HS PO 06/23/17 21:00 06/28/17 21:22 Isosorbide Dinitrate (Isordil) 30 mg HS PO 06/23/17 21:00 06/28/17 21:22 Dextrose (D50w (Vial) Inj) 50 ml UNSCH PRN IV PUSH HYPOGLYCEMIA-SEE COMMENTS 06/23/17 15:45 Glucagon (Glucagon Inj) 1 mg UNSCH PRN OTHER HYPOGLYCEMIA-SEE COMMENTS 06/23/17 15:45 Insulin Aspart (NovoLOG SUPPLEMENTAL SCALE) 1 ACHS SLIDING SCALE SQ 06/23/17 17:00 06/28/17 17:41 Gabapentin (Neurontin) 300 mg TID PO 06/24/17 18:00 06/29/17 12:38 Ertapenem 500 mg/ Sodium Chloride 100 ml @ 200 mls/hr Q24H IV 06/25/17 20:00 06/28/17 21:22 Lactated Ringer's 1,000 ml @ 30 mls/hr Q24H PRN IV SEE LABEL COMMENTS 06/27/17 11:45 06/30/17 11:44 06/27/17 11:15 Sodium Chloride 500 ml @ 30 mls/hr [id number] PRN IV SEE LABEL COMMENTS 06/27/17 11:45 06/30/17 11:44 Metoprolol Tartrate (Lopressor) 25 mg CNC SET UP OPERATOR PRN PO SEE LABEL COMMENTS 06/27/17 11:45 06/30/17 11:44 Povidone Iodine (Betadine 5% Antisepsis Kit) 1 applic CNC SET UP OPERATOR PRN EACH NARE SEE LABEL COMMENTS 06/27/17 11:45 06/30/17 11:44 Chlorhexidine Gluconate (Chlorhexidine 2% Cloth) 3 pack CNC SET UP OPERATOR PRN TOPICAL SEE LABEL COMMENTS 06/27/17 11:45 06/30/17 11:44 Insulin Human Regular (NovoLIN R INJ) See Protocol Table ... CNC SET UP OPERATOR PRN SQ SEE PROTOCOL TABLE 06/27/17 11:45 06/30/17 11:44 IV Flush (NS Flush) 2 ml UNSCH PRN IVF FLUSH AFTER USING IV ACCESS 06/27/17 13:45 IV Flush (NS Flush) 2 ml BID IVF 06/27/17 21:00 Docusate Sodium (Colace) 100 mg BID PO 06/27/17 21:00 06/29/17 09:04 Pantoprazole Sodium (Protonix) 40 mg DAILY PO 06/28/17 09:00 06/29/17 09:04 Acetaminophen/ Hydrocodone Bitart ([place] 10-325 Mg) 1 tab Q4H PRN PO PAIN SCALE 1 TO 5 06/27/17 13:45 06/29/17 09:18 Acetaminophen/ Hydrocodone Bitart ([place] 10-325 Mg) 2 tab Q4H PRN PO PAIN SCALE 6 TO 10 06/27/17 13:45 06/29/17 12:38 Morphine Sulfate (Morphine Inj) 4 mg Q2H PRN IV PUSH PAIN SCALE 7 TO 10 06/27/17 13:45 Acetaminophen (Tylenol) 650 mg Q4H PRN PO TEMPERATURE > 101.5 F 06/27/17 13:45 Morphine Sulfate (Morphine Inj) 2 mg Q2H PRN IV PUSH PAIN SCALE 1 TO 6 06/27/17 15:45 Albuterol Sulfate (Albuterol Neb) 2.5 mg Q4HR NEB INH 06/27/17 20:00 06/29/17 07:27 Glimepiride (Amaryl) 2 mg DAILY PO 06/28/17 12:00 06/29/17 09:04 (Sparkle Dave) Current Medications Current Medications IV Flush (NS Flush) 2 ml UNSCH PRN IV FLUSH FLUSH AFTER USING IV ACCESS; Start 06/23/17 at 12:30; Stop 06/23/17 at 14:59; Status DC Sodium Chloride 1,000 ml @ 999 mls/hr BOLUS ONCE IV Last administered on 06/23 14:08; Start 06/23/17 at 13:30; Stop 06/23/17 at 14:30; Status DC Ceftriaxone Sodium 1000 mg/ Sodium Chloride 100 ml @ 200 mls/hr ONCE ONCE IV Last administered on 06/23/17 14:08; Start 06/23/17 at 13:30; Stop 06/23/17 at 13:59; Status DC Gabapentin (Neurontin) 100 mg ONCE ONCE PO Last administered on 06/23/17 15: 14; Start 06/23/17 at 14:15; Stop 06/23/17 at 14:16; Status DC Sodium Chloride 1,000 ml @ 75 mls/hr [id number] IV Last administered on 05:01; Start 06/23/17 at 15:00; Stop 06/30/17 at 12:12; Status DC Sodium Chloride (NS Flush) 2 ml UNSCH PRN IV FLUSH FLUSH AFTER USING IV ACCESS Last administered on 06/27/17 11:15; Start 06/23/17 at 14:45; Stop 06/27/17 at 15:32; Status DC Sodium Chloride (NS Flush) 2 ml BID IV FLUSH Last administered on 06/27/17 08: 44; Start 06/23/17 at 21:00; Stop 06/27/17 at 15:32; Status DC Ondansetron HCl (Zofran Inj) 4 mg Q6H PRN IVP NAUSEA OR VOMITING; Start at 14:45; Stop 07/02/17 at 16:56; Status DC Naloxone HCl (Narcan Inj) 0.4 mg UNSCH PRN IV PUSH SEE LABEL COMMENTS; Start 06/23/17 at 14:45; Stop 07/02/17 at 16:56; Status DC Senna/Docusate Sodium (Georgette-Colace) 1 tab BID PO Last administered on 08:41; Start 06/23/17 at 21:00; Stop 06/27/17 at 15:30; Status DC Magnesium Hydroxide (Milk Of Magnesia Liq) 30 ml Q12H PRN PO Mild constipation Last administered on 06/29/17 09:04; Start 06/23/17 at 14:45; Stop 07/02/17 at 16:56; Status DC Sennosides (Senokot) 17.2 mg Q12H PRN PO Moderate constipation Last administered on 06/29/17 09:04; Start 06/23/17 at 14:45; Stop 07/02/17 at 16: 56; Status DC Bisacodyl (Dulcolax Supp) 10 mg DAILY PRN RECTAL SEVERE CONSITIPATION; Start 06/23/17 at 14:45; Stop 07/02/17 at 16:56; Status DC Lactulose (Lactulose Liq) 30 ml DAILY PRN PO SEVERE CONSITIPATION; Start at 14:45; Stop 07/02/17 at 16:56; Status DC Ceftriaxone Sodium 1000 mg/ Sodium Chloride 100 ml @ 200 mls/hr Q24H IV Last administered on 06/25/17 15:44; Start 06/24/17 at 14:00; Stop 06/25/17 at 16:19 ; Status DC Lactobacillus Acidophilus (Lactinex Pkt) 1 gm TID PO Last administered on 07/02 12:32; Start 06/23/17 at 18:00; Stop 07/02/17 at 16:56; Status DC Heparin Sodium (Porcine) (Heparin Inj) 5,000 units Q12HR SQ Last administered on 06/24/17 08:14; Start 06/23/17 at 21:00; Stop 07/02/17 at 16:56; Status DC Aspirin (Aspirin Chew) 81 mg DAILY CHEW Last administered on 06/24/17 08:12; Start 06/24/17 at 09:00; Stop 07/02/17 at 16:56; Status DC Atorvastatin Calcium (Lipitor) 40 mg HS PO Last administered on 07/01/17 21: 23; Start 06/23/17 at 21:00; Stop 07/02/17 at 16:56; Status DC Duloxetine HCl (Cymbalta Dr) 30 mg DAILY PO Last administered on 07/02/17 08: 48; Start 06/24/17 at 09:00; Stop 07/02/17 at 16:56; Status DC Finasteride (Proscar) 5 mg DAILY PO Last administered on 07/02/17 08:49; Start 06/24/17 at 09:00; Stop 07/02/17 at 16:56; Status DC Gabapentin (Neurontin) 300 mg DAILY PO ; Start 06/24/17 at 09:00; Stop 06/24/17 at 09:00; Status DC Gabapentin (Neurontin) 600 mg HS PO Last administered on 07/01/17 21:23; Start 06/23/17 at 21:00; Stop 07/02/17 at 16:56; Status DC Isosorbide Dinitrate (Isordil) 30 mg HS PO Last administered on 07/01/17 21: 23; Start 06/23/17 at 21:00; Stop 07/02/17 at 16:56; Status DC Pantoprazole Sodium (Protonix) 40 mg DAILY PO Last administered on 06/27/17 08 :41; Start 06/24/17 at 09:00; Stop 06/27/17 at 15:31; Status DC Dextrose (D50w (Vial) Inj) 50 ml UNSCH PRN IV PUSH HYPOGLYCEMIA-SEE COMMENTS Last administered on 07/01/17 05:18; Start 06/23/17 at 15:45; Stop 07/02/17 at 16:56; Status DC Glucagon (Glucagon Inj) 1 mg UNSCH PRN OTHER HYPOGLYCEMIA-SEE COMMENTS Last administered on 07/01/17 12:42; Start 06/23/17 at 15:45; Stop 07/02/17 at 16: 56; Status DC Insulin Aspart (NovoLOG SUPPLEMENTAL SCALE) 1 ACHS SLIDING SCALE SQ Last administered on 07/02/17 12:00; Start 06/23/17 at 17:00; Stop 07/02/17 at 16: 56; Status DC Pneumococcal Polyvalent Vaccine (Pneumovax-23 Inj) 25 mcg ONCE ONCE IM Last administered on 06/24/17 10:52; Start 06/24/17 at 10:00; Stop 06/24/17 at 10:01 ; Status DC Influenza Virus Vaccine (Flu (Quadrivalent) Vaccine Inj) 0.5 ml ONCE ONCE IM Last administered on 06/24/17 10:54; Start 06/24/17 at 10:00; Stop 06/24/17 at 10:01; Status DC Gabapentin (Neurontin) 300 mg TID PO Last administered on 07/02/17 12:32; Start 06/24/17 at 18:00; Stop 07/02/17 at 16:56; Status DC Miscellaneous Medication (ASP Crit: Doc ESBL, MDR A baumannii or P aer) 1 UNSCH X1 PRN .XX PHARMACY DOCUMENTATION; Start 06/25/17 at 16:15; Stop 06/26/17 at 16 :14; Status DC Miscellaneous Medication (ASP Crit: Infectious disease consult) 1 UNSCH X1 PRN .XX PHARMACY DOCUMENTATION; Start 06/25/17 at 16:15; Stop 06/26/17 at 16:14; Status DC Miscellaneous Medication ([facility]) 1 UNSCH X1 PRN XX PHARMACY DOCUMENTATION; Start 06/25/17 at 16:15; Stop 06/26/17 at 16:14; Status DC Ertapenem 500 mg/ Sodium Chloride 100 ml @ 200 mls/hr Q24H IV Last administered on 06/29/17 21:17; Start 06/25/17 at 20:00; Stop 06/30/17 at 10: 43; Status DC Chlorhexidine Gluconate (Hibiclens 4% Top Soln) 1 applic HS TOP Last administered on 06/26/17 20:31; Start 06/26/17 at 21:00; Stop 06/28/17 at 21:01 ; Status DC Lactated Ringer's 1,000 ml @ 30 mls/hr Q24H PRN IV SEE LABEL COMMENTS Last administered on 06/27/17 11:15; Start 06/27/17 at 11:45; Stop 06/30/17 at 11: 44; Status DC Sodium Chloride 500 ml @ 30 mls/hr [id number] PRN IV SEE LABEL COMMENTS; Start at 11:45; Stop 06/30/17 at 11:44; Status DC Metoprolol Tartrate (Lopressor) 25 mg CNC SET UP OPERATOR PRN PO SEE LABEL COMMENTS; Start 06/27/17 at 11:45; Stop 06/30/17 at 11:44; Status DC Povidone Iodine (Betadine 5% Antisepsis Kit) 1 applic CNC SET UP OPERATOR PRN EACH NARE SEE LABEL COMMENTS; Start 06/27/17 at 11:45; Stop 06/30/17 at 11:44; Status DC Chlorhexidine Gluconate (Chlorhexidine 2% Cloth) 3 pack CNC SET UP OPERATOR PRN TOPICAL SEE LABEL COMMENTS; Start 06/27/17 at 11:45; Stop 06/30/17 at 11:44; Status DC Insulin Human Regular (NovoLIN R INJ) See Protocol Table ... CNC SET UP OPERATOR PRN SQ SEE PROTOCOL TABLE; Start 06/27/17 at 11:45; Stop 06/30/17 at 11:44; Status DC Microfibriller Collagen Hemostat (Avitene Bandage) 1 bandage STK-MED ONCE .ROUTE Last administered on 06/27/17 14:30; Start 06/27/17 at 12:21; Stop 06/27/17 at 12:22; Status DC Thrombin (Thrombin Top Soln) 10,000 units STK-MED ONCE .ROUTE Last administered on 06/27/17 14:30; Start 06/27/17 at 12:21; Stop 06/27/17 at 12:22 ; Status DC Cefazolin Sodium/ Dextrose 50 ml @ As Directed STK-MED ONCE .ROUTE ; Start 06/27 at 12:21; Stop 06/27/17 at 12:22; Status DC Gelatin (Gelfoam 100 Top) 1 foam STK-MED ONCE .ROUTE Last administered on 14:30; Start 06/27/17 at 12:21; Stop 06/27/17 at 12:22; Status DC Gentamicin Sulfate (Gentamicin Inj) 240 mg STK-MED ONCE .ROUTE Last administered on 06/27/17 14:30; Start 06/27/17 at 12:21; Stop 06/27/17 at 12:22 ; Status DC Potassium Chloride/Sodium Chloride 1,000 ml @ 100 mls/hr Q10H IV Last administered on 06/27/17 16:30; Start 06/27/17 at 16:00; Stop 06/28/17 at 00:47 ; Status DC IV Flush (NS Flush) 2 ml UNSCH PRN IVF FLUSH AFTER USING IV ACCESS; Start 06/27 at 13:45; Stop 07/02/17 at 16:56; Status DC IV Flush (NS Flush) 2 ml BID IVF Last administered on 07/02/17 08:50; Start 06/27/17 at 21:00; Stop 07/02/17 at 16:56; Status DC Cefazolin Sodium/ Dextrose 50 ml @ 100 mls/hr Q8H IV Last administered on 06/28 14:37; Start 06/27/17 at 22:00; Stop 06/28/17 at 14:29; Status DC Docusate Sodium (Colace) 100 mg BID PO Last administered on 07/02/17 08:49; Start 06/27/17 at 21:00; Stop 07/02/17 at 16:56; Status DC Pantoprazole Sodium (Protonix) 40 mg DAILY PO Last administered on 07/02/17 08:49; Start 06/28/17 at 09:00; Stop 07/02/17 at 16:56; Status DC Acetaminophen/ Hydrocodone Bitart ([place] 10-325 Mg) 1 tab Q4H PRN PO PAIN SCALE 1 TO 5 Last administered on 06/29/17 09:18; Start 06/27/17 at 13:45; Stop 07/02/17 at 16:56; Status DC Acetaminophen/ Hydrocodone Bitart ([place] 10-325 Mg) 2 tab Q4H PRN PO PAIN SCALE 6 TO 10 Last administered on 06/29/17 12:38; Start 06/27/17 at 13:45; Stop 07/02/17 at 16:56; Status DC Morphine Sulfate (Morphine Inj) 2 mg Q2H PRN IV PUSH PAIN SCALE 1 TO 6; Start 06/27/17 at 13:45; Stop 06/27/17 at 15:35; Status DC Morphine Sulfate (Morphine Inj) 4 mg Q2H PRN IV PUSH PAIN SCALE 7 TO 10; Start 06/27/17 at 13:45; Stop 07/02/17 at 16:56; Status DC Acetaminophen (Tylenol) 650 mg Q4H PRN PO TEMPERATURE > 101.5 F; Start at 13:45; Stop 07/02/17 at 16:56; Status DC Bupivacaine HCl/ Epinephrine Bitart (Sensorcaine-Epinephrine Pf 0.5% Inj) 30 ml STK-MED ONCE .ROUTE Last administered on 06/27/17 14:55; Start 06/27/17 at 14: 56; Stop 06/27/17 at 14:57; Status DC Morphine Sulfate (Morphine Inj) 2 mg Q2H PRN IV PUSH PAIN SCALE 1 TO 6; Start 06/27/17 at 15:45; Stop 07/02/17 at 16:56; Status DC Miscellaneous Information ALL NURSING DEPARTME... UNSCH PRN .XX SEE LABEL COMMENTS; Start 06/27/17 at 15:58; Stop 06/28/17 at 15:57; Status DC Albuterol Sulfate (Albuterol Neb) 2.5 mg Q4HR NEB INH Last administered on 19:49; Start 06/27/17 at 20:00; Stop 07/01/17 at 19:59; Status DC Morphine Sulfate (*morphine INJ PERIprocedure ONLY) 8 mg STK-MED ONCE .ROUTE Last administered on 06/27/17 18:48; Start 06/27/17 at 18:48; Stop 06/27/17 at 18:49; Status DC Glimepiride (Amaryl) 2 mg DAILY PO Last administered on 07/02/17 08:49; Start 06/28/17 at 12:00; Stop 07/02/17 at 16:56; Status DC Bisacodyl (Dulcolax Supp) 10 mg ONCE ONCE RECTAL Last administered on 12:37; Start 06/29/17 at 12:30; Stop 06/29/17 at 12:31; Status DC Megestrol Acetate (Megace Liq) 400 mg ONCE ONCE PO Last administered on 12:50; Start 06/30/17 at 12:30; Stop 06/30/17 at 12:31; Status DC Megestrol Acetate (Megace Liq) 400 mg DAILY PO Last administered on 07/02/17 08:49; Start 07/01/17 at 09:00; Stop 07/02/17 at 16:56; Status DC Sodium Chloride 1,000 ml @ 84 mls/hr [id number] IV Last administered on 12:52; Start 06/30/17 at 13:00; Stop 07/01/17 at 00:16; Status DC Ferrous Sulfate (Ferrous Sulfate) 325 mg BID@,17 PO Last administered on 12:32; Start 06/30/17 at 17:00; Stop 07/02/17 at 16:56; Status DC Dextrose/Sodium Chloride 1,000 ml @ 84 mls/hr [id number] IV Last administered on 07/01/17 13:00; Start 07/01/17 at 00:15; Stop 07/01/17 at 23:08; Status DC Dextrose/Sodium Chloride 1,000 ml @ 84 mls/hr [id number] IV Last administered on 07/02/17 12:33; Start 07/01/17 at 12:45; Stop 07/02/17 at 16:56; Status DC (Gunnar Gambino MD) Medical Decision Making MDM Remarks 82 y/o male s/p fall, acute upper extremity weakness CT C spine without acute fractures 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 Murray collar when mobilizing/transfer and during PT Pulmonary.. Continue aggressive pulmonary toilette, nasotracheal suction, and breathing treatments with nebulizers. Renal. monitor closely urine output, BUN and creatinine Endocrine. Monitor serial Acu checks and SSI as needed in detail ID monitor for signs of infection Protonix for stress ulcer prophylaxis The exam, history, and the medical decision-making described in the above note were completed with the assistance of the mid-level provider. I reviewed and agree with the findings presented. I attest that I had a [id number] encounter with the patient on the same day, and personally performed and documented my assessment and findings in the medical record. (Gunnar Gambino MD) Sparkle Dave Jun 29, 2017 13:58 Gunnar Gambino MD Jul 03, 2017 16:40
--- NOTE | 2017-06-29 14:05 | HHI.IDPN ---
Note Infectious Disease Note Patient is somnolent. at bedside. Afebrile. Urine culture repeat pending. PAST MEDICAL HISTORY 1. Neuropathy. 2. Diabetes mellitus. 3. Benign prostatic hypertrophy. 4. Gastroesophageal reflux disease. 5. Hyperlipidemia. 6. History of cervical spine surgery. 7. Cardiac stent placement. 8. Cholecystectomy. 9. Lumbar surgery. ALLERGIES NO KNOWN DRUG ALLERGIES. ANTIBIOTICS Ertapenem. OBJECTIVE: Vital Signs Date Time Temp Pulse Resp B/P (MAP) Pulse Ox O2 Delivery O2 Flow Rate FiO2 06/29/17 13:38 18 06/29/17 10:19 16 06/29/17 08:00 97.4 91 18 128/65 (86) 95 06/29/17 07:29 95 Nasal Cannula 2.00 06/29/17 04:00 99.4 94 20 119/62 (81) 95 06/29/17 00:00 97.7 88 18 106/58 (74) 92 06/28/17 20:40 93 21 06/28/17 20:00 97.0 86 20 145/80 (101) 94 06/28/17 16:35 98.0 70 18 166/75 (105) 100 Laboratory Tests Test 06/28/17 07:43 White Blood Count 7.6 TH/MM3 Red Blood Count 3.01 MIL/MM3 Hemoglobin 9.0 GM/DL Hematocrit 26.8 % Mean Corpuscular Volume 89.1 FL Mean Corpuscular Hemoglobin 29.9 PG Mean Corpuscular Hemoglobin Concent 33.6 % Red Cell Distribution Width 18.2 % Platelet Count 194 TH/MM3 Mean Platelet Volume 8.9 FL Neutrophils (%) (Auto) 88.7 % Lymphocytes (%) (Auto) 6.2 % Monocytes (%) (Auto) 4.5 % Eosinophils (%) (Auto) 0.3 % Basophils (%) (Auto) 0.3 % Neutrophils # (Auto) 6.7 TH/MM3 Lymphocytes # (Auto) 0.5 TH/MM3 Monocytes # (Auto) 0.3 TH/MM3 Eosinophils # (Auto) 0.0 TH/MM3 Basophils # (Auto) 0.0 TH/MM3 CBC Comment DIFF FINAL Differential Comment Laboratory Tests Test 06/28/17 07:43 Blood Urea Nitrogen 26 MG/DL Creatinine 2.10 MG/DL Random Glucose 223 MG/DL Calcium Level 8.2 MG/DL Sodium Level 143 MEQ/L Potassium Level 4.7 MEQ/L Chloride Level 111 MEQ/L Carbon Dioxide Level 24.4 MEQ/L Anion Gap 8 MEQ/L Estimat Glomerular Filtration Rate 30 ML/MIN Microbiology Date/Time Source Procedure Growth Status 06/28/17 18:00 Urine Catheterized Urine Urine Culture - Preliminary NO GROWTH IN 24 HOURS. Resulted PHYSICAL EXAMINATION GENERAL: no acute distress. HEENT: No icterus. Oropharynx moist mucosa. NECK: Supple without adenopathy. LUNGS: Clear breath sounds. HEART: Regular S1-S2. No murmurs, rubs or gallops. GENITOURINARY: The patient has a Medrano catheter which has clear urine. EXTREMITIES: No clubbing or cyanosis or edema. SKIN: No rash. NEUROLOGIC: No gross focal findings. IMPRESSION 1. UTI due to ESBL E-coli. 2. Acute kidney failure. RECOMMENDATIONS Follow the urine culture and if negative at 48 hours stop Ertapenem and patient can be discharged. Chucky Delcid MD Jun 29, 2017 14:05
[2017-06-29] MEDS: ATORVASTATIN 40 MG TAB PO SCH (21:16)
[2017-06-29] MEDS: ISOSORBIDE DINITRATE 10 MG TAB PO SCH (21:16)
[2017-06-29] MEDS: ERTAPENEM INJ 500 MG in SODIUM CHLORIDE 0.9% INJ 100 ML IV SCH (21:17)
[2017-06-30] VITALS (9 sets, daily range): BP systolic 128–161; BP diastolic 60–77; PULSE 77–88; RESP 16–20; TEMP 96.9–99; O2SAT 95–99
[2017-06-30] MEDS: RESP: ALBUTEROL 2.5 MG/3 ML NEB (SCH) INH ×6 (01:22→19:49)
[2017-06-30] MEDS: SODIUM CHLOR 0.9% 1000 ML INJ 1,000 ML IV SCH ×2 (05:01→06:42)
[2017-06-30 07:32] LABS: MEAN CELL VOLUME 89.7 FL (80.0-100.0); MEAN CORPUSCULAR HEMOGLOBIN 29.9 PG (27.0-34.0); MEAN CORPUSCULAR HGB CONC 33.3 % (32.0-36.0); PLATELET COUNT 208 TH/MM3 (150-450); RED CELL DISTRIBUTION WIDTH 18.4 % (11.6-17.2); REVIEW FLAG FINAL
[2017-06-30 07:55] LABS: BICARBONATE 27.6 MEQ/L (21.0-32.0); POTASSIUM 3.9 MEQ/L (3.5-5.1)
[2017-06-30] MEDS: INSULIN ASPART SUPPLEMENTAL SCALE SQ SCH ×4 (08:00→21:00)
[2017-06-30] MEDS: LACTOBACILLUS ACIDOPHILUS 1 GM PACKET PO SCH ×3 (09:00→17:47)
[2017-06-30] MEDS: SODIUM CHLORIDE 0.9% FLUSH 5 ML FLUSH IVF SCH ×2 (09:00→21:00)
[2017-06-30] MEDS: DOCUSATE SODIUM 100 MG CAP PO SCH ×2 (09:41→21:32)
[2017-06-30] MEDS: GABAPENTIN 300 MG CAP PO SCH ×4 (09:42→21:31)
[2017-06-30] MEDS: DULoxetine HCl DR 30 MG CAP PO SCH (09:43)
[2017-06-30] MEDS: GLIMEPIRIDE 2 MG TAB PO SCH (09:44)
[2017-06-30] MEDS: FINASTERIDE 5 MG TAB PO SCH (09:45)
[2017-06-30] MEDS: PANTOPRAZOLE SOD 40 MG DELAYED RELEASE TAB PO SCH (09:46)
[2017-06-30] MEDS ORDERED: DOCU1CAP39 PO (10:40)
[2017-06-30] MEDS ORDERED: METO25TA3 PO (10:40)
--- NOTE | 2017-06-30 10:40 | HHI.DS ---
Discharge Summary Admission Date Jun 23, 2017 at 15:42 Discharge Date: Jul 02, 2017 Admitting Diagnosis UTI, ARF (1) UTI (urinary tract infection) ICD Code: N39.0 - Urinary tract infection, site not specified Status: Acute (2) Acute renal failure ICD Code: N17.9 - Acute kidney failure, unspecified Status: Acute (3) Weakness generalized ICD Code: R53.1 - Weakness Status: Acute (4) Bladder outlet obstruction ICD Code: N32.0 - Bladder-neck obstruction Status: Acute (5) Hematuria ICD Code: R31.9 - Hematuria, unspecified Procedures Cervical stenosis with myelopathy C5-7 posterior cervical laminectomy and foraminotomy by Dr Gambino neurosurgery on 06/27/2017 Brief History - From Admission Patient is a 82-year-old male with past medical history of hyperlipidemia, [place], neuropathy, GERD, diabetes, BPH comes in to the emergency room status post fall. at bedside helps with the history and states that he was trying to transfer from bed to his wheelchair when he tried to get up , tried holding his walker and he fell. Pt states that he experienced weakness in his upper extremities which is new. Patient hit the front of his head. He complained to her of neck pain. Patient denied any chest pain, lightheadedness or dizziness. Denies any burning with urination or increase in urinary frequency. However , states that prior to March he was treated on multiple occasions about 4 times for urinary tract infection until they were able to get cultures and he was appropriately treated. It has been about 3 months since he hasn't been on any antibiotics. denies any prior history of kidney failures or kidney disease. Patient admits to feeling nauseous however he denies any vomiting or fevers or chills. tells me after the fall she noted some fasciculations in his upper extremities and tremors of the upper extremities which is new for him. CBC/BMP: 06/30/17 0620 06/30/17 0620 Significant Findings Laboratory Tests Test 06/28/17 07:43 06/29/17 21:19 06/30/17 06:20 Red Blood Count 3.01 MIL/MM3 (4.50-5.90) 2.90 MIL/MM3 (4.50-5.90) Hemoglobin 9.0 GM/DL (13.0-17.0) 8.7 GM/DL (13.0-17.0) Hematocrit 26.8 % (39.0-51.0) 26.0 % (39.0-51.0) Red Cell Distribution Width 18.2 % (11.6-17.2) 18.4 % (11.6-17.2) Neutrophils (%) (Auto) 88.7 % (16.0-70.0) Lymphocytes (%) (Auto) 6.2 % (9.0-44.0) Lymphocytes # (Auto) 0.5 TH/MM3 (1.0-4.8) Blood Urea Nitrogen 26 MG/DL (7-18) 24 MG/DL (7-18) Creatinine 2.10 MG/DL (0.60-1.30) 1.78 MG/DL (0.60-1.30) Random Glucose 223 MG/DL (74-106) 55 MG/DL (74-106) Calcium Level 8.2 MG/DL (8.5-10.1) 8.4 MG/DL (8.5-10.1) Chloride Level 111 MEQ/L (98-107) 113 MEQ/L (98-107) Estimat Glomerular Filtration Rate 30 ML/MIN (>89) 37 ML/MIN (>89) Sodium Level 147 MEQ/L (136-145) Imaging Last Impressions Cervical Spine X-Ray 06/27/17 0000 Signed Impressions: Service Date/Time: Tuesday, June 27, 2017 14:00 - CONCLUSION: Localization as above. Cisco England MD FACR Cervical Spine MRI 06/25/17 0000 Signed Impressions: Service Date/Time: Sunday, June 25, 2017 14:54 - CONCLUSION: Fusion, C5- C7. Moderate degenerative changes at C3-C4 and C4-C5 with [id number] stenosis. Cisco England MD FACR Renal Ultrasound 06/23/17 0000 Signed Impressions: Service Date/Time: Friday, June 23, 2017 15:47 - CONCLUSION: 1. Mild hydronephrosis. 2. The bladder is abnormal. It is contracted and therefore not well evaluated with Medrano catheter in place however there is a concern for marked bladder wall thickening, possibility of mass is difficult to exclude. 3. Right renal cyst. Luis Garcia MD Head CT 06/23/17 0000 Signed Impressions: Service Date/Time: Friday, June 23, 2017 12:32 - CONCLUSION: No bleed or other acute intracranial abnormality. Chronic white matter changes. Alejandro Millan MD Cervical Spine CT 06/23/17 0000 Signed Impressions: Service Date/Time: Friday, June 23, 2017 12:33 - CONCLUSION: 1. Postsurgical features of anterior plate and screw with interbody bone plug at C5-7 without significant bony union. 2. Advanced multilevel degenerative spondylosis of the cervical spine most prominently at C5-7 with posterior osteophytes resulting in severe bony central canal narrowing. 3. Slight increased anterior disc height at C7-T1, likely degenerative and reflecting adjacent level flexion. Flexion/extension views may be performed if there is clinical concern regarding ligamentous instability. 4. No acute fracture. Wiliam Oropeza MD PE at Discharge Gen; in no acute distress. Appears very weak. CARDIOVASCULAR: Regular rate and rhythm without murmurs, gallops, or rubs. RESPIRATORY: Breath sounds equal bilaterally. No accessory muscle use. GASTROINTESTINAL: Abdomen soft, non-tender, nondistended. MUSCULOSKELETAL: 5 out of 5 upper lung history strength. Sensations intact. Hospital Course This is a 82-year-old male who initially presented with a UTI UTI: Urine culture growing ESBL Escherichia coli. -Appreciate infectious disease recommendations. Continue Invanz. -Repeat urine cultures done on 06/28/2017. If urine cultures are negative for 48 hours then Invanz can be discontinued but if cultures continue to be positive he will need to be discharged on Invanz and urine cultures will have to be follow-up as outpatient. Repeat Urine cultures negative x 48 hrs. Per ID DC invanz and no need of antibiotic at DC Acute renal failure: -Patient has good urine output. Most likely this may be his baseline. Unable to compare. This may be chronic renal insufficiency. Cervical stenosis with myelopathy -s/p C5-7 posterior cervical laminectomy and foraminotomy on 06/27/[address] Gambino -Patient cleared by neurosurgeon to be discharged to rehabilitation facility. Hematuria -Medrano catheter in place. Hematuria is improving. Aspirin on hold. Appreciate urology recommendations. Plan is to discharge the patient with Medrano catheter in place. Decreased PO intake. Decreased appetite. Protein calorie malnutrition. Prealbumin 12 add ensure, consult mma fighter., Added megace. Add nepro. Will do calorie count. Hypoglycemia 2/2 decreased PO intake. as above DVT prophylaxis: SCDs. Heparin on hold secondary to hematuria, surgical intervention. Discharge Planning Urine cultures negative for 48 hrs, DC ertapenem. However patient is not eating and is more disoriented, his BS also was noted in 50s overnight. Consult mma fighter ,m will do calorie count. Added megace. Patient improved, BS better controlled will have Healthy heart diet at DC and hold glipizide at DC. Patient to follow up as OP with PCP and consultants. Discharge to SNF in stable condition. Pt Condition on Discharge: Stable Discharge Disposition: Discharge to SNF Discharge Time: > 30 minutes Discharge Instructions DIET: Follow Instructions for: Heart Healthy Diet Activities you can perform: Regular-No Restrictions Follow up Referrals: Neurosurgery - 1 Week with Gunnar Gambino MD PCP Follow-up - 2-3 Days New Medications: Megestrol ES Liq (Megace ES Liq) 625 Mg/5 Ml Susp 625 MG PO DAILY for Improve Appetite, #240 ML 0 Refills Docusate Sodium (Dok) 100 Mg Cap 100 MG PO BID for Constipation, #60 CAP Metoprolol Tartrate (Metoprolol Tartrate) 25 Mg Tab 25 MG PO CUSTOMER SERVICE ENGINEER PRN for SEE LABEL COMMENTS, #60 TAB Continued Medications: Aspirin (Aspirin Low Dose) 81 Mg Chew 81 MG CHEW DAILY, TAB 0 Refills Atorvastatin (Atorvastatin) 40 Mg Tab 40 MG PO HS for Cholesterol Management, TAB [address] (Cymbalta DR) 30 Mg Capdr 30 MG PO DAILY, CAP 0 Refills Finasteride (Finasteride) 5 Mg Tab 5 MG PO DAILY for Manage Prostate Problems, TAB 0 Refills Do not crush. Gabapentin (Gabapentin) 300 Mg Cap 300 MG PO DAILY, CAP 0 Refills Gabapentin (Gabapentin) 600 Mg Tab 600 MG PO HS, TAB 0 Refills Isosorbide Dinitrate (Isosorbide Dinitrate) 20 Mg Tab 30 MG PO HS, TAB 0 Refills Pantoprazole (Pantoprazole) 40 Mg Tab 40 MG PO DAILY for Reflux, TAB 0 Refills Discontinued Medications: Glimepiride (Glimepiride) 2 Mg Tab 2 MG PO DAILY for Blood Sugar Management, TAB 0 Refills Take with breakfast or first main meal Angelic Schneider MD Jun 30, 2017 10:40
--- NOTE | 2017-06-30 11:15 | HHI.NSPN ---
History Interval History This is a 82-year-old male with past medical history of hyperlipidemia, [place], neuropathy, GERD, diabetes, BPH comes in to the emergency room status post fall. at bedside helps with the history and states that he was trying to transfer from bed to his wheelchair when he tried to get up , tried holding his walker and he fell. Pt states that he experienced weakness in his upper extremities which is new. Patient hit the front of his head. He complained to her of neck pain. Patient denied any chest pain, lightheadedness or dizziness. Denies any burning with urination or increase in urinary frequency. However , states that prior to March he was treated on multiple occasions about 4 times for urinary tract infection until they were able to get cultures and he was appropriately treated. It has been about 3 months since he hasn't been on any antibiotics. He denies any prior history of kidney failures or kidney disease. Reports feeling nauseous however he denies any vomiting or fevers or chills. tells me after the fall she noted some fasciculations in his upper extremities and tremors of the upper extremities which is new for him. CT C spine showed stenosis. Neurosurgical consultation was requested 06/25: patient seen this morning during rounds. MRI C spine ordered - pending. no changes in his neuro symptoms. 06/26: dw more in detail. patient had ACDF July [address] Monsalve, orthopedic surgeon. Patient did well for a while following surgery but then was becoming progressively weak in his legs again, and has had falls at home as his legs give out. this most recent fall caused more weakness in his extremities. 06/28: s/p cervical decompressive laminectomy, doing well, c/o ana collar not comfortable. has improvement in his upper extremity dysesthesias 06/29: being fed breakfast, still repots arms and hands are weak. no new complaints. 06/30: Patient remains awake and appears alert. He apparently is somewhat confused but has no complaints Exam Results Vital Signs Date Time Temp Pulse Resp B/P (MAP) Pulse Ox O2 Delivery O2 Flow Rate FiO2 06/30/17 09:11 97 06/30/17 08:00 99.0 78 17 161/77 (105) 06/30/17 01:26 Nasal Cannula 1.50 06/28/17 20:40 21 Intake and Output 06/30/17 06/30/17 07/01/17 08:00 16:00 00:00 Intake Total 1000 ml 240 ml Output Total 720 ml Balance 280 ml 240 ml Physical Examination Neurological: Patient alert and following commands. Moving all 4 extremities with right hemiparesis arm greater than leg. Posterior cervical incisional dressing is dry and intact. Lab, Micro, Other Results Laboratory Tests Test 06/29/17 21:19 06/30/17 06:20 Random Glucose 55 78 White Blood Count 10.0 Red Blood Count 2.90 Hemoglobin 8.7 Hematocrit 26.0 Mean Corpuscular Volume 89.7 Mean Corpuscular Hemoglobin 29.9 Mean Corpuscular Hemoglobin Concent 33.3 Red Cell Distribution Width 18.4 Platelet Count 208 Mean Platelet Volume 8.4 Blood Urea Nitrogen 24 Creatinine 1.78 Calcium Level 8.4 Sodium Level 147 Potassium Level 3.9 Chloride Level 113 Carbon Dioxide Level 27.6 Anion Gap 6 Estimat Glomerular Filtration Rate 37 Date/Time Source Procedure Growth Status 06/28/17 18:00 Urine Catheterized Urine Urine Culture - Final NO GROWTH IN 48 HOURS. Complete Medical Decision Making Impression and Plan Assessment: Stable postop course status post cervical laminectomy. Plan: Continue current management and therapy. Raheel Angeles MD Jun 30, 2017 11:15
--- NOTE | 2017-06-30 11:42 | HHI.PR ---
Subjective Remarks Patient in bed, appears ill. Patient says he is not eating as he has decreased appetite. BS noted in 50s overnight. Patient also more sleepy in the morning. NO ches pain or sob No n/v/d/c. Has no fever or chills. Feels very tired. Objective Vitals Vital Signs Date Time Temp Pulse Resp B/P (MAP) Pulse Ox O2 Delivery O2 Flow Rate FiO2 06/30/17 09:11 97 06/30/17 08:00 99.0 78 17 161/77 (105) 95 06/30/17 04:00 97.3 88 20 142/67 (92) 97 06/30/17 01:26 95 Nasal Cannula 1.50 06/30/17 00:00 98.1 85 20 128/60 (82) 96 06/29/17 21:25 87 Nasal Cannula 2.00 06/29/17 20:00 98.2 83 20 146/67 (93) 94 06/29/17 16:00 97.9 80 18 112/59 (76) 93 06/29/17 13:38 18 06/29/17 12:00 98.4 89 18 131/63 (85) 92 I/O 06/29/17 06/29/17 06/29/17 06/30/17 06/30/17 06/30/17 07:00 15:00 23:00 07:00 15:00 23:00 Intake Total 480 ml 1100 ml 240 ml Output Total 1200 ml 1200 ml 625 ml 400 ml 320 ml Balance -1200 ml -720 ml -625 ml 700 ml -80 ml Intake Oral 480 ml 240 ml IV Total 1100 ml Output Urine Total 1200 ml 1200 ml 625 ml 400 ml 320 ml # Bowel Movements 1 Result Diagram: 06/30/17 0620 06/30/17 0620 Imaging Last Impressions Cervical Spine X-Ray 06/27/17 0000 Signed Impressions: Service Date/Time: Tuesday, June 27, 2017 14:00 - CONCLUSION: Localization as above. Cisco England MD FACR Cervical Spine MRI 06/25/17 0000 Signed Impressions: Service Date/Time: Sunday, June 25, 2017 14:54 - CONCLUSION: Fusion, C5- C7. Moderate degenerative changes at C3-C4 and C4-C5 with [id number] stenosis. Cisco England MD FACR Renal Ultrasound 06/23/17 Signed Impressions: Service Date/Time: Friday, June 23, 2017 15:47 - CONCLUSION: 1. Mild hydronephrosis. 2. The bladder is abnormal. It is contracted and therefore not well evaluated with Medrano catheter in place however there is a concern for marked bladder wall thickening, possibility of mass is difficult to exclude. 3. Right renal cyst. Luis Garcia MD Head CT 06/23/17 Signed Impressions: Service Date/Time: Friday, June 23, 2017 12:32 - CONCLUSION: No bleed or other acute intracranial abnormality. Chronic white matter changes. Alejandro Millan MD Cervical Spine CT 06/23/17 Signed Impressions: Service Date/Time: Friday, June 23, 2017 12:33 - CONCLUSION: 1. Postsurgical features of anterior plate and screw with interbody bone plug at C5-7 without significant bony union. 2. Advanced multilevel degenerative spondylosis of the cervical spine most prominently at C5-7 with posterior osteophytes resulting in severe bony central canal narrowing. 3. Slight increased anterior disc height at C7-T1, likely degenerative and reflecting adjacent level flexion. Flexion/extension views may be performed if there is clinical concern regarding ligamentous instability. 4. No acute fracture. Wiliam Oropeza MD Objective Remarks GENERAL: Elderly male, cachectic appears chronically ill, oriented by name and only. CARDIOVASCULAR: Regular rate and rhythm. RESPIRATORY: No accessory muscle use. Clear to auscultation. Breath sounds equal bilaterally. GASTROINTESTINAL: Abdomen soft, non-tender, nondistended. Hepatic and splenic margins not palpable. MUSCULOSKELETAL: Extremities without clubbing, cyanosis, or edema. No obvious deformities. NEUROLOGICAL: Awake and alert. No obvious cranial nerve deficits. Motor grossly within normal limits. Five out of 5 muscle strength in the arms and legs. Normal speech. PSYCHIATRIC: Appropriate mood and affect; insight and judgment normal. Procedures None A/P Problem List: (1) UTI (urinary tract infection) ICD Code: N39.0 - Urinary tract infection, site not specified Status: Acute (2) Acute renal failure ICD Code: N17.9 - Acute kidney failure, unspecified Status: Acute (3) Weakness generalized ICD Code: R53.1 - Weakness Status: Acute (4) Bladder outlet obstruction ICD Code: N32.0 - Bladder-neck obstruction Status: Acute (5) Hematuria ICD Code: R31.9 - Hematuria, unspecified Assessment and Plan This is a 82-year-old male who initially presented with a UTI UTI: Urine culture growing ESBL Escherichia coli. -Appreciate infectious disease recommendations. Continue Invanz. -Repeat urine cultures done on 06/28/2017. If urine cultures are negative for 48 hours then Invanz can be discontinued but if cultures continue to be positive he will need to be discharged on Invanz and urine cultures will have to be follow-up as outpatient. Acute renal failure: -Patient has good urine output. Most likely this may be his baseline. Unable to compare. This may be chronic renal insufficiency. Cervical stenosis with myelopathy -s/p C5-7 posterior cervical laminectomy and foraminotomy on 06/27/2017 -Patient cleared by neurosurgeon to be discharged to rehabilitation facility. Hematuria -Medrano catheter in place. Hematuria is improving. Aspirin on hold. Appreciate urology recommendations. Plan is to discharge the patient with Medrano catheter in place. Decreased PO intake. Decreased appetite. Protein calorie malnutrition. Check prealbumin, add ensure, consult grid molder., Add megace. Hypoglycemia 2/2 decreased PO intake. as above DVT prophylaxis: SCDs. Heparin on hold secondary to hematuria, surgical intervention. Discharge Planning Urine cultures negative for 48 hrs, DC ertapenem. However patient is not eating and is more disoriented, his BS also was noted in 50s overnight. Plan to discharge to SNF when BS better and when improved. . Problem Qualifiers (1) UTI (urinary tract infection): Qualified Codes: N39.0 - Urinary tract infection, site not specified; R31.9 - Hematuria, unspecified (2) Acute renal failure: Qualified Codes: N17.9 - Acute kidney failure, unspecified (3) Hematuria: Qualified Codes: R31.0 - Gross hematuria Angelic Schneider MD Jun 30, 2017 11:42
[2017-06-30] MEDS ORDERED: MEGESTROL ACETATE SUSP 400 MG/10 ML CUP PO ONE (12:30)
[2017-06-30] MEDS ORDERED: SODIUM CHLOR 0.45% 1000 ML INJ 1,000 ML IV SCH (13:00)
[2017-06-30 17:25] LABS: TRANSFERRIN IRON PROFILE 116 MG/DL (200-360)
[2017-06-30] MEDS: FERROUS SULFATE 325 MG (65 MG ELEMENTAL IRON) TAB PO SCH (17:47)
[2017-06-30 17:50] LABS: FERRITIN 356 NG/ML (26-388)
[2017-06-30] MEDS: ISOSORBIDE DINITRATE 10 MG TAB PO SCH (21:31)
[2017-06-30] MEDS: ATORVASTATIN 40 MG TAB PO SCH (21:32)
[2017-07-01] VITALS (9 sets, daily range): BP systolic 124–145; BP diastolic 58–72; PULSE 63–75; RESP 16–19; TEMP 96.8–98; O2SAT 96–100
[2017-07-01] MEDS: DEXTROSE 5%-NACL 0.225% INJ 1,000 ML IV SCH ×2 (00:38→13:00)
[2017-07-01] MEDS: DEXTROSE 50% IN WATER 50 ML VIAL(D50) IV PUSH PRN ×2 (01:16→05:18)
[2017-07-01] MEDS: RESP: ALBUTEROL 2.5 MG/3 ML NEB (SCH) INH ×6 (01:26→19:49)
[2017-07-01 06:04] LABS: AUTOMATED NEUTROPHIL # 5.1 TH/MM3 (1.8-7.7); BASOPHIL % 0.5 % (0.0-2.0); EOSINOPHIL # 0.3 TH/MM3 (0-0.4); EOSINOPHIL % 4.7 % (0.0-4.0); HEMATOCRIT 24.3 % (39.0-51.0); HEMO FLAGS DIFF FINAL; LYMPH % 18.6 % (9.0-44.0); LYMPHOCYTE # 1.3 TH/MM3 (1.0-4.8); MEAN CELL VOLUME 88.9 FL (80.0-100.0); MEAN CORPUSCULAR HEMOGLOBIN 30.9 PG (27.0-34.0); MEAN CORPUSCULAR HGB CONC 34.7 % (32.0-36.0); MONO % 5.3 % (0.0-8.0); NEUT % 70.9 % (16.0-70.0); PLATELET COUNT 174 TH/MM3 (150-450); RED BLOOD COUNT 2.73 MIL/MM3 (4.50-5.90); RED CELL DISTRIBUTION WIDTH 17.9 % (11.6-17.2); WHITE BLOOD COUNT 7.2 TH/MM3 (4.0-11.0)
[2017-07-01 06:58] LABS: BICARBONATE 28.6 MEQ/L (21.0-32.0); MAGNESIUM 1.8 MG/DL (1.5-2.5); POTASSIUM 3.6 MEQ/L (3.5-5.1)
[2017-07-01] MEDS: INSULIN ASPART SUPPLEMENTAL SCALE SQ SCH ×4 (08:00→21:00)
[2017-07-01] MEDS: DULoxetine HCl DR 30 MG CAP PO SCH (08:49)
[2017-07-01] MEDS: DOCUSATE SODIUM 100 MG CAP PO SCH ×2 (08:49→21:22)
[2017-07-01] MEDS: FINASTERIDE 5 MG TAB PO SCH (08:49)
[2017-07-01] MEDS: PANTOPRAZOLE SOD 40 MG DELAYED RELEASE TAB PO SCH (08:49)
[2017-07-01] MEDS: GABAPENTIN 300 MG CAP PO SCH ×4 (08:49→21:23)
[2017-07-01] MEDS: GLIMEPIRIDE 2 MG TAB PO SCH (08:49)
[2017-07-01] MEDS: MEGESTROL ACETATE SUSP 400 MG/10 ML CUP PO SCH (08:49)
[2017-07-01] MEDS: LACTOBACILLUS ACIDOPHILUS 1 GM PACKET PO SCH ×3 (08:49→18:32)
[2017-07-01] MEDS: SODIUM CHLORIDE 0.9% FLUSH 5 ML FLUSH IVF SCH ×2 (08:50→21:00)
--- NOTE | 2017-07-01 10:50 | HHI.NSPN ---
History Interval History This is a 82-year-old male with past medical history of hyperlipidemia, [place], neuropathy, GERD, diabetes, BPH comes in to the emergency room status post fall. at bedside helps with the history and states that he was trying to transfer from bed to his wheelchair when he tried to get up , tried holding his walker and he fell. Pt states that he experienced weakness in his upper extremities which is new. Patient hit the front of his head. He complained to her of neck pain. Patient denied any chest pain, lightheadedness or dizziness. Denies any burning with urination or increase in urinary frequency. However , states that prior to March he was treated on multiple occasions about 4 times for urinary tract infection until they were able to get cultures and he was appropriately treated. It has been about 3 months since he hasn't been on any antibiotics. He denies any prior history of kidney failures or kidney disease. Reports feeling nauseous however he denies any vomiting or fevers or chills. tells me after the fall she noted some fasciculations in his upper extremities and tremors of the upper extremities which is new for him. CT C spine showed stenosis. Neurosurgical consultation was requested 06/25: patient seen this morning during rounds. MRI C spine ordered - pending. no changes in his neuro symptoms. 06/26: dw more in detail. patient had ACDF July [address] Monsalve, orthopedic surgeon. Patient did well for a while following surgery but then was becoming progressively weak in his legs again, and has had falls at home as his legs give out. this most recent fall caused more weakness in his extremities. 06/28: s/p cervical decompressive laminectomy, doing well, c/o ana collar not comfortable. has improvement in his upper extremity dysesthesias 06/29: being fed breakfast, still repots arms and hands are weak. no new complaints. 06/30: Patient remains awake and appears alert. He apparently is somewhat confused but has no complaints 07/01: Patient much more alert and awake this morning. Family notes decreased confusion. Exam Results Vital Signs Date Time Temp Pulse Resp B/P (MAP) Pulse Ox O2 Delivery O2 Flow Rate FiO2 07/01/17 08:00 97.6 68 16 136/67 (90) 100 07/01/17 07:50 Nasal Cannula 2.00 06/28/17 20:40 21 Intake and Output 07/01/17 07/01/17 07/02/17 08:00 16:00 00:00 Output Total 1700 ml Balance -1700 ml Physical Examination Neurological: Patient alert and following commands. Moving all 4 extremities 5- / 5 upper extremity and 4/5 strength in the legs bilaterally. Posterior cervical incisional dressing is dry and intact. Lab, Micro, Other Results Laboratory Tests Test 06/30/17 12:44 07/01/17 05:47 Prealbumin 12 White Blood Count 7.2 Red Blood Count 2.73 Hemoglobin 8.4 Hematocrit 24.3 Mean Corpuscular Volume 88.9 Mean Corpuscular Hemoglobin 30.9 Mean Corpuscular Hemoglobin Concent 34.7 Red Cell Distribution Width 17.9 Platelet Count 174 Mean Platelet Volume 8.3 Neutrophils (%) (Auto) 70.9 Lymphocytes (%) (Auto) 18.6 Monocytes (%) (Auto) 5.3 Eosinophils (%) (Auto) 4.7 Basophils (%) (Auto) 0.5 Neutrophils # (Auto) 5.1 Lymphocytes # (Auto) 1.3 Monocytes # (Auto) 0.4 Eosinophils # (Auto) 0.3 Basophils # (Auto) 0.0 CBC Comment DIFF FINAL Differential Comment Blood Urea Nitrogen 21 Creatinine 1.51 Random Glucose 145 Calcium Level 8.2 Magnesium Level 1.8 Sodium Level 140 Potassium Level 3.6 Chloride Level 105 Carbon Dioxide Level 28.6 Anion Gap 6 Estimat Glomerular Filtration Rate 44 Date/Time Source Procedure Growth Status 06/28/17 18:00 Urine Catheterized Urine Urine Culture - Final NO GROWTH IN 48 HOURS. Complete Medical Decision Making Impression and Plan Assessment: Stable postop course status post cervical laminectomy. Plan: Continue current management and therapy. Raheel Angeles MD Jul 01, 2017 10:50
--- NOTE | 2017-07-01 11:44 | HHI.PR ---
Subjective Remarks Patient is not eating and his BS is noted low. He did received dextrose overnight. Patiet is sleepy. He did not eat breakfast says she is not hungry. No fever or chills.No n/v/d/c. Feels tired. Objective Vitals Vital Signs Date Time Temp Pulse Resp B/P (MAP) Pulse Ox O2 Delivery O2 Flow Rate FiO2 07/01/17 08:00 97.6 68 16 136/67 (90) 100 07/01/17 07:50 98 Nasal Cannula 2.00 07/01/17 05:40 97.0 63 17 138/69 (92) 100 07/01/17 01:00 98.0 75 19 136/68 (90) 100 06/30/17 20:56 96.9 77 20 150/71 (97) 99 06/30/17 16:11 99 Nasal Cannula 2.50 06/30/17 16:00 97.6 78 18 149/75 (99) 98 06/30/17 12:00 98.4 80 16 136/71 (92) 99 I/O 06/30/17 06/30/17 06/30/17 07/01/17 07/01/17 07/01/17 07:00 15:00 23:00 07:00 15:00 23:00 Intake Total 1100 ml 1080 ml Output Total 400 ml 920 ml 425 ml 1700 ml 700 ml Balance 700 ml 160 ml -425 ml -1700 ml -700 ml Intake Oral 1080 ml IV Total 1100 ml Output Urine Total 400 ml 920 ml 425 ml 1700 ml 700 ml # Bowel Movements 1 Result Diagram: 07/01/17 0547 07/01/17 0547 Imaging Last Impressions Cervical Spine X-Ray 06/27/17 0000 Signed Impressions: Service Date/Time: Tuesday, June 27, 2017 14:00 - CONCLUSION: Localization as above. Cisco England MD FACR Cervical Spine MRI 06/25/17 0000 Signed Impressions: Service Date/Time: Sunday, June 25, 2017 14:54 - CONCLUSION: Fusion, C5- C7. Moderate degenerative changes at C3-C4 and C4-C5 with [id number] stenosis. Cisco England MD FACR Renal Ultrasound 06/23/17 0000 Signed Impressions: Service Date/Time: Friday, June 23, 2017 15:47 - CONCLUSION: 1. Mild hydronephrosis. 2. The bladder is abnormal. It is contracted and therefore not well evaluated with Medrano catheter in place however there is a concern for marked bladder wall thickening, possibility of mass is difficult to exclude. 3. Right renal cyst. Luis Garcia MD Head CT 06/23/17 0000 Signed Impressions: Service Date/Time: Friday, June 23, 2017 12:32 - CONCLUSION: No bleed or other acute intracranial abnormality. Chronic white matter changes. Alejandro Millan MD Cervical Spine CT 06/23/17 0000 Signed Impressions: Service Date/Time: Friday, June 23, 2017 12:33 - CONCLUSION: 1. Postsurgical features of anterior plate and screw with interbody bone plug at C5-7 without significant bony union. 2. Advanced multilevel degenerative spondylosis of the cervical spine most prominently at C5-7 with posterior osteophytes resulting in severe bony central canal narrowing. 3. Slight increased anterior disc height at C7-T1, likely degenerative and reflecting adjacent level flexion. Flexion/extension views may be performed if there is clinical concern regarding ligamentous instability. 4. No acute fracture. Wiliam Oropeza MD Objective Remarks GENERAL: Elderly male, cachectic appears chronically ill, oriented by name and only. CARDIOVASCULAR: Regular rate and rhythm. RESPIRATORY: No accessory muscle use. Clear to auscultation. Breath sounds equal bilaterally. GASTROINTESTINAL: Abdomen soft, non-tender, nondistended. Hepatic and splenic margins not palpable. MUSCULOSKELETAL: Extremities without clubbing, cyanosis, or edema. No obvious deformities. NEUROLOGICAL: Awake and alert. No obvious cranial nerve deficits. Motor grossly within normal limits. Five out of 5 muscle strength in the arms and legs. Normal speech. PSYCHIATRIC: Appropriate mood and affect; insight and judgment normal. Procedures None A/P Problem List: (1) UTI (urinary tract infection) ICD Code: N39.0 - Urinary tract infection, site not specified Status: Acute (2) Acute renal failure ICD Code: N17.9 - Acute kidney failure, unspecified Status: Acute (3) Weakness generalized ICD Code: R53.1 - Weakness Status: Acute (4) Bladder outlet obstruction ICD Code: N32.0 - Bladder-neck obstruction Status: Acute (5) Hematuria ICD Code: R31.9 - Hematuria, unspecified Assessment and Plan This is a 82-year-old male who initially presented with a UTI UTI: Urine culture growing ESBL Escherichia coli. -Appreciate infectious disease recommendations. Continue Invanz. -Repeat urine cultures done on 06/28/2017. If urine cultures are negative for 48 hours then Invanz can be discontinued but if cultures continue to be positive he will need to be discharged on Invanz and urine cultures will have to be follow-up as outpatient. Repeat Urine cultures negative x 48 hrs. Per ID DC invanz and no need of antibiotic at [place] Acute renal failure: -Patient has good urine output. Most likely this may be his baseline. Unable to compare. This may be chronic renal insufficiency. Cervical stenosis with myelopathy -s/p C5-7 posterior cervical laminectomy and foraminotomy on 06/27/2017 -Patient cleared by neurosurgeon to be discharged to rehabilitation facility. Hematuria -Medrano catheter in place. Hematuria is improving. Aspirin on hold. Appreciate urology recommendations. Plan is to discharge the patient with Medrano catheter in place. Decreased PO intake. Decreased appetite. Protein calorie malnutrition. Prealbumin 12 add ensure, consult manager massage department., Added megace. Add nepro. Will do calorie count. Hypoglycemia 2/2 decreased PO intake. as above DVT prophylaxis: SCDs. Heparin on hold secondary to hematuria, surgical intervention. Discharge Planning Urine cultures negative for 48 hrs, [place] ertapenem. However patient is not eating and is more disoriented, his BS also was noted in 50s overnight. Consult manager massage department ,m will do calorie count. Added megace. Plan to discharge to SNF when BS better and when improved. . Problem Qualifiers (1) UTI (urinary tract infection): Qualified Codes: N39.0 - Urinary tract infection, site not specified; R31.9 - Hematuria, unspecified (2) Acute renal failure: Qualified Codes: N17.9 - Acute kidney failure, unspecified (3) Hematuria: Qualified Codes: R31.0 - Gross hematuria Angelic Schneider MD Jul 01, 2017 11:44
[2017-07-01] MEDS: FERROUS SULFATE 325 MG (65 MG ELEMENTAL IRON) TAB PO SCH ×2 (12:00→18:32)
[2017-07-01] MEDS: DEXT 5%-NACL 0.9% 1000 ML INJ 1,000 ML IV SCH ×2 (12:45→21:22)
[2017-07-01] MEDS: ISOSORBIDE DINITRATE 10 MG TAB PO SCH (21:23)
[2017-07-01] MEDS: ATORVASTATIN 40 MG TAB PO SCH (21:23)
[2017-07-02 01:04] VITALS: BP 122/71; PULSE 76; RESP 19; TEMP 98.5; O2SAT 98
[2017-07-02 06:07] VITALS: BP 112/58; PULSE 73; RESP 20; TEMP 96.1; O2SAT 96
[2017-07-02 08:00] VITALS: BP 139/64; PULSE 66; RESP 20; TEMP 96.4; O2SAT 100
[2017-07-02] MEDS: INSULIN ASPART SUPPLEMENTAL SCALE SQ SCH ×2 (08:00→12:00)
[2017-07-02 08:13] VITALS: O2SAT 98
[2017-07-02] MEDS: GABAPENTIN 300 MG CAP PO SCH ×2 (08:48→12:32)
[2017-07-02] MEDS: DULoxetine HCl DR 30 MG CAP PO SCH (08:48)
[2017-07-02] MEDS: PANTOPRAZOLE SOD 40 MG DELAYED RELEASE TAB PO SCH (08:49)
[2017-07-02] MEDS: GLIMEPIRIDE 2 MG TAB PO SCH (08:49)
[2017-07-02] MEDS: FINASTERIDE 5 MG TAB PO SCH (08:49)
[2017-07-02] MEDS: MEGESTROL ACETATE SUSP 400 MG/10 ML CUP PO SCH (08:49)
[2017-07-02] MEDS: DOCUSATE SODIUM 100 MG CAP PO SCH (08:49)
[2017-07-02] MEDS: SODIUM CHLORIDE 0.9% FLUSH 5 ML FLUSH IVF SCH (08:50)
[2017-07-02] MEDS: LACTOBACILLUS ACIDOPHILUS 1 GM PACKET PO SCH ×2 (08:50→12:32)
[2017-07-02] MEDS ORDERED: MEGASUS2 PO (09:11)
--- NOTE | 2017-07-02 11:11 | HHI.PR ---
Subjective Remarks More awake and alert today. at bedside. Eating better appetite improved significantly. BS is better controlled will hold meds for diabetes at DC. Plan to go to snf. CM ff for DC plan. No n/v/d/c. Objective Vitals Vital Signs Date Time Temp Pulse Resp B/P (MAP) Pulse Ox O2 Delivery O2 Flow Rate FiO2 07/02/17 08:13 98 Nasal Cannula 2.00 07/02/17 08:00 96.4 66 20 139/64 (89) 100 07/02/17 06:07 96.1 73 20 112/58 (76) 96 07/02/17 01:04 98.5 76 19 122/71 (88) 98 07/01/17 21:17 96.8 70 19 129/65 (86) 99 07/01/17 18:28 96 Nasal Cannula 2.00 07/01/17 16:00 97.7 68 18 145/72 (96) 96 07/01/17 15:55 98 Nasal Cannula 2.00 07/01/17 12:00 97.8 64 18 124/58 (80) 96 I/O 07/01/17 07/01/17 07/01/17 07/02/17 07/02/17 07/02/17 07:00 15:00 23:00 07:00 15:00 23:00 Intake Total 1100 ml Output Total 1700 ml 700 ml 1200 ml 3200 ml Balance -1700 ml -700 ml -1200 ml -2100 ml IV Total 1100 ml Output Urine Total 1700 ml 700 ml 1200 ml 3200 ml Result Diagram: 07/01/17 0547 07/01/17 1251 Imaging Last Impressions Cervical Spine X-Ray 06/27/17 0000 Signed Impressions: Service Date/Time: Tuesday, June 27, 2017 14:00 - CONCLUSION: Localization as above. Cisco England MD FACR Cervical Spine MRI 06/25/17 0000 Signed Impressions: Service Date/Time: Sunday, June 25, 2017 14:54 - CONCLUSION: Fusion, C5- C7. Moderate degenerative changes at C3-C4 and C4-C5 with [id number] stenosis. Cisco England MD FACR Renal Ultrasound 06/23/17 0000 Signed Impressions: Service Date/Time: Friday, June 23, 2017 15:47 - CONCLUSION: 1. Mild hydronephrosis. 2. The bladder is abnormal. It is contracted and therefore not well evaluated with Medrano catheter in place however there is a concern for marked bladder wall thickening, possibility of mass is difficult to exclude. 3. Right renal cyst. Luis Garcia MD Head CT 06/23/17 0000 Signed Impressions: Service Date/Time: Friday, June 23, 2017 12:32 - CONCLUSION: No bleed or other acute intracranial abnormality. Chronic white matter changes. Alejandro Millan MD Cervical Spine CT 06/23/17 0000 Signed Impressions: Service Date/Time: Friday, June 23, 2017 12:33 - CONCLUSION: 1. Postsurgical features of anterior plate and screw with interbody bone plug at C5-7 without significant bony union. 2. Advanced multilevel degenerative spondylosis of the cervical spine most prominently at C5-7 with posterior osteophytes resulting in severe bony central canal narrowing. 3. Slight increased anterior disc height at C7-T1, likely degenerative and reflecting adjacent level flexion. Flexion/extension views may be performed if there is clinical concern regarding ligamentous instability. 4. No acute fracture. Wiliam Oropeza MD Objective Remarks GENERAL: Elderly male, cachectic appears chronically ill, oriented by name and only. CARDIOVASCULAR: Regular rate and rhythm. RESPIRATORY: No accessory muscle use. Clear to auscultation. Breath sounds equal bilaterally. GASTROINTESTINAL: Abdomen soft, non-tender, nondistended. Hepatic and splenic margins not palpable. MUSCULOSKELETAL: Extremities without clubbing, cyanosis, or edema. No obvious deformities. NEUROLOGICAL: Awake and alert. No obvious cranial nerve deficits. Motor grossly within normal limits. Five out of 5 muscle strength in the arms and legs. Normal speech. PSYCHIATRIC: Appropriate mood and affect; insight and judgment normal. Procedures None A/P Problem List: (1) UTI (urinary tract infection) ICD Code: N39.0 - Urinary tract infection, site not specified Status: Acute (2) Acute renal failure ICD Code: N17.9 - Acute kidney failure, unspecified Status: Acute (3) Weakness generalized ICD Code: R53.1 - Weakness Status: Acute (4) Bladder outlet obstruction ICD Code: N32.0 - Bladder-neck obstruction Status: Acute (5) Hematuria ICD Code: R31.9 - Hematuria, unspecified Assessment and Plan This is a 82-year-old male who initially presented with a UTI UTI: Urine culture growing ESBL Escherichia coli. -Appreciate infectious disease recommendations. Continue Invanz. -Repeat urine cultures done on 06/28/2017. If urine cultures are negative for 48 hours then Invanz can be discontinued but if cultures continue to be positive he will need to be discharged on Invanz and urine cultures will have to be follow-up as outpatient. Repeat Urine cultures negative x 48 hrs. Per ID DC invanz and no need of antibiotic at [place] Acute renal failure: -Patient has good urine output. Most likely this may be his baseline. Unable to compare. This may be chronic renal insufficiency. Cervical stenosis with myelopathy -s/p C5-7 posterior cervical laminectomy and foraminotomy on 06/27/2017 -Patient cleared by neurosurgeon to be discharged to rehabilitation facility. Hematuria -Medrano catheter in place. Hematuria is improving. Aspirin on hold. Appreciate urology recommendations. Plan is to discharge the patient with Medrano catheter in place. Decreased PO intake. Decreased appetite. Protein calorie malnutrition. Prealbumin 12 add ensure, consult technology project manager., Added megace. Add nepro. Will do calorie count. Hypoglycemia 2/2 decreased PO intake. as above DVT prophylaxis: SCDs. Heparin on hold secondary to hematuria, surgical intervention. Discharge Planning Urine cultures negative for 48 hrs, [place] ertapenem. However patient is not eating and is more disoriented, his BS also was noted in 50s overnight. Consult technology project manager ,m will do calorie count. Added megace. Plan to discharge to SNF today Problem Qualifiers (1) UTI (urinary tract infection): Qualified Codes: N39.0 - Urinary tract infection, site not specified; R31.9 - Hematuria, unspecified (2) Acute renal failure: Qualified Codes: N17.9 - Acute kidney failure, unspecified (3) Hematuria: Qualified Codes: R31.0 - Gross hematuria Angelic Schneider MD Jul 02, 2017 11:11
[2017-07-02 11:49] VITALS: BP 125/81; PULSE 70; RESP 20; TEMP 96.7; O2SAT 100
[2017-07-02] MEDS: FERROUS SULFATE 325 MG (65 MG ELEMENTAL IRON) TAB PO SCH (12:32)
[2017-07-02] MEDS: DEXT 5%-NACL 0.9% 1000 ML INJ 1,000 ML IV SCH (12:33)
[2017-07-02] MEDS ORDERED: FERR325T20 PO (14:09)
[2017-07-02 16:27] VITALS: BP 138/70; PULSE 73; RESP 20; TEMP 98; O2SAT 100
== END 2017-07-02 16:55 | DRG 519 ==
LOC: NEPE 11:40 → EDBD 11:40 → NEDA 14:44 → OBSVTOIN 15:42 → N07B 16:30 → N05B 06-27 15:44
PROVIDERS: ADMIT Hospitalist; ATTEND Hospitalist
PROC: 0T9B70Z Drainage of Bladder with Drainage Device, Via Natural or Artificial Opening (ICD-10-PCS; 2017-06-23)
PROC: 00NW0ZZ Release Cervical Spinal Cord, Open Approach (ICD-10-PCS; principal; 2017-06-27 12:37)
DX: M47.12 Other spondylosis with myelopathy, cervical region (principal); N17.9 Acute kidney failure, unspecified; E46 Unspecified protein-calorie malnutrition; E11.40 Type 2 diabetes mellitus with diabetic neuropathy, unspecified; D64.9 Anemia, unspecified; S00.83XA Contusion of other part of head, initial encounter; I10 Essential (primary) hypertension; M50.00 Cervical disc disorder with myelopathy, unspecified cervical region; N13.30 Unspecified hydronephrosis; N39.0 Urinary tract infection, site not specified; M25.78 Osteophyte, vertebrae; F32.9 Major depressive disorder, single episode, unspecified; K21.9 Gastro-esophageal reflux disease without esophagitis; Z91.81 History of falling; W18.30XA Fall on same level, unspecified, initial encounter; E78.00 Pure hypercholesterolemia, unspecified; N40.0 Benign prostatic hyperplasia without lower urinary tract symptoms; R39.12 Poor urinary stream; Z79.82 Long term (current) use of aspirin; F17.290 Nicotine dependence, other tobacco product, uncomplicated; M48.02 Spinal stenosis, cervical region; I25.10 Atherosclerotic heart disease of native coronary artery without angina pectoris; Z95.5 Presence of coronary angioplasty implant and graft; I25.2 Old myocardial infarction; N32.0 Bladder-neck obstruction; Z80.42 Family history of malignant neoplasm of prostate; B96.20 Unspecified Escherichia coli [E. coli] as the cause of diseases classified elsewhere; Z16.12 Extended spectrum beta lactamase (ESBL) resistance; Z98.1 Arthrodesis status; R31.0 Gross hematuria; Z23 Encounter for immunization
CPT/HCPCS: 70450; 72020; 72125; 72141; 76000; 76775; 80048; 80053; 81001; 82607; 82728; 82746; 82947; 82948; 83540; 83550; 83735; 84100; 84134; 85014; 85018; 85025; 85027; 87077; 87086; 87186; 90686; 90732; 93005; 94150; 94640; 94664; 96365; C1713; J0690; J0696; J1335; J1580; J1610; J1644; J1815; J2270; J3480; J7030; J7042; J7120; J7613; L0150; L0172; Q2038